=== PATIENT | female | born 1955 | race Caucasian/White ===

== ENCOUNTER 2017-09-08 18:40 | Inpatient (IN) | payer MEDICARE, OTHER ==
[~2017-09-08] VITALS: Ht 165.1 cm; Wt 105.3 kg
[~2017-09-08 18:40] MED LIST: ACTIGALL300 MG PO; ALBUTEROL0.63 MG/3; ALDACTONE25 MG PO; CALCIUM CARBON500 MG PO; DICYCLOMINE HCL20 MG PO; GABAPENTIN300 MG PO; GLIPIZIDE-METF1 EAC2 PO; LACTULOSE20 GM/30 M PO; LANTUS100 UNITS/ SC; LASIX20 MG PO; LASIX40 MG PO; LEVAQUIN500 MG PO; LYRICA75 MG PO; MELOXICAM7.5 MG PO; METHOCARBAMOL750 MG PO; NEXIUM40 MG PO; ONGLYZA5 MG PO; POTASSIUM CHLO10 ME1 PO; SUCRALFATE1 GM PO; ULTRAM 50MG50 MG PO; VITAMIN E400 UNIT PO; ZOFRAN ODT4 MG PO
--- OUTSIDE RECORDS SUMMARY | 2017-09-08 18:43 | XMS REPORT | Clinical Summary ---
Author Author YORDAN [facility] Address Unknown Phone Unavailable Care Team Providers Care Traffic Analyst Name Role Phone PCP Unavailable Allergies Active Allergy Reactions Severity Noted Date Comments Codeine 03/28/2013 Meperidine 03/28/2013 Naproxen 03/28/2013 Hydrocodone-Acetaminophen 03/28/2013 Morphine Nausea And Vomiting, Rash Low 08/16/2016 Current Medications Prescription Sig. Disp. Refills Start End Date Status Date spironolactone Take 100 mg by mouth Active (ALDACTONE) 100 MG tablet daily. potassium chloride Take 20 mEq by mouth 2 Active (KLOR-CON) 10 MEQ CR (two) times daily. tablet calcium carbonate (TUMS) Take 1 tablet by mouth Active 500 mg chewable tablet daily. dicyclomine (BENTYL) 20 Take 20 mg by mouth every Active mg tablet 6 (six) hours. furosemide (LASIX) 40 MG Take 20 mg by mouth 2 Active tablet (two) times daily. insulin glargine (LANTUS) Inject 8 Units Active 100 unit/mL injection subcutaneously 2 (two) times daily Use as directed. pregabalin (LYRICA) 75 MG Take 75 mg by mouth Active capsule daily. saxagliptin 5 mg Tab Take 5 mg by mouth daily. Active ursodiol (ACTIGALL) 300 Take 300 mg by mouth 3 Active mg capsule (three) times daily. esomeprazole (NEXIUM) 40 Take 40 mg by mouth Active MG capsule daily. sucralfate (CARAFATE) 1 g Take 1 g by mouth 4 Active tablet (four) times daily. traMADol (ULTRAM) 50 mg Take 50 mg by mouth every Active tablet 6 (six) hours as needed. vitamin E 400 UNIT Take 400 Units by mouth 2 Active capsule (two) times daily. lactulose (CHRONULAC) 10 Take 30 mLs (20 g total) 1892 mL 6 03/31/20 Active gram/15 mL (15 mL) by mouth 3 (three) times 13 solution daily. magnesium 30 mg tablet Take 30 mg by mouth 2 Active (two) times daily. Active Problems Problem Noted Date Screening for malignant neoplasm 07/07/2013 Pleural effusion 03/28/2013 Ascites 03/28/2013 Hernia, incisional 03/28/2013 Cirrhosis (HCC) 03/28/2013 Obesity 03/28/2013 Diabetes mellitus, type 2 (HCC) 03/28/2013 Overview: ICD9 DX Lining Marker COPD (chronic obstructive pulmonary disease) (HCC) 03/28/2013 Encephalopathy, portal systemic (HCC) 03/28/2013 Overview: ICD9 DX Lining Marker Steatosis of liver 03/28/2013 Nausea 03/28/2013 Headache 03/28/2013 SOB (shortness of breath) 03/28/2013 Myalgia 03/28/2013 Fatigue 03/28/2013 Anemia 03/28/2013 Bleeding disorder (HCC) 03/28/2013 Bleeding nose 03/28/2013 Encounters Date Type Specialty Care Team Description 01/10/2017 Orders Only Hepatology Roseline Lucero, SAV Other cirrhosis of liver (HCC) (Primary Dx);Screening for malignant neoplasm 09/18/2016 Telephone Hepatology Kelsey Nation RN EGD/ Colonoscopy results after 09/07/2016 Social History Tobacco Use Types Packs/Day Years Used Date Never Smoker Comments: smokes e cigarettes Alcohol Use Drinks/Week oz/Week Comments No Sex Assigned at Date Recorded Not on file Last Filed Vital Signs Not on file Plan of Treatment Health Maintenance Due Date Last Done Comments INFLUENZA VACCINE 02/04/2018 Results Not on fileafter 09/07/2016
--- OUTSIDE RECORDS SUMMARY | 2017-09-08 18:43 | XMS REPORT ---
Author Author [facility] Address Unknown Phone Unavailable Care Team Providers Care Fruit Or Nut Farmworker Name Role Phone KELSEY GUILLORY Unavailable Unavailable REINALDO, RISE Unavailable Unavailable Problems This patient has no known problems. Allergies, Adverse Reactions, Alerts This patient has no known allergies or adverse reactions. Medications This patient has no known medications. Results Test Description Test Time Test Comments Text Results Atomic Results Result Comments TISSUE EXAM 2016-08-23 10:03:00 Surgical Pathology Report Case: [id number] Authorizing Provider: Kelsey Guillory MD Ordering Provider: Kelsey Guillory MD MPH MPH Ordering Location: [facility] Endoscopy Collected: 08/21/2016 1421 Services Pathologist: Varinder Rodgers MD Received: 2016 0725 Specimen: Stomach, Antrum, bx STOMACH, ANTRUM, BIOPSY: - CHRONIC INACTIVE GASTRITIS - NEGATIVE FOR H. PYLORI BY WARTHIN- STARRY STAIN Signing Pathologist Direct Phone Line: [phone] of liver without ascitesStomach antrum biopsyReceived in formalin labeled "stomach, antrum" are two fragments measuring 0.3 and 0.5 cm in greatest dimension. Entirely submitted A1. DB/plPerformed.The following special studies were performed on this case and the interpretation is incorporated in the diagnostic report above:WARTHIN-STARRY PLATELET COUNT 2016-08-21 11:12:00 PLATELET COUNT (BEAKER) (test cwer=921) 38 K/CU MM 150-430 POTASSIUM-STAT [id number] 10:42:00* Test Item Value Reference Range Comments POTASSIUM (BEAKER) (test jtad=140) 3.3 meq/L 3.6-5.5 POCT-GLUCOSE [id number] 10:37:00* Test Item Value Reference Range Comments POC-GLUCOSE METER (BEAKER) (test ohfq=7322) 126 mg/dL 70-110 TESTED AT [facility] [address] [address] [id number] 17:06:00* Test Item Value Reference Range Comments THYROID STIMULATING HORMONE (BEAKER) (test tivr=703) 1.15 uIU/mL 0.35-4.94 HEMOGLOBIN [id number] 16:43:00* Test Item Value Reference Range Comments HEMOGLOBIN A1C (BEAKER) (test pqmu=807) 7.9 % 4.3-6.1 ALPHA FETOPROTEIN (AFP), TUMOR [id number] 15:18:00* Test Item Value Reference Range Comments ALPHA-FETOPROTEIN (BEAKER) (test nafy=8517) 3.6 ng/mL <10.0 Effective 03/24/2014: Reference Range ChangeNew: <10.0 Previous: 0.0-8.0BASIC METABOLIC [id number] 14:57:00* Test Item Value Reference Range Comments SODIUM (BEAKER) (test etko=875) 137 meq/L 136-145 POTASSIUM (BEAKER) (test xcrt=335) 3.4 meq/L 3.5-5.1 CHLORIDE (BEAKER) (test aitk=020) 103 meq/L 98-107 CO2 (BEAKER) (test gprs=911) 25 meq/L 22-29 BLOOD UREA NITROGEN (BEAKER) (test xuoj=143) 9 mg/dL 7-21 CREATININE (BEAKER) (test fdyy=235) 0.79 mg/dL 0.57-1.25 GLUCOSE RANDOM (BEAKER) (test omft=726) 216 mg/dL 70-105 CALCIUM (BEAKER) (test pwkf=189) 9.2 mg/dL 8.4-10.2 EGFR (BEAKER) (test uqhv=9074) 75 mL/min/1.73 sq m ESTIMATED GFR IS NOT ACCURATE CREATININE CLEARANCE IN PREDICTING GLOMERULAR FILTRATION RATE. ESTIMATED GFR IS NOT APPLICABLE FOR DIALYSIS PATIENTS. Specimen slightly ictericLIPID [id number] 14:57:00* Test Item Value Reference Range Comments TRIGLYCERIDES (BEAKER) (test nntb=553) 54 mg/dL CHOLESTEROL (BEAKER) (test rsse=446) 146 mg/dL HDL CHOLESTEROL (BEAKER) (test kwky=104) 62 mg/dL LDL CHOLESTEROL CALCULATED (BEAKER) (test ypcr=848) 73 mg/dL Triglyceride Reference Range: Low Risk <150 Borderline 150-199 High Risk 200-499 Very High Risk >=500Cholesterol Reference Range: Low Risk <200 Borderline 200-239 High Risk >240HDL Cholesterol Reference Range: Low Risk >=60 High Risk <40LDL Cholesterol Reference Range: Optimal <100 Near Optimal 100-129 Borderline 130-159 High 160-189 Very High >=190 Specimen slightly ictericHEPATIC FUNCTION [id number] 14:57:00* Test Item Value Reference Range Comments TOTAL PROTEIN (BEAKER) (test zmuy=925) 7.3 gm/dL 6.0-8.3 ALBUMIN (BEAKER) (test gbgj=8178) 3.6 g/dL 3.5-5.0 BILIRUBIN TOTAL (BEAKER) (test deeh=276) 3.4 mg/dL 0.2-1.2 BILIRUBIN DIRECT (BEAKER) (test zytp=963) 1.2 mg/dL 0.1-0.5 ALKALINE PHOSPHATASE (BEAKER) (test ukau=222) 137 U/L 40-150 AST (SGOT) (BEAKER) (test ibrv=701) 35 U/L 5-34 ALT (SGPT) (BEAKER) (test urdc=800) 28 U/L 6-55 Specimen slightly ictericGAMMA GLUTAMYL TRANSFERASE (GGT)2016-07-12 14:57:00* Test Item Value Reference Range Comments GAMMA GLUTAMYL TRANSFERASE (BEAKER) (test ggli=641) 99 U/L 9-64 Specimen slightly ictericCBC W/PLT COUNT & AUTO [id number] 14:54:00 * Test Item Value Reference Range Comments WHITE BLOOD CELL COUNT (BEAKER) (test ekjs=110) 4.0 K/ L 4.0-10.0 RED BLOOD CELL COUNT (BEAKER) (test lzeu=960) 4.57 M/ L 4.00-5.00 HEMOGLOBIN (BEAKER) (test njmr=531) 14.1 GM/DL 12.0-15.0 HEMATOCRIT (BEAKER) (test fqtd=584) 40.1 % 36.0-45.0 MEAN CORPUSCULAR VOLUME (BEAKER) (test knue=074) 87.8 fL 82.0-99.0 MEAN CORPUSCULAR HEMOGLOBIN (BEAKER) (test cddh=838) 30.9 pg 27.0-33.0 MEAN CORPUSCULAR HEMOGLOBIN CONC (BEAKER) (test eamh=599) 35.2 GM/DL 32.0- 36.0 RED CELL DISTRIBUTION WIDTH (BEAKER) (test sycx=184) 13.4 % 10.3-14.2 PLATELET COUNT (BEAKER) (test qbim=884) 47 K/CU MM 150-430 MEAN PLATELET VOLUME (BEAKER) (test rklg=921) 10.8 fL 6.5-10.5 NUCLEATED RED BLOOD CELLS (BEAKER) (test scmj=007) 0 /100 WBC 0-0 NEUTROPHILS RELATIVE PERCENT (BEAKER) (test beef=958) 59 % LYMPHOCYTES RELATIVE PERCENT (BEAKER) (test dvxc=320) 29 % MONOCYTES RELATIVE PERCENT (BEAKER) (test natc=404) 7 % EOSINOPHILS RELATIVE PERCENT (BEAKER) (test orsb=963) 3 % BASOPHILS RELATIVE PERCENT (BEAKER) (test btvt=669) 1 % NEUTROPHILS ABSOLUTE COUNT (BEAKER) (test taru=996) 2.36 K/ L 1.80-8.00 LYMPHOCYTES ABSOLUTE COUNT (BEAKER) (test cybt=285) 1.17 K/ L 1.48-4.50 MONOCYTES ABSOLUTE COUNT (BEAKER) (test ncux=067) 0.29 K/ L 0.00-1.30 EOSINOPHILS ABSOLUTE COUNT (BEAKER) (test yucb=557) 0.14 K/ L 0.00-0.50 BASOPHILS ABSOLUTE COUNT (BEAKER) (test gntn=460) 0.04 K/ L 0.00-0.20 0.00PROTHROMBIN TIME/[id number] 14:45:00* Test Item Value Reference Range Comments PROTIME (BEAKER) (test jeuk=723) 15.1 seconds 11.7-14.7 INR (BEAKER) (test zgko=462) 1.2 <=5.9 RECOMMENDED COUMADIN/WARFARIN INR THERAPY RANGESSTANDARD DOSE: 2.0 - 3.0 Includes: PROPHYLAXIS for venous thrombosis, systemic embolization; TREATMENT for venous thrombosis and/or pulmonary embolus.HIGH RISK: Target INR is 2.5-3.5 for patients with mechanical heart valves.
[2017-09-08 19:58] LABS: BASOPHILS % 0.5 % (0.0-1.0); EOSINOPHILS # (AUTO) 0.1 (0.0-0.4); EOSINOPHILS % 3.6 % (0.0-6.0); HEMATOCRIT 36.3 % (34.2-44.1); HEMOGLOBIN 12.9 g/dL (12.0-16.0); LYMPHOCYTES # (AUTO) 1.1 (1.0-3.2); LYMPHOCYTES % 27.3 % (18.0-39.1); MEAN CORPUSCULAR HEMOGLOBIN 28.5 pg (28-32); MEAN CORPUSCULAR HGB CONC 35.5 g/dL (31-35); MEAN CORPUSCULAR VOLUME 80.3 fL (81-99); MONOCYTES # (AUTO) 0.4 (0.2-0.8); MONOCYTES % 9.9 % (4.4-11.3); NEUTROPHILS # (AUTO) 2.2 (2.1-6.9); NEUTROPHILS % 58.4 % (38.7-80.0); RED BLOOD COUNT 4.52 x10e6/uL (3.6-5.1); RED CELL DISTRIBUTION WIDTH 14.5 % (11.7-14.4)
--- NOTE | 2017-09-08 20:09 | Diagnostic Imaging Report ---
EXAM: CHEST SINGLE (NOT PORTABLE), AP 1 view INDICATION: Severe abdominal pain COMPARISON: None FINDINGS: LINES/TUBES: None LUNGS: No consolidations or edema. PLEURA: No effusions or pneumothorax. HEART AND MEDIASTINUM: Normal size and contour. BONES AND SOFT TISSUES: No acute findings. IMPRESSION: No acute thoracic abnormality. Signed by: Dr. Monica Roman M.D. on 09/08/2017 8:06 PM
[2017-09-08 20:12] LABS: PLATELET COUNT 46 x10e3/uL (140-360)
[2017-09-08 20:25] LABS: ALANINE AMINOTRANSFERASE 34 IU/L (0-55); ALBUMIN/GLOBULIN RATIO 0.8 (0.8-2.0); ALKALINE PHOSPHATASE 123 IU/L (40-150); AMYLASE 42 U/L (25-125); ANION GAP 11.8 mmol/L (8-16); BLOOD UREA NITROGEN 9 mg/dL (7-26); BUN/CREATININE RATIO 11 (6-25); CALCIUM 10.5 mg/dL (8.4-10.2); CARBON DIOXIDE 25 mmol/L (22-29); CHLORIDE 103 mmol/L (98-107); CREATINE KINASE 386 IU/L (29-168); CREATININE, SERUM 0.85 mg/dL (0.57-1.11); EST GLOMERULAR FILTRATION RATE > 60 ML/MIN (60-); GLUCOSE 210 mg/dL (74-118); LIPASE 128 U/L (8-78); POTASSIUM 3.8 mmol/L (3.5-5.1); SODIUM 136 mmol/L (136-145)
[2017-09-08] MEDS ORDERED: ONDANSETRON HCL 4 MG ORAL DISINTEGRATING TAB PO ONE (20:30)
[2017-09-08] MEDS ORDERED: IOPAMIDOL 370 MG/ML 200 ML INFUS..BTL INJ ONE (20:49)
[2017-09-08] MEDS ORDERED: SODIUM CHLORIDE 0.9% 50ML 50 ML ONE (20:49)
[2017-09-08] MEDS ORDERED: HYDROMORPHONE 1MG/1ML INJ IV STA (21:44)
[2017-09-08 21:50] LABS: CLARITY,URINE CLOUDY (CLEAR); COLOR,URINE YELLOW (YELLOW)
[2017-09-08 21:51] LABS: LEUKOCYTE ESTERASE ,URINE NEGATIVE (NEGATIVE); NITRITE,URINE POSITIVE (NEGATIVE); PROTEIN,URINE DIPSTICK NEGATIVE (NEGATIVE)
[2017-09-08 21:52] LABS: BILIRUBIN,URINE NEGATIVE (NEGATIVE); KETONES,URINE NEGATIVE (NEGATIVE); URINE UROBILINOGEN 0.2 mg/dL (0.2 - 1)
--- NOTE | 2017-09-08 22:15 | Diagnostic Imaging Report ---
EXAM: CT ABDOMEN AND PELVIS with IV CONTRAST DATE: 09/08/2017 7:27 PM Time stamp on Exam: 2152 hours INDICATION: Diffuse abdominal pain COMPARISON: CT abdomen and pelvis November 19, 2016 TECHNIQUE: The abdomen and pelvis were scanned using a multidetector helical scanner. Coronal and sagittal reformations were obtained. Routine protocol performed. IV Contrast: 100 cc Isovue-370 Oral Contrast: Water CTDIvol has been reviewed. It is below the limits set by the Radiation Protocol Committee (RPC). FINDINGS: LOWER THORAX: Small right pleural effusion with adjacent atelectasis. LIVER: Cirrhotic liver morphology. BILIARY: Cholecystectomy without abnormal ductal dilation. SPLEEN: Splenomegaly PANCREAS: No masses ADRENALS: No nodules KIDNEYS: Symmetric perfusion. No enhancing masses. No hydronephrosis. GI TRACT: Dilated loops of small bowel up to 5 cm with evidence of bowel stagnation at the level of prior small bowel to small bowel anastomotic site. Normal appearance of the colon. VESSELS: Dilation of the portal system, which is patent. Multiple splenic, esophageal and gastric varices. PERITONEUM/RETROPERITONEUM: No free air or fluid LYMPH NODES: No lymphadenopathy REPRODUCTIVE ORGANS: Uterus and ovaries are not visualized. BLADDER: Unremarkable SOFT TISSUES: Surgical changes of ventral hernia repair. BONES: No suspicious bone lesions. IMPRESSION: Partial small bowel obstruction with transition at prior small bowel surgery site in the anterior mid abdomen. Cirrhosis with portal hypertension including splenomegaly and varices. Signed by: Dr. Monica Roman M.D. on 09/08/2017 10:11 PM
[2017-09-08 22:20] LABS: BACTERIA,URINE MANY /HPF; EPITHELIAL CELLS,URINE FEW /LPF; RBC,URINE 0-5 /HPF (0-5); WBC,URINE (MAN) 0-5 /HPF (0-5)
[2017-09-08] MEDS ORDERED: HYDROMORPHONE 1MG/1ML INJ IV PRN (22:45)
[2017-09-08] MEDS ORDERED: ONDANSETRON HCL 4 MG ORAL DISINTEGRATING TAB ONE (22:52)
[2017-09-08] MEDS: ONDANSETRON HCL 4 MG ORAL DISINTEGRATING TAB PO PRN (22:58)
[2017-09-08] MEDS: SODIUM CHLORIDE 0.9% 1000ML 1,000 ML IV SCH (22:58)
[2017-09-08] MEDS ORDERED: CEFOXITIN SOD 1 GM VIAL ONE (23:10)
[2017-09-08] MEDS ORDERED: CEFOXITIN 1GM/ DEXTROSE 50ML 50 ML IV ONE (23:15)
--- OUTSIDE RECORDS SUMMARY | 2017-09-08 23:41 | XMS REPORT | Clinical Summary ---
Author Author YORDAN [facility]St[facility] JeromeUrban TrafficMartin [facility] Address Unknown Phone Unavailable Care Team Providers Care Policy Intern Name Role Phone PCP Unavailable Allergies Active [...] type 2 (HCC) 03/28/2013 Overview: ICD9 DX Diver Tender COPD (chronic obstructive pulmonary disease) (HCC) 03/28/2013 Encephalopathy, portal systemic (HCC) 03/28/2013 Overview: ICD9 DX Diver Tender Steatosis of liver 03/28/2013 Nausea 03/28/2013 Headache [...]
[2017-09-09] VITALS (8 sets, daily range): BP systolic 120–139; BP diastolic 58–61
[2017-09-09] MEDS: METRONIDAZOLE 500MG/NS 100ML 100 ML IV SCH ×5 (00:10→23:16)
[2017-09-09] MEDS: ONDANSETRON HCL 4 MG ORAL DISINTEGRATING TAB PO PRN (03:16)
[2017-09-09] MEDS ORDERED: CEFOXITIN 1GM/ DEXTROSE 50ML ML IV SCH ×2 (06:00)
[2017-09-09] MEDS: CEFOXITIN SOD 1 GM VIAL IV SCH ×3 (06:13→21:42)
[2017-09-09] MEDS: SODIUM CHLORIDE 0.9% 1000ML 1,000 ML IV SCH ×2 (06:43→10:18)
[2017-09-09] MEDS ORDERED: MELOXICAM7.5 MG PO (06:49)
[2017-09-09] MEDS ORDERED: METHIMAZOLE10 MG PO (06:49)
[2017-09-09] MEDS ORDERED: SPIRONOLACTONE25 MG PO (06:49)
[2017-09-09] MEDS ORDERED: LACTULOSE20 GM/30 M PO (06:49)
[2017-09-09] MEDS ORDERED: LISINOPRIL10 MG PO (06:49)
[2017-09-09] MEDS ORDERED: ALBUTEROL0.63 MG/3 IH (06:49)
[2017-09-09] MEDS ORDERED: ROBAXIN-750750 MG PO (06:49)
[2017-09-09] MEDS ORDERED: HEMOCYTE PLUS1 EACH PO (06:49)
[2017-09-09] MEDS ORDERED: URSODIOL300 MG PO (07:07)
[2017-09-09] MEDS ORDERED: ULTRAM 50MG50 MG PO (07:07)
[2017-09-09] MEDS ORDERED: XIFAXAN550 MG PO (07:07)
[2017-09-09] MEDS ORDERED: VENTOLIN HFA18 GM INH (07:07)
[2017-09-09] MEDS ORDERED: LANTUS 3ML100 UNITS/ SC (07:10)
[2017-09-09] MEDS: HYDROMORPHONE 2MG/ML INJ IV PRN ×4 (08:58→23:16)
[2017-09-09 09:14] LABS: BASOPHILS % 0.8 % (0.0-1.0); EOSINOPHILS # (AUTO) 0.1 (0.0-0.4); EOSINOPHILS % 1.6 % (0.0-6.0); HEMATOCRIT 35.4 % (34.2-44.1); HEMOGLOBIN 12.3 g/dL (12.0-16.0); LYMPHOCYTES # (AUTO) 0.6 (1.0-3.2); LYMPHOCYTES % 16.9 % (18.0-39.1); MEAN CORPUSCULAR HEMOGLOBIN 28.1 pg (28-32); MEAN CORPUSCULAR HGB CONC 34.7 g/dL (31-35); MEAN CORPUSCULAR VOLUME 80.8 fL (81-99); MONOCYTES # (AUTO) 0.3 (0.2-0.8); MONOCYTES % 6.8 % (4.4-11.3); NEUTROPHILS # (AUTO) 2.7 (2.1-6.9); NEUTROPHILS % 73.6 % (38.7-80.0); RED BLOOD COUNT 4.38 x10e6/uL (3.6-5.1); RED CELL DISTRIBUTION WIDTH 14.6 % (11.7-14.4)
[2017-09-09] MEDS: ONDANSETRON HCL INJ 2 MG/ML VIAL IV PRN ×4 (09:16→23:16)
[2017-09-09 09:20] LABS: PLATELET COUNT 38 x10e3/uL (140-360)
[2017-09-09 09:29] LABS: ALANINE AMINOTRANSFERASE 40 IU/L (0-55); ALBUMIN 2.7 g/dL (3.5-5.0); ALBUMIN/GLOBULIN RATIO 0.8 (0.8-2.0); ALKALINE PHOSPHATASE 117 IU/L (40-150); AMYLASE 99 U/L (25-125); ANION GAP 11.1 mmol/L (8-16); BLOOD UREA NITROGEN 11 mg/dL (7-26); BUN/CREATININE RATIO 14 (6-25); CALCIUM 9.2 mg/dL (8.4-10.2); CARBON DIOXIDE 24 mmol/L (22-29); CHLORIDE 103 mmol/L (98-107); EST GLOMERULAR FILTRATION RATE > 60 ML/MIN (60-); LIPASE 568 U/L (8-78); POTASSIUM 4.1 mmol/L (3.5-5.1); SODIUM 134 mmol/L (136-145)
[2017-09-09 10:37] LABS: GLUCOSE 198 mg/dL (74-118)
[2017-09-09] MEDS ORDERED: ONDANSETRON HCL 4 MG ORAL DISINTEGRATING TAB PO PRN (11:45)
[2017-09-09] MEDS ORDERED: DEXTROSE 50% SYRINGE 50 ML IV PRN (12:00)
[2017-09-09] MEDS ORDERED: TRAMADOL HCL 50 MG TAB PO SCH (12:00)
[2017-09-09] MEDS: INSULIN LISPRO 100 UNIT/1 ML 3ML VIAL SQ SCH ×3 (12:14→21:41)
[2017-09-09] MEDS ORDERED: TRAMADOL HCL 50 MG TAB PO PRN ×2 (12:15)
--- NOTE | 2017-09-09 14:57 | History and Physical ---
PRIMARY CARE PHYSICIAN: Dr. Cj Samuels. CHIEF COMPLAINT: Abdominal pain, nausea, vomiting, and small bowel obstruction. HISTORY OF PRESENT ILLNESS: Patient is a 61-year-old female who lives at [facility]. The patient has history of cryptogenic liver cirrhosis, advanced stage, presented with abdominal pain, distention, and nausea and vomiting. She is stable now. This has been going on for the past week, much worsened. Her laboratory workup showed that her platelets are low, which is consistent with her liver cirrhosis. Her blood sugar is elevated. Patient's lipase was slightly elevated. She does have chronic pancreatitis. Blood sugar is in the 200s. Liver enzymes slightly elevated as well. Patient had workup done. The abdominal CT scan is showing that she has partial small bowel obstruction with , had prior small bowel surgery in the anterior mid abdomen. She does have cirrhosis, portal hypertension including splenomegaly, and . The patient is admitted for further evaluation and treatment. PAST MEDICAL HISTORY: Cryptogenic liver cirrhosis, morbid obesity, diabetes type 2, chronic pancreatitis, COPD, irritable bowel syndrome, obstructive sleep apnea, reflux history, and chronic esophagitis. PAST SURGICAL HISTORY: Appendectomy, cholecystectomy, and hysterectomy. SOCIAL HISTORY: Patient lives at [facility]. She does not smoke or use alcohol or recreational drugs. ALLERGIES: MEPERIDINE, METFORMIN, NAPROXEN, ACETAMINOPHEN, HYDROCODONE, CODEINE, MORPHINE, GLIPIZIDE, AND NSAID. HOME MEDICATIONS: Albuterol, iron, Lasix, Lantus, lactulose, lisinopril, meloxicam, methimazole, Robaxin, rifaximin, spironolactone, tramadol, ursodiol, and Zofran. PHYSICAL EXAMINATION VITAL SIGNS: Temperature is 99, blood pressure 160/70, pulse rate 84, and respirations 18. GENERAL: The patient is not in any acute distress. She is awake. HEENT: Normocephalic, atraumatic. Anicteric. NECK: Supple grossly. PULMONARY: Diminished breath sounds. CARDIOVASCULAR: S1 and S2. Regular rate and rhythm. ABDOMEN: Morbidly obese, slight distention and some tenderness. No rebound or guarding. EXTREMITIES: No cyanosis or edema. NEUROLOGIC: No gross focal deficits. LABORATORY: Sodium 136, potassium 3.8, chloride 103, bicarb 25, BUN 9, creatinine 0.8, and glucose 210. WBC 2.8, hemoglobin 13, hematocrit 36, and platelets 46. AST is 45, ALT 34, and alkaline phosphatase 123. IMPRESSION 1. Small bowel obstruction. 2. Abdominal pain and distention. 3. History of liver cirrhosis with history of baseline thrombocytopenia. 4. Possible urinary tract infection with urinalysis of positive nitrite and many bacteria. 5. Cloudy urine, 2+ leukos. PLAN 1. Antibiotics. 2. Home medications resumed. 3. Repeated lab work. 4. Slight rehydration. 1. NPO except for medication at this time. 2. We will monitor the patient closely. Job#: [id number] DOMINIQUE
[2017-09-09] MEDS: ALBUTEROL SULF 0.083% NEB SOLN 3 ML NEB NEB SCH ×3 (15:00→23:10)
[2017-09-09] MEDS: RIFAXIMIN 550 MG TABLET PO SCH (16:54)
[2017-09-09] MEDS: INSULIN DETEMIR 100 UNIT/ML PEN SQ SCH (16:54)
--- NOTE | 2017-09-09 17:18 | Consultation ---
DATE OF CONSULTATION: September 09, 2017 CHIEF COMPLAINT: Abdominal pain. HISTORY OF PRESENT ILLNESS: The patient is a 61-year-old female with a 1-day history of pain in periumbilical and epigastric regions, cramping in nature, with several bouts of vomiting today. No fever, chills or diarrhea. The patient has passed flatus. The patient states she had recurrent bowel obstruction requiring several days of hospitalization in the past. PAST MEDICAL HISTORY: Significant for liver cirrhosis, recurrent pancreatitis, recurrent bowel obstruction, hepatic encephalopathy. SURGICAL HISTORY: Positive for hiatal hernia repair, cholecystectomy, several abdominal operations for bowel obstruction as well as bowel perforation. ALLERGIES: PATIENT HAS ALLERGIC REACTION TO ALL NSAID MEDICATIONS, CODEINE, TYLENOL, GLIPIZIDE, METFORMIN, MORPHINE AND DEMEROL. SOCIAL HABITS: Denies alcohol abuse. REVIEW OF SYSTEMS: No chest pain. No shortness of breath. PHYSICAL EXAMINATION VITAL SIGNS: Stable. She is afebrile. GENERAL: She is awake, alert, in moderate discomfort. HEENT: Sclerae are anicteric. NECK: Supple. LUNGS: Clear. HEART: Regular rate and rhythm. ABDOMEN: Moderately distended but soft. There is tenderness to palpation in the epigastric and supraumbilical area with mild guarding but no rebound. EXTREMITIES: Without cyanosis or edema. LABS: White cell count is 3.6, hemoglobin 12. Creatinine of 0.8. Liver function tests within normal limits. Bilirubin of 4.7, alkaline phosphatase 117, lipase 568. CT of the abdomen showed partial intestinal obstruction in the mid abdomen. Portal hypertension secondary to cirrhotic liver. ASSESSMENT: Recurrent small-bowel obstruction. Currently no vomiting. PLAN: Continue serial abdominal exams and x-rays. Follow serum lipase. Thank you for this consultation. Job#: [id number]
[2017-09-09] MEDS ORDERED: METHOCARBAMOL 750 MG TAB PO SCH (21:00)
[2017-09-09] MEDS ORDERED: LISINOPRIL 10 MG TAB PO SCH (21:00)
[2017-09-09] MEDS: LISINOPRIL 20 MG TAB PO SCH (21:41)
[2017-09-09] MEDS: METHOCARBAMOL 500 MG TAB PO SCH (21:41)
[2017-09-09] MEDS ORDERED: CEFOXITIN SOD 1 GM VIAL IV SCH (23:00)
[2017-09-10] VITALS (8 sets, daily range): BP systolic 87–108; BP diastolic 47–66
[2017-09-10] MEDS: ALBUTEROL SULF 0.083% NEB SOLN 3 ML NEB NEB SCH ×5 (03:50→20:00)
[2017-09-10] MEDS: HYDROMORPHONE 2MG/ML INJ IV PRN ×4 (03:58→22:10)
[2017-09-10] MEDS: ONDANSETRON HCL INJ 2 MG/ML VIAL IV PRN ×4 (03:58→22:11)
[2017-09-10] MEDS: SODIUM CHLORIDE 0.9% 1000ML 1,000 ML IV SCH ×2 (03:58→17:32)
[2017-09-10] MEDS: CEFOXITIN SOD 1 GM VIAL IV SCH ×3 (05:29→22:00)
[2017-09-10] MEDS: METRONIDAZOLE 500MG/NS 100ML 100 ML IV SCH ×5 (05:29→23:35)
--- NOTE | 2017-09-10 06:11 | Diagnostic Imaging Report ---
EXAM: ABDOMEN-1VIEW (KUB), supine INDICATION: Small bowel obstruction COMPARISON: None FINDINGS: LINES/TUBES: None BOWEL PATTERN: No evidence for obstruction. SOFT TISSUES: Surgical clips right upper quadrant of the abdomen. BONES: No acute findings. IMPRESSION: Nonobstructive bowel gas pattern. Signed by: Dr. Monica Roman M.D. on 09/10/2017 6:07 AM
[2017-09-10 06:50] LABS: BASOPHILS % 0.7 % (0.0-1.0); EOSINOPHILS # (AUTO) 0.1 (0.0-0.4); HEMATOCRIT 36.4 % (34.2-44.1); HEMOGLOBIN 12.2 g/dL (12.0-16.0); LYMPHOCYTES # (AUTO) 0.5 (1.0-3.2); MEAN CORPUSCULAR HEMOGLOBIN 28.6 pg (28-32); MEAN CORPUSCULAR HGB CONC 33.5 g/dL (31-35); MEAN CORPUSCULAR VOLUME 85.2 fL (81-99); MONOCYTES # (AUTO) 0.5 (0.2-0.8); MONOCYTES % 11.9 % (4.4-11.3); NEUTROPHILS # (AUTO) 3.3 (2.1-6.9); RED BLOOD COUNT 4.27 x10e6/uL (3.6-5.1); RED CELL DISTRIBUTION WIDTH 14.9 % (11.7-14.4)
[2017-09-10 07:10] LABS: PLATELET COUNT 38 x10e3/uL (140-360)
[2017-09-10 07:18] LABS: ALBUMIN 2.5 g/dL (3.5-5.0); ALBUMIN/GLOBULIN RATIO 0.8 (0.8-2.0); ANION GAP 14.9 mmol/L (8-16); CALCIUM 8.5 mg/dL (8.4-10.2); CREATININE, SERUM 1.18 mg/dL (0.57-1.11); POTASSIUM 3.9 mmol/L (3.5-5.1)
[2017-09-10 07:41] LABS: THYROID STIMULATING HORMONE 0.778 uIU/mL (0.350-4.940)
[2017-09-10 07:45] LABS: MAGNESIUM 1.1 MG/DL (1.3-2.1)
[2017-09-10] MEDS: INSULIN LISPRO 100 UNIT/1 ML 3ML VIAL SQ SCH ×4 (08:30→21:26)
[2017-09-10] MEDS ORDERED: METHIMAZOLE PO SCH (09:00)
[2017-09-10] MEDS: METHIMAZOLE 5 MG TAB PO SCH (09:02)
[2017-09-10] MEDS: INSULIN DETEMIR 100 UNIT/ML PEN SQ SCH ×2 (09:02→17:32)
[2017-09-10] MEDS: LACTULOSE SYRUP 20 GM/30 ML UDC PO SCH (09:02)
[2017-09-10] MEDS: RIFAXIMIN 550 MG TABLET PO SCH ×2 (09:02→17:32)
[2017-09-10 09:33] LABS: ANISOCYTOSIS SLIGHT; BLAST CELLS % MANUAL 1; EOSINOPHILS % (MANUAL) 1 % (0-7); LYMPHOCYTES % (MANUAL) 15 % (19-48); MONOCYTES % (MANUAL) 4 % (3.4-9.0); NEUTROPHILS % (MANUAL) 79 % (40-74); PLATELET ESTIMATE MODERATELY DECREASED; RBC MORPHOLOGY COMMENT NORMAL; TEAR DROP CELLS FEW
[2017-09-10 09:34] LABS: PLATELET MORPHOLOGY COMMENT FEW GIANT
[2017-09-10] MEDS ORDERED: MAGNESIUM SULFATE 2GM/50ML 50 ML IV ONE ×3 (16:30→21:45)
[2017-09-10] MEDS: METHOCARBAMOL 500 MG TAB PO SCH (21:26)
[2017-09-10] MEDS: LISINOPRIL 20 MG TAB PO SCH (21:30)
[2017-09-11] MEDS: METRONIDAZOLE 500MG/NS 100ML 100 ML IV SCH ×3 (01:00→12:39)
[2017-09-11 01:11] VITALS: BP 102/51
[2017-09-11] MEDS: ALBUTEROL SULF 0.083% NEB SOLN 3 ML NEB NEB SCH ×8 (01:15→23:00)
[2017-09-11] MEDS: CEFOXITIN SOD 1 GM VIAL IV SCH ×3 (05:26→22:00)
--- NOTE | 2017-09-11 06:36 | Diagnostic Imaging Report ---
ABDOMEN-1VIEW (KUB) Clinical history: Small bowel obstruction Technique: AP view abdomen Comparison: 09/10/2017 Findings: No dilated loops of small or large bowel. Mild to moderate stool is seen in the colon. Right upper quadrant clips. Impression: Nonobstructive bowel gas pattern. Signed by: Dr Kathrin Gross MD on 09/11/2017 6:33 AM
[2017-09-11 08:00] VITALS: BP 98/52
[2017-09-11] MEDS: INSULIN LISPRO 100 UNIT/1 ML 3ML VIAL SQ SCH ×4 (08:00→21:00)
[2017-09-11] MEDS: HYDROMORPHONE 2MG/ML INJ IV PRN (08:30)
[2017-09-11] MEDS: INSULIN DETEMIR 100 UNIT/ML PEN SQ SCH ×2 (09:00→17:20)
[2017-09-11] MEDS: SODIUM CHLORIDE 0.9% 1000ML 1,000 ML IV SCH (09:36)
[2017-09-11] MEDS: METHIMAZOLE 5 MG TAB PO SCH (09:37)
[2017-09-11] MEDS: RIFAXIMIN 550 MG TABLET PO SCH ×2 (09:37→17:19)
[2017-09-11] MEDS: LACTULOSE SYRUP 20 GM/30 ML UDC PO SCH (09:37)
[2017-09-11 12:00] VITALS: BP 99/49
[2017-09-11 16:00] VITALS: BP 132/55
[2017-09-11] MEDS ORDERED: FUROSEMIDE 40 MG TAB PO SCH (17:00)
[2017-09-11 20:00] VITALS: BP 137/63
[2017-09-11] MEDS: LISINOPRIL 20 MG TAB PO SCH (22:27)
[2017-09-11] MEDS: ONDANSETRON HCL 4 MG ORAL DISINTEGRATING TAB SL PRN (22:27)
[2017-09-11] MEDS: METHOCARBAMOL 500 MG TAB PO SCH (22:27)
[2017-09-12] VITALS (7 sets, daily range): BP systolic 111–143; BP diastolic 51–63
[2017-09-12] MEDS: ALBUTEROL SULF 0.083% NEB SOLN 3 ML NEB NEB SCH ×5 (03:00→23:20)
[2017-09-12] MEDS: CEFOXITIN SOD 1 GM VIAL IV SCH (05:38)
[2017-09-12] MEDS: ONDANSETRON HCL 4 MG ORAL DISINTEGRATING TAB SL PRN (05:45)
[2017-09-12] MEDS ORDERED: AZTREONAM 1 GM/NS 50 ML 50 ML IV SCH (08:45)
[2017-09-12] MEDS ORDERED: PROMETHAZINE 12.5MG/ NACL 0.9% 12.5 MG/50 ML BAG IV PRN (08:45)
[2017-09-12] MEDS: LACTULOSE SYRUP 20 GM/30 ML UDC PO SCH (09:00)
[2017-09-12] MEDS ORDERED: SODIUM CHLORIDE 0.9% 250ML 250 ML ONE (09:02)
[2017-09-12] MEDS: INSULIN LISPRO 100 UNIT/1 ML 3ML VIAL SQ SCH ×4 (09:16→21:20)
[2017-09-12] MEDS: INSULIN DETEMIR 100 UNIT/ML PEN SQ SCH ×2 (09:16→17:10)
[2017-09-12] MEDS: FUROSEMIDE INJ 10 MG/ML 4 ML VIAL IV SCH (09:16)
[2017-09-12 09:35] LABS: ALANINE AMINOTRANSFERASE 37 IU/L (0-55); ALBUMIN 2.5 g/dL (3.5-5.0); ALBUMIN/GLOBULIN RATIO 0.8 (0.8-2.0); ALKALINE PHOSPHATASE 128 IU/L (40-150); ANION GAP 12.5 mmol/L (8-16); BLOOD UREA NITROGEN 15 mg/dL (7-26); BUN/CREATININE RATIO 19 (6-25); CALCIUM 8.4 mg/dL (8.4-10.2); CARBON DIOXIDE 23 mmol/L (22-29); CHLORIDE 107 mmol/L (98-107); CREATININE, SERUM 0.77 mg/dL (0.57-1.11); EST GLOMERULAR FILTRATION RATE > 60 ML/MIN (60-); GLUCOSE 128 mg/dL (74-118); LIPASE 72 U/L (8-78); PHOSPHORUS 2.3 MG/DL (2.3-4.7); POTASSIUM 4.5 mmol/L (3.5-5.1); SODIUM 138 mmol/L (136-145)
[2017-09-12 09:38] LABS: MAGNESIUM 1.1 MG/DL (1.3-2.1)
[2017-09-12] MEDS: METHIMAZOLE 5 MG TAB PO SCH (10:06)
[2017-09-12] MEDS: RIFAXIMIN 550 MG TABLET PO SCH ×2 (10:06→17:10)
[2017-09-12] MEDS: SPIRONOLACTONE 25 MG TAB PO SCH (10:06)
[2017-09-12] MEDS: AZTREONAM 1 GM VIAL IV SCH ×2 (10:07→22:00)
[2017-09-12] MEDS: METOCLOPRAMIDE HCL 10 MG/2ML VIAL IV SCH ×3 (12:37→22:00)
--- NOTE | 2017-09-12 16:29 | Consultation ---
DATE OF CONSULTATION: September 12, 2017 GASTROENTEROLOGY CONSULTATION REFERRING PHYSICIAN: Dr. Luis Key. REASON FOR CONSULT 1. BALDERAS liver cirrhosis with portal hypertension. 2. Partial small-bowel obstruction. 3. Upper abdominal pain x2 days. HISTORY OF PRESENTING ILLNESS: A 61-year-old very pleasant white female who is a patient of my associate, Dr. Gee. She was seen by him less than a year ago. She also has had upper endoscopy as well as colonoscopy sometime in the beginning of the last year. Patient also has a history of cholecystectomy. As per patient, during cholecystectomy there occurred some complication and the small bowel got nicked. Therefore, she also ended up getting some portion of small bowel resected followed by end-to-end anastomosis. She got admitted this time with abdominal pain, nausea, vomiting. A CT of the abdomen done in the emergency room showed a partial small-bowel obstruction. She was treated conservatively under supervision of surgeon Dr. Brooks. Small-bowel obstruction subsequently got resolved. She is eating as well as having a bowel movement. CT also showed cirrhotic liver, no ascites, esophageal as well as gastric varices with splenomegaly. Lab work revealed expected thrombocytopenia from underlying portal hypertension. She also had an abdominal x-ray done today that showed a nonobstructive bowel-gas pattern. Patient does not have any history of reflux. However, she does admit to have some burning sour taste in mouth as well as upper abdominal pain. REVIEW OF SYSTEMS: A 12-point systems reviewed. Symptomatology is limited as per HPI. PAST MEDICAL HISTORY: BALDERAS liver cirrhosis, obesity, type 2 diabetes, history of pancreatitis in the past, COPD, irritable bowel syndrome, obstructive sleep apnea, history of esophagitis in the past. PAST SURGICAL HISTORY: Cholecystectomy, hysterectomy, appendectomy, some small-bowel surgery with end-to-end anastomosis. FAMILY HISTORY: Negative for any GI or FLOODPLAIN MANAGER malignancy. SOCIAL HISTORY: Lives in [facility]. No smoke, alcohol or any illicit drug use. ALLERGIES: MEPERIDINE, METFORMIN, NAPROXEN, ACETAMINOPHEN, HYDROCODONE, CODEINE, MORPHINE, GLIPIZIDE AND NSAIDS. HOME MEDICATION: Albuterol, iron, Lasix, Lantus, lactulose, lisinopril, meloxicam, methimazole, Robaxin, rifaximin, spironolactone, tramadol, ursodiol, Zofran. PHYSICAL EXAMINATION VITAL SIGNS: Temperature 98.1, pulse 89, respiration 16, blood pressure 143/63, oxygen saturation 96% on room air. GENERAL: Not in any apparent distress. HEENT: Moist mucous membrane. Anicteric sclerae. CVS: S1/S2 regular. LUNGS: Bilaterally grossly clear with decreased breath sounds at both bases. ABDOMEN: Obese. Right upper quadrant and epigastric tenderness on deep palpation without rebound, rigidity or guarding. Bowel sounds present. EXTREMITIES: Warm. Trace bilateral leg edema. LAB: WBC 4.45, hemoglobin 12.2, hematocrit 36.4, MCV 85.2, platelet count 38. Sodium 138, potassium 4.5, chloride 107, bicarb 23, BUN 15, creatinine 0.77, glucose 128. Liver enzymes showed a total bilirubin 2.7, AST 65, ALT 37, alkaline phosphatase 128. Albumin 2.2. Amylase and lipase level normal today. Lipase level was elevated to 568, came down to 418 and 72 today. Abdominal x-ray done yesterday showed a nonobstructive bowel-gas pattern. IMPRESSION 1. Small-bowel obstruction, resolved. 2. Decompensated liver cirrhosis with underlying portal hypertension. No ascites. Therefore, abdominal pain cannot be due to any underlying spontaneous bacterial peritonitis. 3. Tenderness, abdominal pain is mainly in the upper quadrant. She also has a history of reflux as well as esophagitis in the past. She is not on any PPI. PLAN: From GI standpoint, give it a trial of PPI. Avoid NSAIDs. If patient's pain gets better, then she can be discharged home to follow with Dr. Gee within a week or two. She is getting intravenous aztreonam empirically for possible urinary tract infection. Her elevated lipase level is not due to any underlying pancreatitis. Pancreas is normal on CT. Elevated lipase level was secondary to a small-bowel obstruction which has resolved. I thank Dr. Key for allowing me to participate in the care of this patient. Job#: [id number] EV
[2017-09-12] MEDS ORDERED: MAGNESIUM SULFATE 2GM/50ML 50 ML IV ONE ×2 (16:45→20:00)
[2017-09-12] MEDS: PANTOPRAZOLE SOD 40 MG TABEC PO SCH (17:09)
[2017-09-12 18:22] LABS: BILIRUBIN,URINE NEGATIVE (NEGATIVE); CLARITY,URINE CLEAR (CLEAR); COLOR,URINE AMBER (YELLOW); KETONES,URINE NEGATIVE (NEGATIVE); LEUKOCYTE ESTERASE ,URINE NEGATIVE (NEGATIVE); NITRITE,URINE NEGATIVE (NEGATIVE); PROTEIN,URINE DIPSTICK NEGATIVE (NEGATIVE); URINE UROBILINOGEN 0.2 mg/dL (0.2 - 1)
[2017-09-12 18:39] LABS: EPITHELIAL CELLS,URINE MANY /LPF; RBC,URINE 0-5 /HPF (0-5); WBC,URINE (MAN) 0-5 /HPF (0-5)
[2017-09-12] MEDS: METHOCARBAMOL 500 MG TAB PO SCH (21:19)
[2017-09-12] MEDS: LISINOPRIL 20 MG TAB PO SCH (21:19)
[2017-09-13] VITALS: BP 102/50
[2017-09-13] MEDS: ALBUTEROL SULF 0.083% NEB SOLN 3 ML NEB NEB SCH ×2 (02:45→08:49)
[2017-09-13 04:00] VITALS: BP 104/50
[2017-09-13] MEDS: INSULIN LISPRO 100 UNIT/1 ML 3ML VIAL SQ SCH (07:30)
[2017-09-13 07:36] VITALS: BP 104/50
[2017-09-13 07:39] LABS: ALANINE AMINOTRANSFERASE 34 IU/L (0-55); ALBUMIN 2.4 g/dL (3.5-5.0); ALBUMIN/GLOBULIN RATIO 0.8 (0.8-2.0); ALKALINE PHOSPHATASE 119 IU/L (40-150); ANION GAP 11.6 mmol/L (8-16); BLOOD UREA NITROGEN 16 mg/dL (7-26); BUN/CREATININE RATIO 20 (6-25); CALCIUM 8.8 mg/dL (8.4-10.2); CARBON DIOXIDE 28 mmol/L (22-29); CHLORIDE 106 mmol/L (98-107); CREATININE, SERUM 0.82 mg/dL (0.57-1.11); EST GLOMERULAR FILTRATION RATE > 60 ML/MIN (60-); GLUCOSE 114 mg/dL (74-118); MAGNESIUM 1.7 MG/DL (1.3-2.1); PHOSPHORUS 3.6 MG/DL (2.3-4.7); POTASSIUM 4.6 mmol/L (3.5-5.1); SODIUM 141 mmol/L (136-145)
[2017-09-13 08:23] VITALS: BP_SYST 100; BP_SYST 138; BP_DIAS 50; BP_DIAS 63
[2017-09-13] MEDS: LACTULOSE SYRUP 20 GM/30 ML UDC PO SCH (08:24)
[2017-09-13] MEDS: INSULIN DETEMIR 100 UNIT/ML PEN SQ SCH (08:24)
[2017-09-13] MEDS: FUROSEMIDE INJ 10 MG/ML 4 ML VIAL IV SCH (08:24)
[2017-09-13] MEDS: METOCLOPRAMIDE HCL 10 MG/2ML VIAL IV SCH (08:24)
[2017-09-13] MEDS: RIFAXIMIN 550 MG TABLET PO SCH (08:24)
[2017-09-13] MEDS: SPIRONOLACTONE 25 MG TAB PO SCH (08:24)
[2017-09-13] MEDS: METHIMAZOLE 5 MG TAB PO SCH (08:24)
[2017-09-13] MEDS: AZTREONAM 1 GM VIAL IV SCH (08:24)
[2017-09-13] MEDS: PANTOPRAZOLE SOD 40 MG TABEC PO SCH (08:24)
--- NOTE | 2017-09-13 09:48 | Discharge Summary ---
PCP: Dr. Cj Waters MIDDLE SCHOOL TUTOR: Dr. Jason Brooks and Dr. Memo Gee. FINAL DIAGNOSES 1. Small-bowel obstruction. 2. Baseline history of liver cirrhosis associated with thrombocytopenia. 3. Chronic pancreatitis associated abdominal pain. 4. Possible early spontaneous bacterial peritonitis. SUMMARY: A 61-year-old obese female with multiple medical problems at baseline came in with abdominal distention and pain. Patient had multiple abdominal surgeries in the past. She has liver cirrhosis. The patient came in with small-bowel obstruction evidenced on CT and repeated KUB. Patient was treated conservatively. She was nauseated, but no vomiting. No NG tube was placed due to risk for bleed secondary to liver cirrhosis. Patient was placed on nothing by mouth, and subsequently advanced diet as she gets better with abdominal distention improved and small-bowel obstruction improved as well. Currently, the patient is stable. Her lipase was in the 500s. Lipase last was 72. Her magnesium was low and it has been replaced. The patient is stable. BUN and creatinine of 16 and 0.8. The patient's platelets are running from 38,000 to 46,000. That is her baseline. She does have leukopenia secondary to liver cirrhosis as well. Her hemoglobin and hematocrit is 12.2 and 36.4 respectively. Urine is stable. No sign of infection. The patient is stable. She will go home today. She will follow up as an outpatient with Dr. Cj Waters. Of note, her B12 level was 645. DISCHARGE MEDICATIONS 1. Magnesium oxide 400 mg twice a day. 2. Cipro 500 mg b.i.d. for 7 days. 3. Diflucan 100 mg daily for 7 days. Patient is stable and discharged home today. Job#: [id number] LA
== END 2017-09-13 11:15 | disposition home or self-care (01) | DRG 388 ==
LOC: ER 18:40 → ERHOLD 23:39 → MED/SURG2 09-09 03:13 → MED/SURG 09-11 20:18
PROVIDERS: ADMIT Internal Medicine; ATTEND Internal Medicine
DX: K56.51 Intestinal adhesions [bands], with partial obstruction (principal); K65.2 Spontaneous bacterial peritonitis; K86.1 Other chronic pancreatitis; K76.6 Portal hypertension; N39.0 Urinary tract infection, site not specified; D69.59 Other secondary thrombocytopenia; G89.29 Other chronic pain; K75.81 Nonalcoholic steatohepatitis (NASH); J44.9 Chronic obstructive pulmonary disease, unspecified; E66.01 Morbid (severe) obesity due to excess calories; Z68.38 Body mass index [BMI] 38.0-38.9, adult; G47.33 Obstructive sleep apnea (adult) (pediatric); E86.0 Dehydration; D72.818 Other decreased white blood cell count
CPT/HCPCS: 36415; 71045; 74018; 74177; 80053; 81001; 82140; 82150; 82550; 82553; 82607; 82948; 83036; 83690; 83735; 84100; 84443; 84484; 85025; 93005; 94640; 96374; 97139; 99284; J0694; J1940; J2405; J2550; J2765; J7030; J7050; Q9967

== ENCOUNTER 2018-07-22 15:27 | Emergency (ER) | payer OTHER ==
[~2018-07-22] VITALS: Ht 165.1 cm; Wt 81.2 kg
[~2018-07-22 15:27] MED LIST changes: +ALBUTEROL0.63 MG/3 IH; +HEMOCYTE PLUS1 EACH PO; +LANTUS 3ML100 UNITS/ SC; +LISINOPRIL10 MG PO; +METHIMAZOLE10 MG PO; +ROBAXIN-750750 MG PO; +SPIRONOLACTONE25 MG PO; +URSODIOL300 MG PO; +VENTOLIN HFA18 GM INH; +XIFAXAN550 MG PO
--- OUTSIDE RECORDS SUMMARY | 2018-07-22 15:30 | XMS REPORT | Clinical Summary ---
Author Author YORDAN [facility] Address Unknown Phone Unavailable Care Team Providers Care Laundry Clerk Name Role Phone Cj Waters PCP Allergies Comments Active Allergy Reactions Severity Noted Date Codeine 03/28/2013 Meperidine 03/28/2013 Morphine Nausea And Low 08/16/2016 Vomiting, Rash Naproxen 03/28/2013 Hydrocodone-Acetaminophen 03/28/2013 Medications End Date Status Medication Sig Dispensed Refills Start Date Active spironolactone Take 100 mg 0 (ALDACTONE) 100 MG tablet by mouth daily. Active potassium chloride Take 20 mEq 0 (KLOR-CON) 10 MEQ CR by mouth 2 tablet (two) times daily. Active calcium carbonate (TUMS) Take 1 tablet 0 500 mg chewable tablet by mouth daily. Active dicyclomine (BENTYL) 20 Take 20 mg by 0 mg tablet mouth every 6 (six) hours. Active furosemide (LASIX) 40 MG Take 20 mg by 0 tablet mouth 2 (two) times daily. Active insulin glargine (LANTUS) Inject 8 0 100 unit/mL injection Units subcutaneousl y 2 (two) times daily Use as directed. Active pregabalin (LYRICA) 75 MG Take 75 mg by 0 capsule mouth daily. Active saxagliptin 5 mg Tab Take 5 mg by 0 mouth daily. Active ursodiol (ACTIGALL) 300 Take 300 mg 0 mg capsule by mouth 3 (three) times daily. Active esomeprazole (NEXIUM) 40 Take 40 mg by 0 MG capsule mouth daily. Active sucralfate (CARAFATE) 1 g Take 1 g by 0 tablet mouth 4 (four) times daily. Active traMADol (ULTRAM) 50 mg Take 50 mg by 0 tablet mouth every 6 (six) hours as needed. Active vitamin E 400 UNIT Take 400 0 capsule Units by mouth 2 (two) times daily. Active lactulose (CHRONULAC) 10 Take 30 mLs 1892 mL 6 gram/15 mL (15 mL) (20 g total) 3 solution by mouth 3 (three) times daily. Active magnesium 30 mg tablet Take 30 mg by 0 mouth 2 (two) times daily. Active Problems Problem Noted Date Screening for malignant neoplasm 07/07/2013 Pleural effusion 03/28/2013 Ascites 03/28/2013 Hernia, incisional 03/28/2013 Cirrhosis 03/28/2013 Obesity 03/28/2013 Diabetes mellitus, type 2 03/28/2013 Overview: ICD9 DX Rail Manager COPD (chronic obstructive pulmonary disease) 03/28/2013 Encephalopathy, portal systemic 03/28/2013 Overview: ICD9 DX Rail Manager Steatosis of liver 03/28/2013 Nausea 03/28/2013 Headache 03/28/2013 SOB (shortness of breath) 03/28/2013 Myalgia 03/28/2013 Fatigue 03/28/2013 Anemia 03/28/2013 Bleeding disorder 03/28/2013 Bleeding nose 03/28/2013 Social History Date Tobacco Use Types Packs/Day Years Used Never Smoker Comments: smokes e cigarettes Alcohol Use Drinks/Week oz/Week Comments No Sex Assigned at Date Recorded Not on file Industry Job Start Date Occupation Not on file Not on file Not on file Travel End Travel History Travel Start No recent travel history available. Last Filed Vital Signs Not on file Plan of Treatment Health Maintenance Due Date Last Done Comments INFLUENZA VACCINE 02/04/2018 Results Not on fileafter 07/21/2017 Insurance Payer Benefit Subscriber ID Type Phone Address Plan / Group MEDICAID - MEDICAID [facility] xxxxxxxxx Medicaid CARE COMM STAR Contracted PLAN
--- NOTE | 2018-07-22 17:21 | Diagnostic Imaging Report ---
EXAMINATION: CHEST 2 VIEWS INDICATION 62-year-old female, rule out pneumonia COMPARISON: Chest radiograph dated 09/08/2017 FINDINGS: AP and lateral views of the chest TUBES and LINES: None. LUNGS/PLEURA: Mild opacity in the right lower lobe may represent developing airspace disease versus atelectasis due to pleural effusion. Small to moderate right and small left pleural effusions. HEART AND MEDIASTINUM: The cardiomediastinal silhouette is unremarkable. BONES AND SOFT TISSUES: No acute osseous lesion. Soft tissues are unremarkable. UPPER ABDOMEN: No free air under the diaphragm. IMPRESSION: Mild opacity in the medial right lower lobe may represent atelectasis versus developing consolidation, follow-up is recommended. Interval increase in size of small to moderate right and small left pleural effusions. Signed by: Wilfred Carolina MD on 07/22/2018 5:18 PM
[2018-07-22] MEDS ORDERED: CEFTRIAXONE SOD 1 GM VIAL IM ONE (17:45)
[2018-07-22 18:10] VITALS: BP 146/74
== END 2018-07-22 18:56 | disposition home or self-care (01) ==
LOC: ER 15:27
DX: R05 Cough (principal); J15.9 Unspecified bacterial pneumonia; J90 Pleural effusion, not elsewhere classified; E11.9 Type 2 diabetes mellitus without complications; K21.9 Gastro-esophageal reflux disease without esophagitis; J45.909 Unspecified asthma, uncomplicated
CPT/HCPCS: 71046; 99283; J0696

== ENCOUNTER 2018-12-03 13:35 | Emergency (ER) | payer OTHER ==
[~2018-12-03] VITALS: Ht 165.1 cm; Wt 81.2 kg
--- OUTSIDE RECORDS SUMMARY | 2018-12-03 13:37 | XMS REPORT | Clinical Summary ---
Author Author YORDAN [facility] Address Unknown Phone Unavailable Care Team Providers Care Airport Manager Name Role Phone Cj Waters PCP Allergies [...] mellitus, type 2 03/28/2013 Overview: ICD9 DX Recruiting Intern COPD (chronic obstructive pulmonary disease) 03/28/2013 Encephalopathy, portal systemic 03/28/2013 Overview: ICD9 DX Recruiting Intern Steatosis of liver 03/28/2013 Nausea 03/28/2013 Headache [...] Signs Not on file Plan of Treatment Not on file Results Not on fileafter 12/02/2017 Insurance Payer Benefit Subscriber ID Type Phone Address Plan / Group MEDICAID - MEDICAID [facility] xxxxxxxxx Medicaid CARE COMM STAR Contracted PLAN
[2018-12-03] MEDS: TRAMADOL HCL 50 MG TAB PO ONE (14:02)
[2018-12-03 14:53] VITALS: BP 113/55
--- NOTE | 2018-12-03 15:12 | Diagnostic Imaging Report ---
EXAMINATION: FOOT LEFT COMPLETE INDICATION: Foot pain COMPARISON: None FINDINGS: 3 views of the left foot demonstrate no acute fracture or dislocation. No substantial degenerative changes. No ankle joint effusion. IMPRESSION: No acute osseous injury. Signed by: Cindy Barron MD on 12/03/2018 3:09 PM
== END 2018-12-03 15:28 | disposition home or self-care (01) ==
LOC: ER 13:35
DX: S90.122A Contusion of left lesser toe(s) without damage to nail, initial encounter (principal); X58.XXXA Exposure to other specified factors, initial encounter; Y92.019 Unspecified place in single-family (private) house as the place of occurrence of the external cause
CPT/HCPCS: 99283

== ENCOUNTER 2019-01-18 18:46 | Emergency (ER) | payer OTHER ==
[~2019-01-18] VITALS: Ht 165.1 cm; Wt 81.2 kg
--- OUTSIDE RECORDS SUMMARY | 2019-01-18 18:50 | XMS REPORT | Clinical Summary ---
Author Author YORDAN [facility] Address Unknown Phone Unavailable Care Team Providers Care Creative Writing Teacher Name Role Phone Cj Waters PCP Allergies [...] mellitus, type 2 03/28/2013 Overview: ICD9 DX Evening Sitter COPD (chronic obstructive pulmonary disease) 03/28/2013 Encephalopathy, portal systemic 03/28/2013 Overview: ICD9 DX Evening Sitter Steatosis of liver 03/28/2013 Nausea 03/28/2013 Headache [...] Not on file Results Not on fileafter 01/17/2018 Insurance Payer Benefit Subscriber ID Type Phone Address Plan / Group MEDICAID - MEDICAID [facility]GD [facility] xxxxxxxxx Medicaid CARE COMM STAR Contracted PLAN
[2019-01-18 19:48] LABS: BILIRUBIN,URINE NEGATIVE (NEGATIVE); CLARITY,URINE CLEAR (CLEAR); COLOR,URINE YELLOW (YELLOW); KETONES,URINE NEGATIVE (NEGATIVE); LEUKOCYTE ESTERASE ,URINE NEGATIVE (NEGATIVE); NITRITE,URINE POSITIVE (NEGATIVE); PROTEIN,URINE DIPSTICK NEGATIVE (NEGATIVE); URINE UROBILINOGEN 4 mg/dL (0.2 - 1)
[2019-01-18 20:08] LABS: BACTERIA,URINE MANY /HPF; EPITHELIAL CELLS,URINE RARE /LPF; WBC,URINE (MAN) 0-5 /HPF (0-5)
== END 2019-01-18 21:22 | disposition left against medical advice (07) ==
LOC: ER 18:46
DX: Z53.21 Procedure and treatment not carried out due to patient leaving prior to being seen by health care provider (principal)
CPT/HCPCS: 81001

== ENCOUNTER 2019-07-11 11:48 | Emergency (ER) | payer OTHER ==
[~2019-07-11] VITALS: Ht 165.1 cm; Wt 81.2 kg
[2019-07-11] MEDS ORDERED: IPRATROPIUM BROMIDE 0.02% 2.5 ML NEB NEB STA (12:03)
[2019-07-11] MEDS ORDERED: METHYLPREDNISOLONE SOD SUCC 125 MG/2ML VIAL IV STA (12:03)
[2019-07-11] MEDS ORDERED: ALBUTEROL SULF 0.083% NEB SOLN 3 ML NEB NEB STA (12:03)
--- NOTE | 2019-07-11 13:13 | Diagnostic Imaging Report ---
Chest, 2 views, 07/11/2019. History: Shortness of breath, chest pain. Comparison: 07/22/2018. Findings: The cardiomediastinal silhouette and pulmonary vasculature are within normal limits. Bibasilar linear opacities are present with blunting of the costophrenic sulci, right greater than left. There are no acute osseous or soft tissue abnormalities. Impression: Bibasilar atelectasis with small bilateral pleural effusions, right more than left, but less compared to prior exam. Signed by: Sim Mcadams on 07/11/2019 1:10 PM
[2019-07-11 13:31] LABS: BASOPHILS % 0.8 % (0.0-1.0); EOSINOPHILS # (AUTO) 0.4 (0.0-0.4); HEMATOCRIT 41.8 % (34.2-44.1); HEMOGLOBIN 14.7 g/dL (12.0-16.0); LYMPHOCYTES # (AUTO) 0.8 (1.0-3.2); MEAN CORPUSCULAR HEMOGLOBIN 28.9 pg (28-32); MEAN CORPUSCULAR HGB CONC 35.2 g/dL (31-35); MEAN CORPUSCULAR VOLUME 82.3 fL (81-99); MONOCYTES # (AUTO) 0.3 (0.2-0.8); MONOCYTES % 8.2 % (4.4-11.3); NEUTROPHILS # (AUTO) 2.4 (2.1-6.9); NEUTROPHILS % 60.7 % (38.7-80.0); RED BLOOD COUNT 5.08 x10e6/uL (3.6-5.1); RED CELL DISTRIBUTION WIDTH 14.3 % (11.7-14.4)
[2019-07-11 13:43] LABS: INR 1.21; PLATELET COUNT 41 x10e3/uL (140-360); PROTHROMBIN TIME 16.1 seconds (11.9-14.5)
[2019-07-11 13:44] LABS: PARTIAL THROMBOPLASTIN TIME 30.4 seconds (23.8-35.5)
[2019-07-11 13:53] LABS: ALANINE AMINOTRANSFERASE 24 IU/L (0-55); ALBUMIN 2.9 g/dL (3.5-5.0); ALBUMIN/GLOBULIN RATIO 0.8 (0.8-2.0); ALKALINE PHOSPHATASE 166 IU/L (40-150); ANION GAP 9.6 mmol/L (8-16); BLOOD UREA NITROGEN 5 mg/dL (7-26); BUN/CREATININE RATIO 6 (6-25); CALCIUM 8.7 mg/dL (8.4-10.2); CARBON DIOXIDE 27 mmol/L (22-29); CHLORIDE 102 mmol/L (98-107); CREATINE KINASE 143 IU/L (29-168); CREATININE, SERUM 0.81 mg/dL (0.57-1.11); EST GLOMERULAR FILTRATION RATE > 60 ML/MIN (60-); GLUCOSE 338 mg/dL (74-118); POTASSIUM 3.6 mmol/L (3.5-5.1); SODIUM 135 mmol/L (136-145)
--- NOTE | 2019-07-11 14:00 | NUR ---
Patient requesting pain medication. MD aware.
[2019-07-11 15:01] VITALS: BP 137/84
== END 2019-07-11 15:07 | disposition home or self-care (01) ==
LOC: ER 11:48
DX: R06.02 Shortness of breath (principal); R05 Cough; J45.40 Moderate persistent asthma, uncomplicated; J06.9 Acute upper respiratory infection, unspecified; E11.9 Type 2 diabetes mellitus without complications; K76.9 Liver disease, unspecified
CPT/HCPCS: 36415; 71046; 80053; 82550; 82553; 83880; 84484; 85025; 85610; 85730; 87400; 93005; 94640; 99283; J2930

== ENCOUNTER 2020-01-30 07:45 | Inpatient (IN) | payer OTHER ==
[~2020-01-30] VITALS: Ht 165.1 cm; Wt 81.2 kg
[2020-01-30 08:43] LABS: BASOPHILS % 0.6 % (0.0-1.0); EOSINOPHILS # (AUTO) 0.1 (0.0-0.4); EOSINOPHILS % 3.2 % (0.0-6.0); HEMATOCRIT 39.3 % (34.2-44.1); HEMOGLOBIN 13.4 g/dL (12.0-16.0); LYMPHOCYTES # (AUTO) 0.7 (1.0-3.2); LYMPHOCYTES % 42.6 % (18.0-39.1); MEAN CORPUSCULAR HEMOGLOBIN 27.3 pg (28-32); MEAN CORPUSCULAR HGB CONC 34.1 g/dL (31-35); MONOCYTES # (AUTO) 0.3 (0.2-0.8); MONOCYTES % 16.1 % (4.4-11.3); NEUTROPHILS # (AUTO) 0.6 (2.1-6.9); NEUTROPHILS % 37.5 % (38.7-80.0); RED BLOOD COUNT 4.91 x10e6/uL (3.6-5.1); RED CELL DISTRIBUTION WIDTH 14.7 % (11.7-14.4)
[2020-01-30 08:52] LABS: PLATELET COUNT 29 x10e3/uL (140-360)
[2020-01-30 09:05] LABS: ALANINE AMINOTRANSFERASE 34 IU/L (0-55); ALBUMIN 2.8 g/dL (3.5-5.0); ALBUMIN/GLOBULIN RATIO 0.9 (0.8-2.0); ALKALINE PHOSPHATASE 143 IU/L (40-150); ANION GAP 11.7 mmol/L (8-16); BLOOD UREA NITROGEN 7 mg/dL (7-26); BUN/CREATININE RATIO 9 (6-25); CALCIUM 7.7 mg/dL (8.4-10.2); CARBON DIOXIDE 23 mmol/L (22-29); CHLORIDE 107 mmol/L (98-107); CREATININE, SERUM 0.76 mg/dL (0.57-1.11); EST GLOMERULAR FILTRATION RATE > 60 ML/MIN (60-); GLUCOSE 121 mg/dL (74-118); POTASSIUM 3.7 mmol/L (3.5-5.1); SODIUM 138 mmol/L (136-145)
[2020-01-30 09:12] LABS: INR 1.23; PROTHROMBIN TIME 16.1 seconds (11.9-14.5)
[2020-01-30 09:13] LABS: PARTIAL THROMBOPLASTIN TIME 32.6 seconds (23.8-35.5)
[2020-01-30] MEDS ORDERED: SODIUM CHLORIDE 0.9% 1000ML 1,000 ML IV STA (09:15)
[2020-01-30 09:16] LABS: BAND NEUTROPHILS % (MANUAL) 5 %; EOSINOPHILS % (MANUAL) 3 % (0-7); LYMPHOCYTES % (MANUAL) 37 % (19-48); MONOCYTES % (MANUAL) 12 % (3.4-9.0); NEUTROPHILS % (MANUAL) 43 % (40-74)
[2020-01-30 09:17] LABS: HYPOCHROMASIA SLIGHT; PLATELET ESTIMATE MARKEDLY DECREASED; PLATELET MORPHOLOGY COMMENT NORMAL; POLYCHROMASIA FEW; RBC MORPHOLOGY COMMENT ABNORMAL
[2020-01-30] MEDS ORDERED: SODIUM CHLORIDE 0.9% 50ML 50 ML ONE (09:25)
[2020-01-30] MEDS ORDERED: IOPAMIDOL 370 MG/ML 200 ML INFUS..BTL INJ ONE (09:25)
[2020-01-30 09:37] LABS: CREATINE KINASE MB 2.8 ng/mL (0-5.0)
[2020-01-30] MEDS ORDERED: ALBUTEROL/IPRATROPIUM 3 ML NEB NEB PRN (09:45)
[2020-01-30] MEDS: AZITHROMYCIN 500MG/NS 250 ML 250 ML IV SCH (09:55)
--- NOTE | 2020-01-30 10:24 | Emergency Department Note ---
History of Present Illnes History of Present Illness Chief Complaint: Respiratory History of Present Illness This is a 64 year old female PATIENT IN FROM HOME WITH COMPLAINTS OF COUGH, CONGESTION, AND SHORTNESS OF BREATH X 3 DAYS; STATES WAS SEEN AT URGENT CARE YESTERDAY AND TOLD SHE HAD PNEUMONIA. CXR REPORT SHOWS "LARGE RIGHT PLEURAL EFFUSION WITH COMPRESSIVE ATELECTASIS IN THE RIGHT LUNG BASE". PATIENT SENT FOR CT CHEST AND FURTHER MANAGEMENT. PATIENT ALERT AND ORIENTED, TACHYPNEIC, RATES PAIN 10/10 TO CHEST FROM COUGHING . Historian: Patient Arrival Mode: Car Tailings Dam Pumper Required: No Onset (how long ago): day(s) (3) Radiation: Reports non-radiation Severity: moderate Onset quality: gradual Timing of current episode: intermittent Progression: worsening Chronicity: new Context: Denies recent illness Relieving factors: none Exacerbating factors: none Associated symptoms: Reports denies other symptoms Past Medical/Family History Physician Review I have reviewed the patient's past medical and family history. Any updates have been documented here. Past Medical History Recent Fever: No Clinical Suspicion of Infectio: Yes New/Unexplained Change in Ment: No Past Medical History: Diabetes, Asthma, Liver Disease, Anemia, GERD Other Medical History: anemia sleep apnea LIVER CIRRHOSIS NEUROPATHY Past Surgical History: Cholecysctectomy, Hysterectomy, Hernia Repair Other Surgery: abdominal sx CYST REMOVED BILATERAL HAND Social History Smoking Cessation: Former smoker Counseling Performed: No Alcohol Use: Occasional Any Illegal Drug Use: No TB Exposure/Symptoms: No Physically hurt or threatened: No Family History Family history of heart diseas: No Other Last Tetanus: UNKNOWN Any Pre-Existing Lines (PICC,: No Review of Systems Review of Systems Constitutional: Reports no symptoms EENTM: Reports no symptoms Cardiovascular: Reports no symptoms Respiratory: Reports as per HPI, Reports cough, Reports pain with cough, Reports dyspnea Gastrointestinal: Reports no symptoms Genitourinary: Reports no symptoms Musculoskeletal: Reports no symptoms Integumentary: Reports no symptoms Neurological: Reports no symptoms Psychological: Reports no symptoms Endocrine: Reports no symptoms Hematological/Lymphatic: Reports no symptoms Physical Exam Related Data Allergies: Coded Allergies: acetaminophen (Verified Allergy, Mild, 01/30/20) codeine (Verified Allergy, Mild, 01/30/20) hydrocodone (Verified Allergy, Mild, 01/30/20) meperidine (Verified Allergy, Mild, 01/30/20) naproxen (Verified Allergy, Mild, 01/30/20) NSAIDS (Non-Steroidal Anti-Inflamma (Verified Allergy, Unknown, 01/30/20) glipizide (Verified Allergy, Unknown, 07/22/18) metformin (Verified Allergy, Unknown, 07/22/18) morphine (Verified Adverse Reaction, Mild, NAUSEA, 07/22/18) Triage Vital Signs Vital Signs Date Time Temp Pulse Resp B/P (MAP) Pulse Ox O2 Delivery O2 Flow Rate FiO2 01/30/20 08:11 98.8 93 30 142/68 95 Room Air 01/30/20 08:44 2.0 Vital signs reviewed: Yes Physical Exam CONSTITUTIONAL Constitutional: Present well-developed, Present well-nourished HENT HENT: Present normocephalic, Present atraumatic, Present oropharynx clear/moist, Present nose normal HENT L/R: Present left ext ear normal, Present right ext ear normal EYES Eyes: Reports PERRL, Reports conjunctivae normal NECK Neck: Present ROM normal PULMONARY Pulmonary: Present respiratory distress (TACHYPNIC), Present rhonchi (RIGHT BASE AND WITH DECR BS's) CARDIOVASCULAR Cardiovascular: Present regular rhythm, Present heart sounds normal, Present capillary refill normal, Present normal rate GASTROINTESTINAL Abdominal: Present soft, Present nontender, Present bowel sounds normal GENITOURINARY Genitourinary: Present exam deferred SKIN Skin: Present warm, Present dry MUSCULOSKELETAL Musculoskeletal: Present ROM normal NEUROLOGICAL Neurological: Present alert, Present oriented x 3, Present no gross motor or sensory deficits PSYCHOLOGICAL Psychological: Present mood/affect normal, Present judgement normal Results Laboratory Result Diagram: 01/30/2082901/30/20 0830 Laboratory Laboratory Tests Test 01/30/20 09:30 01/30/20 08:30 White Blood Count 1.55 x10e3/uL (4.8-10.8) Red Blood Count 4.91 x10e6/uL (3.6-5.1) Hemoglobin 13.4 g/dL (12.0-16.0) Hematocrit 39.3 % (34.2-44.1) Mean Corpuscular Volume 80.0 fL (81-99) Mean Corpuscular Hemoglobin 27.3 pg (28-32) Mean Corpuscular Hemoglobin Concent 34.1 g/dL (31-35) Red Cell Distribution Width 14.7 % (11.7-14.4) Platelet Count 29 x10e3/uL (140-360) Neutrophils (%) (Auto) 37.5 % (38.7-80.0) Lymphocytes (%) (Auto) 42.6 % (18.0-39.1) Monocytes (%) (Auto) 16.1 % (4.4-11.3) Eosinophils (%) (Auto) 3.2 % (0.0-6.0) Basophils (%) (Auto) 0.6 % (0.0-1.0) Neutrophils # (Auto) 0.6 (2.1-6.9) Lymphocytes # (Auto) 0.7 (1.0-3.2) Monocytes # (Auto) 0.3 (0.2-0.8) Eosinophils # (Auto) 0.1 (0.0-0.4) Basophils # (Auto) 0.0 (0.0-0.1) Absolute Immature Granulocyte (auto 0 x10e3/uL (0-0.1) Differential Total Cells Counted 100 Neutrophils % (Manual) 43 % (40-74) Band Neutrophils % 5 % Lymphocytes % (Manual) 37 % (19-48) Monocytes % (Manual) 12 % (3.4-9.0) Eosinophils % (Manual) 3 % (0-7) Platelet Estimate Markedly decreased Platelet Morphology Comment Normal Polychromasia Few Hypochromasia Slight Red Cell Morphology Comment Abnormal Prothrombin Time 16.1 seconds (11.9-14.5) Prothromb Time International Ratio 1.23 Activated Partial Thromboplast Time 32.6 seconds (23.8-35.5) Sodium Level 138 mmol/L (136-145) Potassium Level 3.7 mmol/L (3.5-5.1) Chloride Level 107 mmol/L (98-107) Carbon Dioxide Level 23 mmol/L (22-29) Anion Gap 11.7 mmol/L (8-16) Blood Urea Nitrogen 7 mg/dL (7-26) Creatinine 0.76 mg/dL (0.57-1.11) Estimat Glomerular Filtration Rate > 60 ML/MIN (60-) BUN/Creatinine Ratio 9 (6-25) Glucose Level 121 mg/dL (74-118) Calcium Level 7.7 mg/dL (8.4-10.2) Total Bilirubin 3.7 mg/dL (0.2-1.2) Aspartate Amino Transf (AST/SGOT) 74 IU/L (5-34) Alanine Aminotransferase (ALT/SGPT) 34 IU/L (0-55) Alkaline Phosphatase 143 IU/L (40-150) Creatine Kinase 373 IU/L (29-168) Creatine Kinase MB 2.80 ng/mL (0-5.0) Troponin I 0.095 ng/mL (0-0.300) B-Type Natriuretic Peptide 49.8 pg/mL (0-100) Total Protein 5.9 g/dL (6.5-8.1) Albumin 2.8 g/dL (3.5-5.0) Globulin 3.1 g/dL (2.3-3.5) Albumin/Globulin Ratio 0.9 (0.8-2.0) Lab results reviewed: Yes Imaging Imaging results reviewed: Yes Critical Care Time Total Critical Care Time (min): 30 Critcal care necessary due to: other (WBC 1.5, PLT 29) Critcal care time spent by me: discussion w primary provider, order/perform tx or interventions, order/review laboratory studies, order/review radiographic studies, pulse oximetry, re-evaluation of patient condition Assessment & Plan Medical Decision Making MDM PRESENTS WITH COUCH, SOB X 3 DAYS, XRAY OUTSIDE SHOWED PLEURAL EFFUSION ON RIGHT - CHECK CBC, CHEM, PANCX'S, CT CHEST WITH, ECG CARDIACS, LACTIC - R/O PNEUMONIA, LUNG MASS, EFFUSION, ASTHMA EXAC, SEPSIS, RENAL INSUFF, STEMI/NSTEMI Reassessment Reassessment ADMIT TO DR Filiberto DEAL - HE WILL F/U CT CHEST. I GAVE PELON Assessment & Plan Final Impression: (1) Pneumonia (2) COPD (chronic obstructive pulmonary disease) (3) Thrombocytopenia (4) Pleural effusion (5) Leukopenia (6) Cirrhosis Depart Disposition: ADMITTED Last Vital Signs Date Time Temp Pulse Resp B/P (MAP) Pulse Ox O2 Delivery O2 Flow Rate FiO2 01/30/20 08:44 90 18 143/79 100 Nasal Cannula 2.0 01/30/20 08:11 98.8 Home Meds Reported Medications Insulin Glargine (LANTUS 3ML PEN) 100 Units/1 Ml Inj, 8 SC BIDWM 09/09/17 Rifaximin (XIFAXAN) 550 Mg Tablet, 1 TAB PO BID 09/09/17 Albuterol Sulfate (VENTOLIN HFA) 18 Gm Hfa.aer.ad, 90 MCG INH PRN 09/09/17 Ursodiol (URSODIOL) 300 Mg Capsule, 1 CAP PO TID 09/09/17 Tramadol Hcl* (ULTRAM 50MG*) 50 Mg Tab, 1-2 TAB PO Q6H, TAB 09/09/17 Methocarbamol (ROBAXIN-750) 750 Mg Tablet, 500 MG PO HS 09/09/17 Methimazole (METHIMAZOLE) 10 Mg Tablet, 2 TAB PO DAILY 09/09/17 Lisinopril (LISINOPRIL) 10 Mg Tablet, 20 MG PO HS, #30 TAB 09/09/17 Lactulose (LACTULOSE) 20 Gm/30 Ml Solution, 15 ML PO DAILY, EACH 09/09/17 Fe Fumarate/Fa/Mv, Min Comb#15 (HEMOCYTE PLUS CAPSULE) 1 Each Capsule, 1 CAP PO DAILY 09/09/17 Albuterol Sulfate (ALBUTEROL SULFATE) 0.63 Mg/3 Ml Vial.neb, 1 DOSE IH Q4HR 09/09/17 Ondansetron (ZOFRAN ODT) 4 Mg Tab.rapdis, 4 MG PO BID PRN for NAUSEA AND VOMITING, TAB 11/18/16 Furosemide (LASIX) 40 Mg Tablet, 40 MG PO BID, #30 TAB 11/18/16 Spironolactone (ALDACTONE) 25 Mg Tablet, 50 MG PO DAILY 08/05/16 Medications in the ED Sodium Chloride 1,000 ml @ 0 mls/hr Q0M STAT IV ; Start 01/30/20 at 09:15; Sto p 01/30/20 at 09:22; Status DC Piperacillin Sod/ Tazobactam Sod 50 ml @ 50 mls/hr 0500,1100,1700,2300 IV ; Start 01/30/20 at 11:00; Stop 02/06/20 at 10:59 Azithromycin 250 ml @ 200 mls/hr Q24H IV ; Start 01/30/20 at 09:15; Stop 02/06/20 at 09:14 Sodium Chloride 50 ml @ ud STK-MED ONCE .ROUTE ; Start 01/30/20 at 09:25; Stop 01/30/20 at 09:19; Status DC Iopamidol 74,000 mg STK-MED ONCE INJ ; Start 01/30/20 at 09:25; Stop 01/30/20 at 09:19; Status DC Albuterol/ Ipratropium 3 ml RQ4H PRN NEB SHORTNESS OF BREATH; Start 01/30/20 at 09:45; Stop 02/29/20 at 09:44 CHUCK WELLS MD Jan 30, 2020 10:24
[2020-01-30] MEDS: PIPER-TAZ 3.375 GM 50 ML IV SCH ×3 (11:02→23:39)
--- NOTE | 2020-01-30 11:19 | Diagnostic Imaging Report ---
EXAM: CT Chest WITH intravenous contrast 01/30/2020 10:10 AM INDICATION: ^Y ^RIGHT PLEURAL EFFUSION ^[id number] ^1010 ^N. COMPARISON: Chest x-ray dated 07/11/2019 TECHNIQUE: Chest was scanned utilizing a multidetector helical scanner from the lung apex through the level of the adrenal glands following administration of IV contrast. Coronal and sagittal reformations were obtained. Routine protocol was performed. IV CONTRAST: 100mL Isovue 370 RADIATION DOSE: Total DLP: 453 mGy*cm. Dose modulation, iterative reconstruction, and/or weight based adjustment of the mA/kV was utilized to reduce the radiation dose to as low as reasonably achievable. COMPLICATIONS: None FINDINGS: LINES/ TUBES: None. LUNGS, PLEURA AND AIRWAYS: There is a large right effusion. There is trace left effusion. There is atelectasis of the right lower lobe and portions of the right middle lobe. There are a few pleural-based opacities within the medial anterior right upper lobe (axial lung window, image 32). There are a few perihilar similar hazy opacities within the left lung. Negative for focal lobar consolidation. Negative for pneumothorax. HEART AND MEDIASTINUM: The thyroid gland is normal. No mediastinal, hilar or axillary lymphadenopathy. Nonenlarged mediastinal lymph nodes are noted. The heart is normal in size. There is no pericardial effusion. Thoracic aorta is unremarkable. UPPER ABDOMEN: Trace perihepatic ascites is noted. Cirrhotic liver morphology is noted with nodular contours. Splenomegaly is noted. Esophageal varices are noted. BONES: Negative for acute osseous abnormality. Osseous structures are demineralized. Moderate multilevel degenerative changes of the midthoracic spine is noted. Lower thoracic vertebral hemangioma is noted. No suspicious lytic or blastic lesion. SOFT TISSUES: Unremarkable. IMPRESSION: 1. Large right and trace left pleural effusions with overlying atelectasis. A few areas of pleural-based nodular opacities within the anterior right upper lobe and left perihilar regions could relate to superimposed bronchitis versus early edema. No focal lobar consolidation is noted. 2. Cirrhotic liver morphology with sequela of portal hypertension including small volume ascites and splenomegaly. Signed by: Levon Carrasquillo MD on 01/30/2020 11:15 AM
[2020-01-30 14:55] LABS: BILIRUBIN,URINE SMALL (NEGATIVE); CLARITY,URINE SL CLOUDY (CLEAR); COLOR,URINE BROWN (YELLOW); KETONES,URINE NEGATIVE (NEGATIVE); LEUKOCYTE ESTERASE ,URINE NEGATIVE (NEGATIVE); NITRITE,URINE NEGATIVE (NEGATIVE); PROTEIN,URINE DIPSTICK NEGATIVE (NEGATIVE); URINE UROBILINOGEN 8 mg/dL (0.2 - 1)
--- NOTE | 2020-01-30 15:00 | NUR ---
received patient from ER via wheelchair. pt is alert, no s/s of distress, nasal cannula applied with 2L oxygen. pt c/o of intermittent pain in chest while coughing. initial assessment completed.
[2020-01-30 15:11] LABS: AMORPHOUS SEDIMENT,URINE MODERATE (FEW); BACTERIA,URINE MODERATE /HPF; EPITHELIAL CELLS,URINE FEW /LPF
[2020-01-30 15:43] VITALS: BP 137/68
[2020-01-30] MEDS ORDERED: ONDANSETRON HCL 4 MG ORAL DISINTEGRATING TAB PO PRN (16:15)
[2020-01-30] MEDS ORDERED: ALBUTEROL SULFATE HFA 8GM INHALATION AEROSOL INH PRN (16:15)
[2020-01-30] MEDS ORDERED: ALBUTEROL SULF 0.083% NEB SOLN 3 ML NEB NEB PRN (16:15)
[2020-01-30] MEDS ORDERED: FUROSEMIDE 40 MG TAB PO SCH (17:00)
[2020-01-30] MEDS ORDERED: SODIUM CHLORIDE 0.9% 250ML 250 ML ONE (17:12)
[2020-01-30 17:22] LABS: CREATINE KINASE MB 3.6 ng/mL (0-5.0)
--- NOTE | 2020-01-30 17:42 | NUR ---
patient c/o pain in chest secondary to coughing. Called Dr Key for new orders and left voicemail, waiting for call back
--- NOTE | 2020-01-30 19:15 | NUR ---
BEDSIDE SHIFT REPORT RECEIVED. PATIENT IS RESTING IN BED, AAOX3. RESP EVEN AND UNLABORED. TELE IN PLACE. EDUCATED PT ABOUT FALL PRECAUTIONS. PT VERBALIZED UNDERSTANDING. BED IS LOW AND LOCKED. SIDE RAILS X2. CALL LIGHT WITH IN EASY REACH. BED ALARM IS ON. ALL SAFETY MEASURES IN PLACE. PT DENIES NEEDS AT THIS TIME.
[2020-01-30] MEDS ORDERED: ACETAMINOPHEN 325 MG TAB PO PRN (20:00)
[2020-01-30] MEDS ORDERED: GUAIFENESIN/CODEINE 10 ML CUP PO PRN (20:00)
[2020-01-30] MEDS: URSODIOL 300 MG CAP PO SCH (20:20)
--- NOTE | 2020-01-30 20:30 | NUR ---
SPOKE TO DR. DEAL REGARDING PATIENT C/O COUGHING. NEW ORDER RECEIVED
[2020-01-30 20:38] VITALS: BP 141/73
[2020-01-30] MEDS: INSULIN GLARGINE 100 UNITS/ML VIAL SQ SCH (21:01)
[2020-01-30 22:52] VITALS: BP 141/73
[2020-01-31] VITALS (9 sets, daily range): BP systolic 102–165; BP diastolic 60–75
[2020-01-31 01:37] LABS: CREATINE KINASE MB 1.9 ng/mL (0-5.0)
[2020-01-31] MEDS: ALBUTEROL/IPRATROPIUM 3 ML NEB NEB SCH ×4 (02:19→19:00)
--- NOTE | 2020-01-31 02:30 | NUR ---
RECEIVED RESULT FROM LAB THAT PATIENT IS POSITIVE FOR COVID. NOTIFIED CHARGE NURSE AND SAMPLE PROCESSOR
[2020-01-31] MEDS: PIPER-TAZ 3.375 GM 50 ML IV SCH (06:02)
[2020-01-31] MEDS ORDERED: SPIRONOLACTONE 25 MG TAB PO SCH (09:00)
[2020-01-31] MEDS: FUROSEMIDE INJ 10 MG/ML 4 ML VIAL IV SCH ×2 (09:32→13:12)
[2020-01-31] MEDS: URSODIOL 300 MG CAP PO SCH ×3 (09:32→20:46)
[2020-01-31] MEDS: INSULIN GLARGINE 100 UNITS/ML VIAL SQ SCH ×2 (09:33→21:00)
[2020-01-31] MEDS: AZITHROMYCIN 500MG/NS 250 ML 250 ML IV SCH (09:33)
[2020-01-31] MEDS: CEFTRIAXONE SOD 1 GM/NS 50 ML 50 ML IV SCH (13:12)
--- NOTE | 2020-01-31 13:18 | History and Physical ---
The patient admitted through the emergency room. The patient was seen in the emergency room. CHIEF COMPLAINT: Increasing shortness of breath, coughing, leukopenia, and pleural effusion. HISTORY OF PRESENT ILLNESS: The patient is a 64-year-old female with baseline BALDERAS, associated with advanced liver cirrhosis with recurrent bilateral pleural effusion, more so on the right than left secondary to abdominal ascites. The patient on diuretic at home. For the past three days or so, the patient having increased shortness of breath, cough, and congestion. The patient went to an urgent care and was quoted to have pneumonia, was given antibiotics, but when she went home, she did not improve . Therefore, the patient came into the emergency room for evaluation. CT scan of the chest was obtained and the patient found to have more so in the bilateral upper lobe pneumonia with left perihilar region, areas of superimposed possible bronchitis versus edema. She does have liver cirrhosis, morphology noted with ascites and splenomegaly, but more importantly, the patient had large right and trace left pleural effusion with overlying . Because of her persistent symptoms, screen for COVID-19 and viral infection was obtained, the patient is admitted to the hospital for further evaluation and treatment. Her WBC was 1.5 and her platelet was 29. Hemoglobin and hematocrit stable at 13.4 and 39.3. The patient does have advanced liver cirrhosis. Renal function is stable. BUN and creatinine are 7 and 0.7. Blood sugar is 121. The patient is otherwise stable at this time. Urinalysis showed brown color with moderate bacteria. The patient admitted for treatment from the emergency room. PAST MEDICAL HISTORY: 1. BALDERAS with advanced liver cirrhosis, associated with leukopenia and thrombocytopenia. 2. Morbid obesity. 3. Type 2 diabetes on insulin therapy. 4. History of pancreatitis in the past. 5. COPD with chronic asthma. 6. Chronic obstructive sleep apnea. 7. History of GERD, . 8. Osteoarthritis. 9. Abdominal ascites. 10. Portal hypertension. PAST SURGICAL HISTORY: 1. The patient had cholecystectomy. 2. Abdominal hysterectomy. 3. Appendectomy. 4. Partial small bowel resection with end-to-end anastomosis. SOCIAL HISTORY: The patient does not smoke or use alcohol. No recreational drugs. ALLERGIES: 1. MEPERIDINE. 2. METFORMIN. 3. NAPROXEN. 4. ACETAMINOPHEN. 5. HYDROCODONE. 6. CODEINE. 7. MORPHINE. 8. GLIPIZIDE. 9. NSAID. PHYSICAL EXAMINATION: VITAL SIGNS: Temperature is 98.8, blood pressure 143/58, pulse rate 93, respirations 30. GENERAL: The patient is not in acute distress. She is awake. She is anxious. HEENT: Normocephalic and atraumatic, anicteric. NECK: Supple grossly. PULMONARY: Diminished breath sounds bilaterally with right compared to left, but . CARDIOVASCULAR: S1, S2. Regular rate and rhythm. ABDOMEN: Positive abdominal ascites, obese. EXTREMITIES: No gross cyanosis or edema. NEUROLOGIC: The patient . Moving all extremities. LABORATORY DATA: Chemistry: Sodium 138, potassium 3.7, chloride 107, bicarb 23, BUN 7, creatinine 0.7, glucose 121, total bilirubin is 3.7, AST 74, ALT 34. WBC is 1.5, hemoglobin 13.4, hematocrit 39 platelets 29,000. SEROLOGIES: COVID-19 PCR pending. ASSESSMENT AND PLAN: 1. COVID-19 person under investigation. 2. Bilateral lung pneumonia. 3. Left pleural effusion much greater. 4. Baseline mass with liver cirrhosis, abdominal ascites. 5. Urinary tract infection. 6. Acute hypoxia, could be secondary to viral infection versus bacterial infection. 7. Multiple chronic baseline problem, hypertension, diabetes with insulin required. PLAN: Treatment for COVID-19 assumption. Antibiotics. May need right pleural effusion. Home medication resumed. Insulin sliding scale coverage. Diet. Monitor WBC and platelets. Thoracentesis, the patient may need platelets prior to the procedures. In the meantime, continue with supportive measures. We will consult Pulmonary and Infectious Disease in this complex patient management. MD RACHEL Vieira/MODL /[id number]
[2020-01-31] MEDS ORDERED: REMDESIVIR 200MG/NS 100ML 200 MG in SODIUM CHLORIDE 0.9% 100 ML 100 ML IV ONE (14:00)
[2020-01-31 16:58] LABS: BASOPHILS % 0.8 % (0.0-1.0); EOSINOPHILS % 2.3 % (0.0-6.0); HEMATOCRIT 41.4 % (34.2-44.1); HEMOGLOBIN 12.8 g/dL (12.0-16.0); LYMPHOCYTES # (AUTO) 0.4 (1.0-3.2); LYMPHOCYTES % 33.6 % (18.0-39.1); MEAN CORPUSCULAR HEMOGLOBIN 27.6 pg (28-32); MEAN CORPUSCULAR HGB CONC 30.9 g/dL (31-35); MEAN CORPUSCULAR VOLUME 89.2 fL (81-99); MONOCYTES # (AUTO) 0.2 (0.2-0.8); MONOCYTES % 16.4 % (4.4-11.3); NEUTROPHILS # (AUTO) 0.6 (2.1-6.9); NEUTROPHILS % 46.9 % (38.7-80.0); RED BLOOD COUNT 4.64 x10e6/uL (3.6-5.1); RED CELL DISTRIBUTION WIDTH 15.1 % (11.7-14.4)
[2020-01-31 17:04] LABS: PLATELET COUNT 29 x10e3/uL (140-360)
[2020-01-31 17:12] LABS: ALANINE AMINOTRANSFERASE 31 IU/L (0-55); ALBUMIN 2.4 g/dL (3.5-5.0); ALBUMIN/GLOBULIN RATIO 0.8 (0.8-2.0); ALKALINE PHOSPHATASE 139 IU/L (40-150); ANION GAP 11.6 mmol/L (8-16); BLOOD UREA NITROGEN 8 mg/dL (7-26); BUN/CREATININE RATIO 11 (6-25); CALCIUM 7.4 mg/dL (8.4-10.2); CARBON DIOXIDE 19 mmol/L (22-29); CHLORIDE 107 mmol/L (98-107); CREATININE, SERUM 0.71 mg/dL (0.57-1.11); EST GLOMERULAR FILTRATION RATE > 60 ML/MIN (60-); GLUCOSE 179 mg/dL (74-118); POTASSIUM 3.6 mmol/L (3.5-5.1); SODIUM 134 mmol/L (136-145)
[2020-01-31] MEDS: SPIRONOLACTONE 25 MG TAB PO SCH (17:20)
[2020-01-31] MEDS: METHOCARBAMOL 500 MG TAB PO PRN (17:34)
[2020-01-31 17:45] LABS: LYMPHOCYTES % (MANUAL) 37 % (19-48); MONOCYTES % (MANUAL) 13 % (3.4-9.0); NEUTROPHILS % (MANUAL) 50 % (40-74); PLATELET ESTIMATE MARKEDLY DECREASED; PLATELET MORPHOLOGY COMMENT NORMAL; RBC MORPHOLOGY COMMENT NORMAL
--- NOTE | 2020-01-31 18:20 | Consultation ---
DATE OF CONSULTATION: Pulmonary Consultation. The patient of Dr. Key, Dr. Waters, and Dr. Gee. 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 She was found to be COVID positive by verbal report. She was also found to have a right pleural effusion on chest x-ray, which has been recurrent. PAST MEDICAL HISTORY: She has a history of sleep apnea. PAST SURGICAL HISTORY: She has had cholecystectomy and hysterectomy, hernia repair, small-bowel resection, hand surgery for cyst. SOCIAL HISTORY: She is a nonsmoker. No alcohol use. FAMILY HISTORY: Lives with her family in an apartment. ALLERGIES: MULTIPLE ALLERGIES REPORT INCLUDING TYLENOL, CODEINE, VICODIN, MEPERIDINE, NAPROSYN, GLIPIZIDE, METFORMIN, AND MORPHINE. MEDICATIONS: According to records her medications at home have included: 1. Albuterol. 2. Lasix. 3. Lantus insulin. 4. Meloxicam. 5. Methimazole. 6. Aldactone. 7. Tramadol. 8. Ursodiol. 9. Zofran. 10. Lisinopril. 11. Lactulose. It is uncertain whether she has a history of biliary cirrhosis. PHYSICAL EXAMINATION: GENERAL: She is a well-developed white female, in no acute distress, comfortable on room air. VITAL SIGNS: Temperature 98.9, pulse 80, respirations 16, blood pressure 149/60. HEAD: Normocephalic and atraumatic. NECK: Trachea midline. LUNGS: Diminished breath sounds right chest. HEART: Regular rhythm. ABDOMEN: Nontender. EXTREMITIES: Nonedematous. ASSESSMENT AND PLAN: Consider low-dose Decadron and assess need for supplemental oxygen. In view of her diabetes, we will begin low-dose Decadron and assess supplemental oxygen needs. Continue empiric antibiotics. We will discontinue Zosyn in view of low platelet count, change to Rocephin. Continue Actigall, increase Aldactone. Check thyroid function. Resume home BiPAP at home. Thank you for this kind referral. MD RAKAN López/MODL /[id number]
--- NOTE | 2020-01-31 18:39 | NUR ---
received report from JOSLYN Strauss. pt arrived to room 299. pt awake, alert, oriented, in stable condition.
--- NOTE | 2020-01-31 19:05 | Consultation ---
DATE OF CONSULTATION: HISTORY OF PRESENT ILLNESS: The patient is seen and evaluated. Available labs and notes reviewed. This is a pleasant 64-year-old female with complicated past medical history including nonalcoholic hepatic cirrhosis with history of asthma and asthma attacks. Started having some cough and shortness of breath, which she thought it was her asthma, being exacerbated. The patient reported to the hospital and now the patient tested positive for COVID-19 through the PCR. Infectious Disease consulted for positive COVID-19 test on PCR. PAST MEDICAL HISTORY: Includes: 1. Nonalcoholic hepatic cirrhosis. 2. Obesity. 3. Diabetes type 2. 4. History of pancreatitis in the past. 5. COPD. 6. Irritable bowel syndrome. 7. Obstructive sleep apnea. 8. Esophagitis in the past. PAST SURGICAL HISTORY: Cholecystectomy. Hysterectomy. Appendectomy. Small bowel surgery with end-to-end anastomosis. ALLERGIES: THE PATIENT HAS MULTIPLE ALLERGIES INCLUDING MEPERIDINE, METFORMIN, NAPROXEN, ACETAMINOPHEN, HYDROCODONE, CODEINE, MORPHINE, GLIPIZIDE, AND NSAIDS. PHYSICAL EXAMINATION: VITAL SIGNS: Temperature is 97.8, pulse 86, respirations 18, and blood pressure 138/63. Recheck vital signs includes temperature 98.9, pulse 98, respirations 16, blood pressure 132/64. GENERAL: Awake and alert, pleasant, no acute distress. CV: S1-S2. CHEST: Equal expansion, rales bilateral. ABDOMEN: Soft. Positive bowel sounds. HEENT: Moist. No pallor. No JVD. EXTREMITIES: 1+ edema. MEDICATIONS: Medication list reviewed. From Infectious Disease point of view, the patient is on Zithromax, Rocephin, and dexamethasone. LABORATORY STUDIES: White count a 1.55, platelets 29, hemoglobin 13.4. Sodium 138, potassium 3.7, creatinine level of 0.76, AST 74, and ALT 34. MICROBIOLOGY: Blood culture and urine culture 01/29, negative so far. IMAGING: CT of the chest showed large right and trace left pleural effusion with overlying atelectasis, a few areas of pleural-based nodular opacities within the anterior right upper lobe and left perihilar region, could relate to superimposed bronchitis versus early edema with no focal lobar consolidation that was noted. The patient also was found to have hepatic cirrhosis, nephrology with sequelae of portal hypertension including small volume ascites and splenomegaly. ASSESSMENT AND PLAN: COVID-19 infection, the patient is currently on Zithromax, Rocephin, and dexamethasone. Renal function as above, the patient has a known alcoholic associated hepatic cirrhosis, however, AST, ALT, reviewed and discussed with Dr. Salazar, who will start patient on remdesivir. I have discussed with the patient in regard to remdesivir and reviewed investigational antiviral medication for COVID-19 remdesivir with the patient. Remdesivir is an unauthorized drug that is authorized by FDA for emergency use, authorization EUA. Medication fact sheet was provided to the patient. Alternative therapies and questions were addressed. The patient understands that she may decide not receive this medication or stop therapy at any time today. The patient agreed to receive this therapy, if it is available. Other medical conditions including diabetes, obesity, debility, sleep apnea, asthma per others. This case was discussed with Dr. Salazar, Pulmonary. Thank you for this consult. Dictated by Anirudh Baig PA-C (Al) Noni Salazar MD /MODL /[id number]
--- NOTE | 2020-01-31 19:31 | NUR ---
Called Dr. Key at patient's request. Patient requested prn dilaudid for pain, Dr. Key was informed. No new orders at this time.
[2020-01-31] MEDS: BENZONATATE 100 MG CAP PO PRN (20:46)
[2020-02-01] MEDS: ALBUTEROL/IPRATROPIUM 3 ML NEB NEB SCH ×4 (01:00→19:00)
--- NOTE | 2020-02-01 01:45 | NUR ---
PT RESTING COMFORTABLY IN BED NO SIGNS OF DISTRESS NO COMPLAINTS AT THIS TIME
--- NOTE | 2020-02-01 06:59 | NUR ---
BEDSIDE SHIFT REPORT RECEIVED FROM PM NURSE. PT AWAKE, ALERT, ORIENTED X3, NO S/S DISTRESS. NO COMPLAINTS AT THIS TIME. ALL SAFETY MEASURES IN PLACE. IN STABLE CONDITION.
[2020-02-01 07:15] LABS: BASOPHILS % 0.7 % (0.0-1.0); EOSINOPHILS % 1.4 % (0.0-6.0); HEMOGLOBIN 10.6 g/dL (12.0-16.0); LYMPHOCYTES # (AUTO) 0.6 (1.0-3.2); LYMPHOCYTES % 40.1 % (18.0-39.1); MEAN CORPUSCULAR HEMOGLOBIN 27.2 pg (28-32); MEAN CORPUSCULAR HGB CONC 34.2 g/dL (31-35); MEAN CORPUSCULAR VOLUME 79.7 fL (81-99); MONOCYTES # (AUTO) 0.3 (0.2-0.8); MONOCYTES % 17.6 % (4.4-11.3); NEUTROPHILS # (AUTO) 0.6 (2.1-6.9); NEUTROPHILS % 39.5 % (38.7-80.0); RED BLOOD COUNT 3.89 x10e6/uL (3.6-5.1); RED CELL DISTRIBUTION WIDTH 14.9 % (11.7-14.4)
[2020-02-01 07:21] LABS: INR 1.39; PROTHROMBIN TIME 17.8 seconds (11.9-14.5)
[2020-02-01 07:24] LABS: PLATELET COUNT 26 x10e3/uL (140-360)
[2020-02-01 07:27] LABS: ANION GAP 10.1 mmol/L (8-16); BLOOD UREA NITROGEN 8 mg/dL (7-26); BUN/CREATININE RATIO 12 (6-25); CALCIUM 7.5 mg/dL (8.4-10.2); CARBON DIOXIDE 23 mmol/L (22-29); CHLORIDE 104 mmol/L (98-107); CREATININE, SERUM 0.67 mg/dL (0.57-1.11); EST GLOMERULAR FILTRATION RATE > 60 ML/MIN (60-); GLUCOSE 121 mg/dL (74-118); POTASSIUM 3.1 mmol/L (3.5-5.1); SODIUM 134 mmol/L (136-145)
[2020-02-01 08:06] VITALS: BP 121/60
[2020-02-01 08:12] VITALS: BP 126/56
[2020-02-01 08:46] LABS: BAND NEUTROPHILS % (MANUAL) 3 %; LYMPHOCYTES % (MANUAL) 28 % (19-48); MONOCYTES % (MANUAL) 20 % (3.4-9.0); NEUTROPHILS % (MANUAL) 47 % (40-74)
[2020-02-01 08:47] LABS: POLYCHROMASIA FEW; RBC MORPHOLOGY COMMENT ABNORMAL
[2020-02-01 08:48] LABS: PLATELET ESTIMATE MARKEDLY DECREASED; PLATELET MORPHOLOGY COMMENT NORMAL
[2020-02-01] MEDS ORDERED: DEXAMETHASONE 4 MG TAB PO SCH (09:00)
[2020-02-01] MEDS: FUROSEMIDE INJ 10 MG/ML 4 ML VIAL IV SCH ×2 (09:02→12:31)
[2020-02-01] MEDS: SPIRONOLACTONE 25 MG TAB PO SCH ×2 (09:03→16:09)
[2020-02-01] MEDS: URSODIOL 300 MG CAP PO SCH ×3 (09:03→21:00)
[2020-02-01] MEDS: AZITHROMYCIN 500MG/NS 250 ML 250 ML IV SCH (09:05)
[2020-02-01] MEDS: INSULIN GLARGINE 100 UNITS/ML VIAL SQ SCH ×2 (09:14→21:00)
[2020-02-01] MEDS: POTASSIUM CHLORIDE 10MEQ EA PO SCH ×2 (09:56→16:09)
--- NOTE | 2020-02-01 11:15 | NUR ---
spoke with Dr. Key concerning white blood cell count. Dr. Key states WBC is d/t cirrhosis. no new orders.
[2020-02-01 12:28] LABS: ALBUMIN 2.3 g/dL (3.5-5.0); BILIRUBIN,DIRECT 1.5 mg/dL (0.0-0.5)
[2020-02-01] MEDS: CEFTRIAXONE SOD 1 GM/NS 50 ML 50 ML IV SCH (12:31)
[2020-02-01 12:36] VITALS: BP 132/55
--- NOTE | 2020-02-01 13:23 | Progress Note ---
DATE: SUBJECTIVE: The patient was currently alert and oriented. She has no complaints. This patient, who has history of hepatic cirrhosis, diabetes mellitus, COPD, comes in with shortness of breath and coughing. Her COVID-19 was positive. She is currently doing better. Her white count is 1.42, hemoglobin of 10, and platelets 26. REVIEW OF SYSTEMS: At the present time, her review of systems otherwise all negative. PHYSICAL EXAMINATION: GENERAL: She is currently alert and oriented. VITAL SIGNS: Stable, currently afebrile. HEENT: She is not icteric. NECK: Supple. CHEST: Clear. HEART: S1 and S2. ABDOMEN: Soft. Bowel sounds present. EXTREMITIES: No edema. SKIN: No rash. IMPRESSION: Respiratory failure, better, COVID-19, to finish 10 days of dexamethasone, 5 days of remdesivir, 5 days of Rocephin, 3 days of azithromycin. Liver cirrhosis, pancytopenia, thigh-high elastic stocking for deep venous thrombosis prophylaxis. We will follow. MD CHERRIE Ramirez/MODJelly /[id number]
[2020-02-01] MEDS: REMDESIVIR 100MG/NS 100ML 100 MG in SODIUM CHLORIDE 0.9% 100 ML 100 ML IV SCH (13:29)
[2020-02-01 16:00] VITALS: BP 127/60
--- OUTSIDE RECORDS SUMMARY | 2020-02-01 16:10 | XMS REPORT | Clinical Summary ---
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 Active magnesium 30 mg tablet Take 30 mg by 0 mouth 2 (two) times daily. Active Problems Problem Noted Date Screening for malignant neoplasm 07/07/2013 Pleural effusion 03/28/2013 Ascites 03/28/2013 Hernia, incisional 03/28/2013 Cirrhosis 03/28/2013 Obesity 03/28/2013 Diabetes mellitus, type 2 03/28/2013 Overview: ICD9 DX Director Of Infection Prevention COPD (chronic obstructive pulmonary disease) 013 Encephalopathy, portal systemic 03/28/2013 Overview: ICD9 DX Director Of Infection Prevention Steatosis of liver 03/28/2013 Nausea 03/28/2013 Headache [...] Not on file Results Not on fileafter 01/29/2019 Insurance Payer Benefit Subscriber ID Type Phone Address Plan / Group MEDICAID - MEDICAID [facility] xxxxxxxxx Medica id [employer] Contracted PLAN [id number]
--- OUTSIDE RECORDS SUMMARY | 2020-02-01 16:11 | XMS REPORT | Continuity of Care Document ---
Author Author [facility] t Organization [facility] Address 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 Problems Condition Name Condition Details Condition Category Status Onset Date Resolution Date Last Treatment Date Treating Clinician Comments Source Screening for malignant neoplasm Screening for malignant neoplas m Disease Active 2013-07-07 00:00:00 [facility] Pleural effusion Pleural effusion Disease Active 2013-03-28 00:00:00 [facility] Ascites Ascites Disease Active 2013-03-28 00:00:00 [facility] Hernia, incisional Hernia, incisional Disease Active 2013-03-28 00:00:0 0 [facility] Cirrhosis Cirrhosis Disease Active 2013-03-28 00:00:00 [facility] Obesity Obesity Disease Active 2013-03-28 00:00:00 [facility] Diabetes mellitus, type 2 Diabetes mellitus, type 2 Disease Ac tive 2013-03-28 00:00:00 Overview: 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 [facility] COPD (chronic obstructive pulmonary disease) COPD (chr onic obstructive pulmonary disease) Disease Active 2013-03-28 00:00:00 [facility] Encephalopathy, portal systemic Encephalopathy, portal systemic Dis ease Active 2013-03-28 00:00:00 Overview: ICD9 DX Rep lacer [facility] Steatosis of liver Steatosis of liver Disease Active 2013-03-28 00:00:0 0 [facility] Nausea Nausea Disease Active 2013-03-28 00:00:00 [facility] Headache Headache Disease Active 2013-03-28 00:00:00 [facility] SOB (shortness of breath) SOB (shortness of breath) Disease Ac tive 2013-03-28 00:00:00 [facility] Myalgia Myalgia Disease Active 2013-03-28 00:00:00 [facility] Fatigue Fatigue Disease Active 2013-03-28 00:00:00 [facility] Anemia Anemia Disease Active 2013-03-28 00:00:00 [facility] Bleeding disorder Bleeding disorder Disease Active 2013-03-28 00:00:00 [facility] Bleeding nose Bleeding nose Disease Active 2013-03-28 00:00:00 [facility] Confusion Confusion Problem Active [facility] Pancreatitis Pancreatitis Problem Active [facility] Partial small bowel obstruction Partial small bowel obstruction Pro blem Active [facility] Urinary tract infection UTI (urinary tract infection) Problem Active [facility] Allergies, Adverse Reactions, Alerts Allergy Name Allergy Type Status Severity Reaction(s) Onset Date Inacti ve Date Treating Clinician Comments Source NSAIDS (Non-Steroidal Anti-Inflamma Allergy to Substance Active 2018-07-22 00:00:00 [facility] Glipizide Allergy to Substance Active 2018-07-22 00:00:00 [facility] Morphine Propensity to adverse reactions Active Mild NAUSEA 2018-07-22 00:00:00 [facility] Codeine Allergy to Substance Active Mild 2018-07-22 00:00:00 [facility] Hydrocodone Allergy to Substance Active Mild 2018-07-22 00:00:00 [facility] Acetaminophen Allergy to Substance Active Mild 2018-07-22 00:00: 00 [facility] Naproxen Allergy to Substance Active Mild 2018-07-22 00:00:00 [facility] Metformin Allergy to Substance Active 2018-07-22 00:00:00 [facility] Meperidine Allergy to Substance Active Mild 2018-07-22 00:00:00 [facility] Morphine Drug Allergy [facility] Propensity to adverse reactions Active 2013-03-28 0 0:00:00 [facility] Meperidine Propensity to adverse reactions Active 2013-03-08 2 00:00:00 [facility] Naproxen Propensity to adverse reactions Active 2013-03-28 00:00:00 [facility] Hydrocodone-Acetaminophen Propensity to adverse reactions Active 2013-03-28 00:00:00 [facility] Social History Social Habit Start Date Stop Date Quantity Comments Source Sex Assigned At [facility] Tobacco Comment 2016-08-16 00:00:00 2016-08-16 00:00:00 smokes e ciga rettes [facility] Smoking Status Start Date Stop Date Source Never smoker [facility] Medications Ordered Medication Name Filled Medication Name Start Date Stop Da te Current Medication? Ordering Clinician Indication Dosage Frequency Signature (SIG) Comments Components Source magnesium 30 mg tablet 2016-08-16 17:07:39 Yes 30mg Q.5D Take 30 mg by mouth 2 (two) times daily. [facility] insulin glargine (LANTUS) 100 unit/mL injection 2016-02-01 13:00 :13 Yes 8U Q.5D Inject 8 Units subcutaneously 2 (two) times daily Use as directed. [facility] furosemide (LASIX) 40 MG tablet 2013-09-22 08:44:46 Yes 20mg Q.5D Take 20 mg by mouth 2 (two) times daily. [facility] lactulose (CHRONULAC) 10 gram/15 mL (15 mL) solution 2 00:00:00 Yes 20g Q.[id number] Take 30 mLs (20 g total) by mouth 3 (three) times daily. [facility] pregabalin (LYRICA) 75 MG capsule 2013-03-28 11:57:49 Yes 75mg QD Take 75 mg by mouth daily. [facility] saxagliptin 5 mg Tab 2013-03-28 11:57:49 Yes 5mg QD Take 5 mg by mouth daily. [facility] ursodiol (ACTIGALL) 300 mg capsule 2013-03-28 11:57:49 Y es 300mg Q.[id number] Take 300 mg by mouth 3 (three) times daily. [facility] esomeprazole (NEXIUM) 40 MG capsule 2013-03-28 11:57:49 Yes 40mg QD Take 40 mg by mouth daily. [facility] sucralfate (CARAFATE) 1 g tablet 2013-03-28 11:57:49 Yes 1g Q.25D Take 1 g by mouth 4 (four) times daily. [facility] traMADol (ULTRAM) 50 mg tablet 2013-03-28 11:57:49 Yes 50mg Take 50 mg by mouth every 6 (six) hours as needed. [facility] vitamin E 400 UNIT capsule 2013-03-28 11:57:49 Yes 400U Q.5D Take 400 Units by mouth 2 (two) times daily. [facility] spironolactone (ALDACTONE) 100 MG tablet 2013-03-28 11:57:48 Yes 100mg QD Take 100 mg by mouth daily. [facility] potassium chloride (KLOR-CON) 10 MEQ CR tablet 2013-03-28 11:57: 48 Yes 20meq Q.5D Take 20 mEq by mouth 2 (two) times daily. [facility] calcium carbonate (TUMS) 500 mg chewable tablet 2013-03-28 11:57 :48 Yes 1{tbl} QD Take 1 tablet by mouth daily. [facility] dicyclomine (BENTYL) 20 mg tablet 2013-03-28 11:57:48 Yes 20mg Take 20 mg by mouth every 6 (six) hours. [facility] Albuterol Sulfate 0.63 Mg/3 Ml Vial.neb Albuterol Sulfate 0. 63 Mg/3 Ml Vial.neb Yes [address] [facility] Albuterol Sulfate (Ventolin Hfa) 18 Gm Hfa.aer.ad Albu terol Sulfate (Ventolin Hfa) 18 Gm Hfa.aer.ad Yes [address] [facility] Fe Fumarate/Fa/Mv, Min Comb#15 (Hemocyte Plus Capsule) 1 Each Capsule Fe Fumarate/Fa/Mv, Min Comb#15 (Hemocyte Plus Capsule) 1 Each Capsule Yes [address] [facility] Furosemide (Lasix) 40 Mg Tablet Furosemide (Lasix) 40 Mg Tablet Yes [address] [facility] Insulin Glargine (Lantus 3ML Pen) 100 Units/1 Ml Inj I nsulin Glargine (Lantus 3ML Pen) 100 Units/1 Ml Inj Yes 8 Twice Pop y With Meals [facility] Lactulose 20 Gm/30 Ml Solution Lactulose 20 Gm/30 Ml Solution Yes 15 Daily [facility] Lisinopril 10 Mg Tablet Lisinopril 10 Mg Tablet Yes [address] [facility] Methimazole 10 Mg Tablet Methimazole 10 Mg Tablet Yes [address] [facility] Methocarbamol (Robaxin-750) 750 Mg Tablet Methocarbamo l (Robaxin-750) 750 Mg Tablet Yes [address] [facility] Ondansetron (Zofran Odt) 4 Mg Tab.rapdis Ondansetron ( Zofran Odt) 4 Mg Tab.rapdis Yes 4 Twice A Day as needed for N ausea And Vomiting [facility] Rifaximin (Xifaxan) 550 Mg Tablet Rifaximin (Xifaxan) 550 Mg Tablet Yes [address] [facility] Spironolactone (Aldactone) 25 Mg Tablet Spironolactone (Kristine ctone) 25 Mg Tablet Yes 50 Daily [facility] Tramadol Hcl (Ultram 50MG*) 50 Mg Tab Tramadol Hcl (Ultram 50MG*) 5 0 Mg Tab Yes Every 6 Hours [facility] Ursodiol 300 Mg Capsule Ursodiol 300 Mg Capsule Yes 1 Three Times A Day [facility] Meloxicam 7.5 Mg Tablet, 15 Mg Oral Meloxicam 7.5 Mg Tablet, 15 Mg Oral 2017-09-13 00:00:[address] [facility] Spironolactone 25 Mg Tablet, 50 Mg Oral Spironolactone 25 Mg Tablet, 50 Mg Oral 2017-09-13 00:00:[address] [facility] Gabapentin 300 Mg Capsule, 300 Mg Oral Gabapentin 300 Mg Capsule , 300 Mg Oral 2016-11-21 00:00:00 No [address] [facility] Meloxicam 7.5 Mg Tablet, 15 Mg Oral Meloxicam 7.5 Mg Tablet, 15 Mg Oral 2016-11-21 00:00:[address] [facility] Methocarbamol 750 Mg Tablet, 500 Mg Oral Methocarbamol 750 Mg Tablet, 500 Mg Oral 2016-11-21 00:00:[address] [facility] Tramadol Hcl (Ultram 50MG*) 50 Mg Tab, 50 Mg Oral Tram adol Hcl (Ultram 50MG*) 50 Mg Tab, 50 Mg Oral 2016-11-21 00:00:00 No 50 Every 6 Hours as needed for Pain [facility] Furosemide (Lasix) 40 Mg Tablet, 40 Mg Oral Furosemide (Lasix) 40 Mg Tablet, 40 Mg Oral 2016-08-05 00:00:00 No [address] [facility] Levofloxacin (Levaquin) 500 Mg Tablet, 500 Mg Oral Lev ofloxacin (Levaquin) 500 Mg Tablet, 500 Mg Oral 2016-08-05 00:00:[address] [facility] Procedures Procedure Date / Time Performed Performing Clinician [facility] e X-ray of chest, two views 2019-07-11 00:00:00 SHORT, SIM D C [facility] Encounters Start Date/Time End Date/Time Encounter Type Admission Type Attendi [email or web address] Care Department Encounter ID Source 2019-07-11 11:48:00 2019-07-11 15:07:00 Departed Emergency Room 1 CHUCK WELLS [facility] [id number] [facility] 2019-01-18 18:46:00 2019-01-18 21:22:00 Departed Emergency Room [facility] [id number] [facility] 2018-12-03 13:35:00 2018-12-03 15:28:00 Departed Emergency Room 1 EBONY TSAI [facility] [id number] [facility] 2018-07-22 15:27:00 2018-07-22 18:56:00 Departed Emergency Room 1 COY ENNIS [facility] [id number] [facility] 2017-09-08 23:39:00 2017-09-13 11:15:00 Discharged Inpatient ER JUNI DEAL [facility] [id number] [facility] 2016-11-18 23:55:00 2016-11-21 19:03:00 Discharged Inpatient [facility] [id number] [facility] Results Test Description Test Time Test Comments Results Result Comments Source CT CHEST W 2020-01-30 11:11:00 [place] [address] Patient Name: DELORES KATE MR #: [id number] : 1955 Age/Sex: 64/F Req #: [id number] Adm Physician: JUNI DEAL MD Ordered by: CHUCK WELLS MD Report #: [id number] Location: [facility] Room/Bed: [place] [address] Procedure: [id number] CT/CT CHEST W Exam Date: 01/30/20 Exam Time: 1010 REPORT STATUS: Signed EXAM: CT Chest WITH intravenous contrast 01/30/2020 10:10 AM INDICATION: Y RIGHT PLEURAL EFFUSION [id number] 1010 N. COMPARISON: Chest x-ray dated 07/11/2019 TECHNIQUE: Chest was scanned utilizing a multidetector helical scanner from the lung apex through the level of the adrenal glands following administration of IV contrast. Coronal and sagittal reformations were obtained. Routine protocol was performed. IV CONTRAST: 100mL Isovue 370 RADIATION DOSE: Total DLP: 453 mGy*cm. Dose modulation, iterative reconstruction, and/or weight based adjustment of the mA/kV was utilized to reduce the radiation dose to as low as reasonably achievable. COMPLICATIONS: None FINDINGS: LINES/ TUBES: None. LUNGS, PLEURA AND AIRWAYS: There is a large right effusion. There is trace left effusion. There is atelectasis of the right lower lobe and portions of the right middle lobe. There are a few pleural-based opacities within the medial anterior right upper lobe (axial lung window, image 32). There are a few perihilar similar hazy opacities within the left lung. Negative for focal lobar consolidation. Negative for pneumothorax. HEART AND MEDIASTINUM: The thyroid gland is normal. No mediastinal, hilar or axillary lymphadenopathy. Nonenlarged mediastinal lymph nodes are noted. The heart is normal in size. There is no pericardial effusion. Thoracic aorta is unremarkable. UPPER ABDOMEN: Trace perihepatic ascites is noted. Cirrhotic liver morphology is noted with nodular contours. Splenomegaly is noted. Esophageal varices are noted. BONES: Negative for acute osseous abnormality. Osseous structures are demineralized. Moderate multilevel degenerative changes of the midthoracic spine is noted. Lower thoracic vertebral hemangioma is noted. No suspicious lytic or blastic lesion. SOFT TISSUES: Unremarkable. IMPRESSION: 1. Large right and trace left pleural effusions with overlying atelectasis. A few areas of pleural-based nodular opacities within the anterior right upper l obe and left perihilar regions could relate to superimposed bronchitis versus early edema. No focal lobar consolidation is noted. 2. Cirrhotic liver morphology with sequela of portal hypertension including small volume ascites and splenomegaly. Signed by: Ainsley Carrasquillo MD on 01/30/2020 11:15 AM Dictated By: IANSLEY CARRASQUILLO MD 14 Transcribed By: SALVADOR on 01/30/20 111 COPY TO: CHUCK WELLS MD Sodium Level 2019-07-11 14:14:00 Test Item Sodium Level (test code = 2951-2) 135 136-[address] [facility] [id number] 14:14:00* Test Item Value Reference Range Interpretation Comments Potassium Level (test code = 2823-3) 3.6 3.5-5.1 [facility]Chloride [id number] 14:14:00* Test Item Value Reference Range Interpretation Comments Chloride Level (test code = 2075-0) 102 98-107 [facility] HospitalCarbon Dioxide Ndoaw3471-01-09 14:14:00* Test Item Value Reference Range Interpretation Comments Carbon Dioxide Level (test code = 2028-9) 27 22-29 [facility] HospitalAnion [id number] 14:14:00* Test Item Value Reference Range Interpretation Comments Anion Gap (test code = 48190-7) 9.6 8-16 [facility]Blood Urea [id number] 14:14:00* Test Item Value Reference Range Interpretation Comments Blood Urea Nitrogen (test code = 3094-0) 5 7-[address] [facility] HospitalCreatinine2020-03-06 14:14:00* Test Item Value Reference Range Interpretation Comments Creatinine (test code = 2160-0) 0.81 0.57-1.11 [facility]BUN/Creatinine [id number] 14:14:00* Test Item Value Reference Range Interpretation Comments BUN/Creatinine Ratio (test code = 3097-3) 6 6-25 [facility] HospitalEstimat Glomerular Filtration Rate 2019-07-11 14:14:00* Test Item Value Reference Range Interpretation Comments Estimat Glomerular Filtration Rate (test code = 874742270) > 60 >60 Ranges were taken from the National Kidney Disease Education Program and the [facility] [employer] literature.Reference ranges:60 or greater: Vjguof25-61 ( for 3 consecutive months): Chronic kidney disease 15 or less: Kidney failureSt. Joseph Health College [facility] HospitalGlucose Rvczp4266-78-83 14:14:00* Test Item Value Reference Range Interpretation Comments Glucose Level (test code = EMF5628) 338 74-[address] [facility] HospitalCalcium [id number] 14:14:00* Test Item Value Reference Range Interpretation Comments Calcium Level (test code = 01597-9) 8.7 8.4-10.2 [facility] HospitalTotal Nqzzuitgy6415-86-17 14:14:00* Test Item Value Reference Range Interpretation Comments Total Bilirubin (test code = 1975-2) 3.7 0.2-1.[address] [facility] HospitalAspartate Amino Transf (AST/SGOT) 2019-07-11 14:14:00* Test Item Value Reference Range Interpretation Comments Aspartate Amino Transf (AST/SGOT) (test code = Aspartate Amino Transf (AST/SGOT)) 35 5-[address] [facility] HospitalAlanine Aminotransferase (ALT/SGPT) 2019-07-11 14:14:00* Test Item Value Reference Range Interpretation Comments Alanine Aminotransferase (ALT/SGPT) (test code = 1742-6) 24 0-55 [facility] HospitalTotal Qwbmsex3533-15-19 14:14:00* Test Item Value Reference Range Interpretation Comments Total Protein (test code = 2885-2) 6.4 6.5-8.[address] [facility] HospitalAlbumin2020-03-06 14:14:00* Test Item Value Reference Range Interpretation Comments Albumin (test code = 1751-7) 2.9 3.5-5.[address] [facility] HospitalGlobulin2020-03-06 14:14:00* Test Item Value Reference Range Interpretation Comments Globulin (test code = 41351-1) 3.5 2.3-3.5 [facility] HospitalAlbumin/Globulin [id number] 14:14:00 * Test Item Value Reference Range Interpretation Comments Albumin/Globulin Ratio (test code = 1759-0) 0.8 0.8-2.0 [facility] HospitalAlkaline Kzyiukoybkm0683-96-03 14:14:00* Test Item Value Reference Range Interpretation Comments Alkaline Phosphatase (test code = 6768-6) 166 40-[address] [facility] HospitalB-Type Natriuretic Bzwhzab5085-35-02 14:14:00* Test Item Value Reference Range Interpretation Comments B-Type Natriuretic Peptide (test code = 02631-0) 99.7 0-100 [facility] HospitalCreatine [id number] 14:14:00* Test Item Value Reference Range Interpretation Comments Creatine Kinase (test code = 2157-6) 143 29-168 [facility] HospitalCreatine Kinase [id number] 14:14:00* Test Item Value Reference Range Interpretation Comments Creatine Kinase MB (test code = 21188-1) 4.20 0-5.0 [facility] HospitalTroponin [id number] 14:14:00* Test Item Value Reference Range Interpretation Comments Troponin I (test code = YPL3857) 0.010 0-0.300 [facility] HospitalInfluenza Virus Types A,B Antigen 2019-07-11 13:56:00* Test Item Value Reference Range Interpretation Comments Influenza Virus Types A,B Antigen (test code = 13672-7) NEGATIVE NEGATIVE [facility] HospitalProthrombin Viov0079-21-03 13:45:00* Test Item Value Reference Range Interpretation Comments Prothrombin Time (test code = 5902-2) 16.1 11.9-14.[address] [facility] HospitalProthromb Time International Ratio 2019-07-11 13:45:00* Test Item Value Reference Range Interpretation Comments Prothromb Time International Ratio (test code = 6301-6) 1.21 Oral Anticoagulant Therapy INR Values:1. Low Intensity Therapy 1.5 - 2.02 . Moderate Intensity Therapy 2.0 - 3.03. High Intensity Therapy(1) 2.5 - 3. 54. High Intensity Therapy(2) 3.0 - 4.05. Panic Value INR > 5.0 [facility] HospitalActivated Partial Thromboplast Time 2019-07-11 13:45:00* Test Item Value Reference Range Interpretation Comments Activated Partial Thromboplast Time (test code = 17575-5) 30.4 23.8-35.5 [facility] HospitalWhite Blood [id number] 13:43:00* Test Item Value Reference Range Interpretation Comments White Blood Count (test code = 6690-2) 3.90 4.8-10.[address] [facility] HospitalRed Blood Hqmlh6876-98-75 13:43:00* Test Item Value Reference Range Interpretation Comments Red Blood Count (test code = 789-8) 5.08 3.6-5.1 [facility] HospitalHemoglobin2020-03-06 13:43:00* Test Item Value Reference Range Interpretation Comments Hemoglobin (test code = 50753-0) 14.7 12.0-16.0 [facility] HospitalHematocrit2020-03-06 13:43:00* Test Item Value Reference Range Interpretation Comments Hematocrit (test code = 4544-3) 41.8 34.2-44.1 [facility] HospitalMean Corpuscular Lfqxij9409-70-90 13:43:00* Test Item Value Reference Range Interpretation Comments Mean Corpuscular Volume (test code = 787-2) 82.3 81-99 [facility] HospitalMean Corpuscular Zvwbphqclw8445-17-15 13:43:00* Test Item Value Reference Range Interpretation Comments Mean Corpuscular Hemoglobin (test code = 785-6) 28.9 28-32 [facility] HospitalMean Corpuscular Hemoglobin Concent 2019-07-11 13:43:00* Test Item Value Reference Range Interpretation Comments Mean Corpuscular Hemoglobin Concent (test code = 786-4) 35.2 31-[address] [facility] HospitalRed Cell Distribution [id number] 13:43:00* Test Item Value Reference Range Interpretation Comments Red Cell Distribution Width (test code = 14990-0) 14.3 11.7 -14.4 [facility] HospitalPlatelet Pnstg6790-13-00 13:43:00* Test Item Value Reference Range Interpretation Comments Platelet Count (test code = 777-3) 41 140-360 LL Results repeated and called to [JULIANNA TIDWELL RN] at 1341 on 07/11/19 by Kaylene Li. Read back and verified.[facility] Neutrophils (%) (Auto)2019-07-11 13:43:00* Test Item Value Reference Range Interpretation Comments Neutrophils (%) (Auto) (test code = 76092-3) 60.7 38.7-80.0 [facility] HospitalLymphocytes (%) (Auto)2019-07-11 13:43:00 * Test Item Value Reference Range Interpretation Comments Lymphocytes (%) (Auto) (test code = 736-9) 21.0 18.0-39.1 [facility] HospitalMonocytes (%) (Auto)2019-07-11 13:43:00* Test Item Value Reference Range Interpretation Comments Monocytes (%) (Auto) (test code = 5905-5) 8.2 4.4-11.3 [facility] HospitalEosinophils (%) (Auto)2019-07-11 13:43:00 * Test Item Value Reference Range Interpretation Comments Eosinophils (%) (Auto) (test code = 713-8) 9.0 0.0-6.[address] [facility] HospitalBasophils (%) (Auto)2019-07-11 13:43:00* Test Item Value Reference Range Interpretation Comments Basophils (%) (Auto) (test code = 706-2) 0.8 0.0-1.0 [facility] HospitalIM GRANULOCYTES %2019-07-11 13:43:00* Test Item Value Reference Range Interpretation Comments IM GRANULOCYTES % (test code = IM GRANULOCYTES %) 0.3 0.0- 1.0 [facility] HospitalNeutrophils # (Auto)2019-07-11 13:43:00* Test Item Value Reference Range Interpretation Comments Neutrophils # (Auto) (test code = 751-8) 2.4 2.1-6.9 [facility] HospitalLymphocytes # (Auto)2019-07-11 13:43:00* Test Item Value Reference Range Interpretation Comments Lymphocytes # (Auto) (test code = 55133-6) 0.8 1.0-3.[address] [facility] HospitalMonocytes # (Auto)2019-07-11 13:43:00* Test Item Value Reference Range Interpretation Comments Monocytes # (Auto) (test code = 742-7) 0.3 0.2-0.8 [facility] HospitalEosinophils # (Auto)2019-07-11 13:43:00* Test Item Value Reference Range Interpretation Comments Eosinophils # (Auto) (test code = 711-2) 0.4 0.0-0.4 [facility] HospitalBasophils # (Auto)2019-07-11 13:43:00* Test Item Value Reference Range Interpretation Comments Basophils # (Auto) (test code = 704-7) 0.0 0.0-0.1 [facility] HospitalAbsolute Immature Granulocyte (auto 2019-07-11 13:43:00* Test Item Value Reference Range Interpretation Comments Absolute Immature Granulocyte (auto (ga t code = Absolute Immature Granulocyte (auto) 0.01 0-0.1 [facility] HospitalCHEST 2 [id number] 13:09:00 [place] [address] Patient Name: DELORES KATE MR #: [id number] : 1955 Age/Sex: 63/F Req #: [id number] Adm Physician: Ordered by: SIM MCGILL PATROL CAPTAIN Report #: [id number] Location: ER Room/Bed: Procedure: [id number] DX/CHEST 2 VIEWS Exam Date: 07/11/19 Exam Time: 1218 REPORT STATUS: Signed Chest, 2 views, 07/11/2019. History: Shortness of breath, chest pain. Com parison: 07/22/2018. Findings: The cardiomediastinal silhouette and pulmonar y vasculature are within normal limits. Bibasilar linear opacities are present with blunting of the costophrenic sulci, right greater than left. There are no acute osseous or soft tissue abnormalities. Impression: Bibasilar a telectasis with small bilateral pleural effusions, right more than left, but l ess compared to prior exam. Signed by: Sim Mcadams on 07/11/2019 1:10 PM Dictated By: SIM MCADAMS MD 1310 Transcribed By: SALVADOR on 07/11/19 1310 COPY TO: SIM MCGILL PATROL CAPTAIN Urine [id number] 20:08:00* Test Item Value Reference Range Interpretation Comments Urine WBC (test code = 5821-4) 0-5 0-5 [facility] HospitalUrine [id number] 20:08:00* Test Item Value Reference Range Interpretation Comments Urine RBC (test code = 20811-7) 6-10 0-[address] [facility] HospitalUrine Vghnnfnu1001-13-04 20:08:00* Test Item Value Reference Range Interpretation Comments Urine Bacteria (test code = 31017-7) MANY NONE [facility] HospitalUrine Epithelial Yfuwx4129-73-20 20:08:00 * Test Item Value Reference Range Interpretation Comments Urine Epithelial Cells (test code = 41135-9) RARE NONE [facility] HospitalUrine [id number] 20:08:00* Test Item Value Reference Range Interpretation Comments Urine WBC (test code = 5821-4) 0-5 0-5 [facility] HospitalU[facility] [id number] 20:08:00* Test Item Value Reference Range Interpretation Comments Urine RBC (test code = 02316-6) 6-10 0-[address] [facility] HospitalUrine Oabsquva3893-39-40 20:08:00* Test Item Value Reference Range Interpretation Comments Urine Bacteria (test code = 72993-4) MANY NONE [facility] HospitalUrine Epithelial Tuuxp4444-36-60 20:08:00 * Test Item Value Reference Range Interpretation Comments Urine Epithelial Cells (test code = 77618-7) RARE NONE [facility] HospitalUrine Ihdws1170-35-53 19:53:00* Test Item Value Reference Range Interpretation Comments Urine Color (test code = 5778-6) YELLOW YELLOW [facility] HospitalUrine Efhpklm0462-75-71 19:53:00* Test Item Value Reference Range Interpretation Comments Urine Clarity (test code = 68784-7) CLEAR CLEAR [facility] HospitalUrine Specific Yuxoudd2239-67-48 19:53:00 * Test Item Value Reference Range Interpretation Comments Urine Specific [place] (test code = 5811-5) <=1.005 1.010-1.[address] [facility] HospitalUrine [id number] 19:53:00* Test Item Value Reference Range Interpretation Comments Urine pH (test code = 16708-2) 5.5 5-7 [facility] HospitalU[facility] Leukocyte Qfqlkhxm8888-80-74 19:53:00* Test Item Value Reference Range Interpretation Comments Urine Leukocyte Esterase (test code = 66733-1) NEGATIVE NEGATIV E [facility] HospitalUrine Rknfdrn6625-02-33 19:53:00* Test Item Value Reference Range Interpretation Comments Urine Nitrite (test code = 00018-1) POSITIVE NEGATIVE H [facility] HospitalUrine Tnbilyy7657-36-73 19:53:00* Test Item Value Reference Range Interpretation Comments Urine Protein (test code = 70379-2) NEGATIVE NEGATIVE [facility] HospitalUrine Glucose (UA)2019-01-18 19:53:00* Test Item Value Reference Range Interpretation Comments Urine Glucose (UA) (test code = 37425-1) 3+ NEGATIVE [facility] HospitalUrine Gojgcin9075-00-74 19:53:00* Test Item Value Reference Range Interpretation Comments Urine Ketones (test code = 29090-3) NEGATIVE NEGATIVE [facility] HospitalUrine Mfrqkvarqczr1315-52-58 19:53:00* Test Item Value Reference Range Interpretation Comments Urine Urobilinogen (test code = 70893-3) 4 0.2-1 [facility] HospitalU[facility] Gzkkozihh4020-13-75 19:53:00* Test Item Value Reference Range Interpretation Comments Urine Bilirubin (test code = 1977-8) NEGATIVE NEGATIVE [facility] Aazgv2377-03-65 19:53:00* Test Item Value Reference Range Interpretation Comments Urine Blood (test code = 79296-8) 1+ NEGATIVE [facility] HospitalU[facility] Zqdkx9261-86-34 19:53:00* Test Item Value Reference Range Interpretation Comments Urine Color (test code = 5778-6) YELLOW YELLOW [facility] HospitalUrine Eggeaqp7790-18-18 19:53:00* Test Item Value Reference Range Interpretation Comments Urine Clarity (test code = 62228-9) CLEAR CLEAR [facility] HospitalUrine Specific Falrnvn5368-06-54 19:53:00 * Test Item Value Reference Range Interpretation Comments Urine Specific [place] (test code = 5811-5) <=1.005 1.010-1.[address] [facility] HospitalU[facility] sI5457-78-71 19:53:00* Test Item Value Reference Range Interpretation Comments Urine pH (test code = 28964-5) 5.5 5-7 [facility] HospitalU[facility] Leukocyte Rvobcrlr4600-05-54 19:53:00* Test Item Value Reference Range Interpretation Comments Urine Leukocyte Esterase (test code = 85049-3) NEGATIVE NEGATIV E [facility] HospitalUrine Vkjlszh9840-26-84 19:53:00* Test Item Value Reference Range Interpretation Comments Urine Nitrite (test code = 47160-9) POSITIVE NEGATIVE [facility] HospitalUrine Bbzpfel9822-81-55 19:53:00* Test Item Value Reference Range Interpretation Comments Urine Protein (test code = 39634-0) NEGATIVE NEGATIVE [facility] HospitalUrine Glucose (UA)2019-01-18 19:53:00* Test Item Value Reference Range Interpretation Comments Urine Glucose (UA) (test code = 04434-4) 3+ NEGATIVE [facility] HospitalU[facility] Rcjvogv1668-29-07 19:53:00* Test Item Value Reference Range Interpretation Comments Urine Ketones (test code = 87557-9) NEGATIVE NEGATIVE [facility] HospitalU[facility] Kzrremwbqbxn1975-76-33 19:53:00* Test Item Value Reference Range Interpretation Comments Urine Urobilinogen (test code = 75841-2) 4 0.2-1 [facility] HospitalU[facility] Owhcknusf9498-81-25 19:53:00* Test Item Value Reference Range Interpretation Comments Urine Bilirubin (test code = 1977-8) NEGATIVE NEGATIVE [facility] HospitalU[facility] Fnrfy9817-27-58 19:53:00* Test Item Value Reference Range Interpretation Comments Urine Blood (test code = 89321-9) 1+ NEGATIVE [facility] HospitalFOOT LEFT YXIRJHBL8291-67-58 15:07:00 [facility] [address] [place] [address] Patient Name: DELORES KATE MR #: [id number] : 1955 Age/Sex: 63/F Req #: [id number] Adm Physician: Ordered by: SIM MCGILL PATROL CAPTAIN Report #: [id number] Location: ER Room/Bed: Procedure: [id number] DX/FOOT LEFT COMPLETE Exam Date: 12/03/18 Exam Time: 1402 REPORT STATUS: Signed EXAM INATION: FOOT LEFT COMPLETE INDICATION: Foot pain COMPARISON: Non e FINDINGS: 3 views of the left foot demonstrate no acute fractur e or dislocation. No substantial degenerative changes. No ankle joint effusion . IMPRESSION: No acute osseous injury. Signed by: Porsche Abbasi MD on 12/03/2018 3:09 PM Dictated By: PORSCHE ABBASI MD 1509 Transcribed By: SALVADOR on 12/03/18 1509 C OPY TO: SIM MCGILL NP CHEST 2 SVJZL8086-05-93 17:13:00 [place] [address] Patient Name: DELORES KATE MR #: [id number] : 1955 Age/Sex: 62/F Req #: [id number] Adm Physician: Ordered by: COY ENNIS MD Report #: [id number] Location: ER Room/Bed: Procedure: [id number] DX/CHEST 2 VIEWS Exam Date: 07/22/18 Exam Time: 17 00 REPORT STATUS: Signed EXAMINA TION: CHEST 2 VIEWS INDICATION 62-year-old female, rule out pneumonia COMPARISON: Chest radiograph dated 09/08/2017 FINDINGS: AP and lat eral views of the chest TUBES and LINES: None. LUNGS/PLEURA: Mild op acity in the right lower lobe may represent developing airspace disease versus atelectasis due to pleural effusion. Small to moderate right and small left p leural effusions. HEART AND MEDIASTINUM: The cardiomediastinal silhouette is unremarkable. BONES AND SOFT TISSUES: No acute osseous lesion. Sof t tissues are unremarkable. UPPER ABDOMEN: No free air under the diaphrag m. IMPRESSION: Mild opacity in the medial right lower lobe may repre sent atelectasis versus developing consolidation, follow-up is recommended. In terval increase in size of small to moderate right and small left pleural effu sions. Signed by: Wilfred Hanna MD on 07/22/2018 5:18 PM Dictated By: RUFINO HANNA MD 17 COPY TO: COY BECKMAN MD SCR MAMM BILATERAL MARTELL CAD [id number] 11:28:40 - SCR MAMM BILATERAL MARTELL CAD DIGITALBILATERAL DIGITAL SCREENING MAMMOGRAM 3D/2D WITH CAD: 07/09/2018CLINICAL: Asymptomatic. Digital breast tomosynthesis was pe rformed in addition to routine CC and MLO views. Current mammographic images we re evaluated by either a [employer] M-Vu or a [employer] Image[employer] CAD (computer aid ed detection system). Comparison is made to exams dated 11/26/2012 mammogram, mammogram, and 06/29/2010 mammogram - [facility]. There are scattered fibroglandular tissues in both breasts. No suspicious mass, archi tectural distortion, malignant type calcification, or lymph node abnormality det ected. Breast architecture is stable compared to prior exams.IMPRESSION: NEGATI VEThere is no mammographic evidence of malignancy. Resume annual screening mammo graphy in one year. Ganga Benavides M.D. ss/penrad:07/09/2018 11:28:4 0 Cartridge Assembler: Jennifer Beard , [facility] sent: BIRADS 1-2 Normal Mammogram BI-RADS: 1 NegativeBedside Qmbbrjd8473-92-08 08:17:00* Test Item Value Reference Range Interpretation Comments Bedside Glucose (test code = 18979-2) 113 70-120 Meter ID: [id number] [facility] Centerodium Level 2017-09-13 07:40:00* Test Item Value Reference Range Interpretation Comments Sodium Level (test code = 2951-2) 141 136-145 [facility] HospitalPotassium Fxhtb4838-57-29 07:40:00* Test Item Value Reference Range Interpretation Comments Potassium Level (test code = 2823-3) 4.6 3.5-5.1 [facility] HospitalChloride Dnizu1022-86-60 07:40:00* Test Item Value Reference Range Interpretation Comments Chloride Level (test code = 2075-0) 106 98-107 [facility] HospitalCarbon Dioxide Qjipm9693-45-27 07:40:00* Test Item Value Reference Range Interpretation Comments Carbon Dioxide Level (test code = 2028-9) 28 22-29 [facility] HospitalAnion Lai7146-85-07 07:40:00* Test Item Value Reference Range Interpretation Comments Anion Gap (test code = 92822-5) 11.6 8-16 [facility] HospitalBlood Urea Gedoyhvv6884-19-16 07:40:00* Test Item Value Reference Range Interpretation Comments Blood Urea Nitrogen (test code = 3094-0) 16 7-26 [facility] HospitalCreatinine2018-05-10 07:40:00* Test Item Value Reference Range Interpretation Comments Creatinine (test code = 2160-0) 0.82 0.57-1.11 [facility] HospitalBUN/Creatinine Mvqwr9004-74-24 07:40:00* Test Item Value Reference Range Interpretation Comments BUN/Creatinine Ratio (test code = 3097-3) 20 6-25 [facility] HospitalEstimat Glomerular Filtration Rate 2017-09-13 07:40:00* Test Item Value Reference Range Interpretation Comments Estimat Glomerular Filtration Rate (test code = 43883-1) 60- >60 Ranges were taken from the National Kidney Disease Education Program and the [facility] literature.Reference ranges:60 or greater: Rcpott39-02 ( for 3 consecutive months): Chronic kidney disease 15 or less: Kidney failureSt. Joseph Health [facility] HospitalGlucose Dzcjc6825-53-24 07:40:00* Test Item Value Reference Range Interpretation Comments Glucose Level (test code = SVN9636) 114 74-118 [facility] HospitalCalcium Tuqdn5636-98-52 07:40:00* Test Item Value Reference Range Interpretation Comments Calcium Level (test code = 94333-6) 8.8 8.4-10.2 [facility] HospitalPhosphorus Hfdkn9525-23-55 07:40:00* Test Item Value Reference Range Interpretation Comments Phosphorus Level (test code = ZMF2801) 3.6 2.3-4.7 [facility] HospitalMagnesium Hvzdt5560-49-05 07:40:00* Test Item Value Reference Range Interpretation Comments Magnesium Level (test code = 65383-4) 1.7 1.3-2.1 [facility] HospitalTotal Xmmlxozwd0751-68-27 07:40:00* Test Item Value Reference Range Interpretation Comments Total Bilirubin (test code = 1975-2) 2.4 0.2-1.[address] [facility] HospitalAspartate Amino Transf (AST/SGOT) 2017-09-13 07:40:00* Test Item Value Reference Range Interpretation Comments Aspartate Amino Transf (AST/SGOT) (test code = Aspartate Amino Transf (AST/SGOT)) 60 5-[address] [facility] HospitalAlanine Aminotransferase (ALT/SGPT) 2017-09-13 07:40:00* Test Item Value Reference Range Interpretation Comments Alanine Aminotransferase (ALT/SGPT) (test code = 1742-6) 34 0-55 [facility] Akiwaxm0663-07-90 07:40:00* Test Item Value Reference Range Interpretation Comments Total Protein (test code = 2885-2) 5.6 6.5-8.[address] [facility] HospitalAlbumin2018-05-10 07:40:00* Test Item Value Reference Range Interpretation Comments Albumin (test code = 1751-7) 2.4 3.5-5.[address] [facility] HospitalGlobulin2018-05-10 07:40:00* Test Item Value Reference Range Interpretation Comments Globulin (test code = 67317-6) 3.2 2.3-3.5 [facility] HospitalAlbumin/Globulin Ywwpg1902-69-40 07:40:00 * Test Item Value Reference Range Interpretation Comments Albumin/Globulin Ratio (test code = 1759-0) 0.8 0.8-2.0 [facility] HospitalAlkaline Ptvujorovzr1730-15-01 07:40:00* Test Item Value Reference Range Interpretation Comments Alkaline Phosphatase (test code = 6768-6) 119 40-150 [facility] HospitalHemoglobin A1c Rkwqsfi0227-66-61 07:24:00 * Test Item Value Reference Range Interpretation Comments Hemoglobin A1c Percent (test code = Hemoglobin A1c Percent) 7.2 4.0-7.[address] [facility] HospitalUrine SCY9438-16-28 18:40:00* Test Item Value Reference Range Interpretation Comments Urine WBC (test code = 5821-4) 0-5 0-5 [facility] HospitalUrine BDP6814-13-27 18:40:00* Test Item Value Reference Range Interpretation Comments Urine RBC (test code = 69497-5) 0-5 0-5 [facility] HospitalUrine Tktikztt3689-84-01 18:40:00* Test Item Value Reference Range Interpretation Comments Urine Bacteria (test code = 91604-7) NONE NONE [facility] HospitalUrine Epithelial Djhvm1769-83-89 18:40:00 * Test Item Value Reference Range Interpretation Comments Urine Epithelial Cells (test code = 19810-5) MANY NONE [facility] HospitalUrine Hyaline Vagdm1054-41-24 18:40:00* Test Item Value Reference Range Interpretation Comments Urine Hyaline Casts (test code = 58721-7) 2-5 0-[address] [facility] HospitalUrine Pfgyb4487-72-63 18:23:00* Test Item Value Reference Range Interpretation Comments Urine Color (test code = 5778-6) ALEC YELLOW H [facility] HospitalUrine Yofkbnc1819-83-17 18:23:00* Test Item Value Reference Range Interpretation Comments Urine Clarity (test code = 47792-0) CLEAR CLEAR [facility] HospitalUrine Specific Mjtqqzm1538-20-01 18:23:00 * Test Item Value Reference Range Interpretation Comments Urine Specific [place] (test code = 5811-5) 1.020 1.010-1.[address] [facility] HospitalUrine vS2391-85-20 18:23:00* Test Item Value Reference Range Interpretation Comments Urine pH (test code = 03704-8) 6 5-7 [facility] HospitalUrine Leukocyte Xzccpuws5521-78-59 18:23:00* Test Item Value Reference Range Interpretation Comments Urine Leukocyte Esterase (test code = 5799-2) NEGATIVE NEGATIVE [facility] HospitalUrine Onqsvwx8101-34-29 18:23:00* Test Item Value Reference Range Interpretation Comments Urine Nitrite (test code = 43129-4) NEGATIVE NEGATIVE [facility] HospitalUrine Ydehywm5822-64-52 18:23:00* Test Item Value Reference Range Interpretation Comments Urine Protein (test code = 5804-0) NEGATIVE NEGATIVE [facility] HospitalUrine Glucose (UA)2017-09-12 18:23:00* Test Item Value Reference Range Interpretation Comments Urine Glucose (UA) (test code = 2349-9) NEGATIVE NEGATIVE [facility] HospitalUrine Chvnnbr2801-90-73 18:23:00* Test Item Value Reference Range Interpretation Comments Urine Ketones (test code = 10734-1) NEGATIVE NEGATIVE [facility] HospitalUrine Ofgexotpvmat6085-89-93 18:23:00* Test Item Value Reference Range Interpretation Comments Urine Urobilinogen (test code = 15144-5) 0.2 0.2-1 [facility] HospitalUrine Lmuwilopd8558-06-58 18:23:00* Test Item Value Reference Range Interpretation Comments Urine Bilirubin (test code = 1978-6) NEGATIVE NEGATIVE [facility] HospitalUrine Eklrw2378-89-91 18:23:00* Test Item Value Reference Range Interpretation Comments Urine Blood (test code = 57074-9) NEGATIVE NEGATIVE [facility] HospitalLipase2018-05-09 09:38:00* Test Item Value Reference Range Interpretation Comments Lipase (test code = 3040-3) 72 8-78 [facility] HospitalAmmonia2018-05-09 09:13:00* Test Item Value Reference Range Interpretation Comments Ammonia (test code = 89407-4) 86 31-123 [facility] HospitalDifferential Total Cells Counted 2017-09-10 09:34:00* Test Item Value Reference Range Interpretation Comments Differential Total Cells Counted (test code = Differen tial Total Cells Counted) 100 [facility] HospitalNeutrophils % (Manual)2017-09-10 09:34:00 * Test Item Value Reference Range Interpretation Comments Neutrophils % (Manual) (test code = 86389-5) 79 40-[address] [facility] HospitalLymphocytes % (Manual)2017-09-10 09:34:00 * Test Item Value Reference Range Interpretation Comments Lymphocytes % (Manual) (test code = 737-7) 15 19-[address] [facility] HospitalMonocytes % (Manual)2017-09-10 09:34:00* Test Item Value Reference Range Interpretation Comments Monocytes % (Manual) (test code = 744-3) 4 3.4-9.0 [facility] HospitalEosinophils % (Manual)2017-09-10 09:34:00 * Test Item Value Reference Range Interpretation Comments Eosinophils % (Manual) (test code = 714-6) 1 0-7 [facility] HospitalBlast Cells %2017-09-10 09:34:00* Test Item Value Reference Range Interpretation Comments Blast Cells % (test code = 56185-3) 1 [facility] HospitalPlatelet Schduuwj2143-29-53 09:34:00* Test Item Value Reference Range Interpretation Comments Platelet Estimate (test code = 56331-2) MODERATELY DECREASED [facility] HospitalPlatelet Morphology Uvirlna1593-61-87 09:34:00* Test Item Value Reference Range Interpretation Comments Platelet Morphology Comment (test code = 16250-0) FEW GIANT [facility] HospitalAnisocytosis2018-05-07 09:34:00* Test Item Value Reference Range Interpretation Comments Anisocytosis (test code = 702-1) SLIGHT [facility] HospitalTear Drop Otkba5273-82-53 09:34:00* Test Item Value Reference Range Interpretation Comments Tear Drop Cells (test code = 7791-7) FEW [facility] HospitalRed Cell Morphology Npvkopk7358-92-32 09:34:00* Test Item Value Reference Range Interpretation Comments Red Cell Morphology Comment (test code = 6742-1) NORMAL [facility] HospitalVitamin B12 Nkatf4591-76-23 08:09:00* Test Item Value Reference Range Interpretation Comments Vitamin B12 Level (test code = 66361-8) 649 740-908 [facility] HospitalThyroid Stimulating Hormone (TSH) 2017-09-10 07:47:00* Test Item Value Reference Range Interpretation Comments Thyroid Stimulating Hormone (TSH) (test code = 39638-8) 0.778 0.350-4.940 [facility] HospitalWhite Blood Yqoxs5255-50-78 07:10:00* Test Item Value Reference Range Interpretation Comments White Blood Count (test code = 6690-2) 4.45 4.8-10.[address] [facility] HospitalRed Blood Pmjre4786-12-68 07:10:00* Test Item Value Reference Range Interpretation Comments Red Blood Count (test code = 789-8) 4.27 3.6-5.1 [facility] HospitalHemoglobin2018-05-07 07:10:00* Test Item Value Reference Range Interpretation Comments Hemoglobin (test code = 64992-4) 12.2 12.0-16.0 [facility] HospitalHematocrit2018-05-07 07:10:00* Test Item Value Reference Range Interpretation Comments Hematocrit (test code = 4544-3) 36.4 34.2-44.1 [facility] HospitalMean Corpuscular Cejbbf6666-16-41 07:10:00* Test Item Value Reference Range Interpretation Comments Mean Corpuscular Volume (test code = 787-2) 85.2 81-99 [facility] HospitalMean Corpuscular Vfevqumajn9019-22-43 07:10:00* Test Item Value Reference Range Interpretation Comments Mean Corpuscular Hemoglobin (test code = 785-6) 28.6 28-32 [facility] Hem[facility] Concent 2017-09-10 07:10:00* Test Item Value Reference Range Interpretation Comments Mean Corpuscular Hemoglobin Concent (test code = 786-4) 33.5 31-35 [facility] HospitalRed Cell Distribution Mqjsf0335-94-48 07:10:00* Test Item Value Reference Range Interpretation Comments Red Cell Distribution Width (test code = 50503-7) 14.9 11.7 -14.[address] [facility] HospitalPlatelet Csfkk1069-75-40 07:10:00* Test Item Value Reference Range Interpretation Comments Platelet Count (test code = 777-3) 38 140-360 LL Results called to ALEXIS ACEVEDO RN at 0709 on 09/10/17 by Mario Ling. RB OK. [facility] HospitalNeutrophils (%) (Auto)2017-09-10 07:10:00 * Test Item Value Reference Range Interpretation Comments Neutrophils (%) (Auto) (test code = 18978-1) 74.0 38.7-80.0 [facility] HospitalLymphocytes (%) (Auto)2017-09-10 07:10:00 * Test Item Value Reference Range Interpretation Comments Lymphocytes (%) (Auto) (test code = 736-9) 11.0 18.0-39.[address] [facility] HospitalMonocytes (%) (Auto)2017-09-10 07:10:00* Test Item Value Reference Range Interpretation Comments Monocytes (%) (Auto) (test code = 5905-5) 11.9 4.4-11.[address] [facility] HospitalEosinophils (%) (Auto)2017-09-10 07:10:00 * Test Item Value Reference Range Interpretation Comments Eosinophils (%) (Auto) (test code = 713-8) 2.0 0.0-6.0 [facility] HospitalBasophils (%) (Auto)2017-09-10 07:10:00* Test Item Value Reference Range Interpretation Comments Basophils (%) (Auto) (test code = 706-2) 0.7 0.0-1.0 [facility] HospitalIM [facility]ANULOCYTES %2017-09-10 07:10:00* Test Item Value Reference Range Interpretation Comments IM GRANULOCYTES % (test code = IM GRANULOCYTES %) 0.4 0.0- 1.0 [facility] HospitalNeutrophils # (Auto)2017-09-10 07:10:00* Test Item Value Reference Range Interpretation Comments Neutrophils # (Auto) (test code = 751-8) 3.3 2.1-6.9 [facility] HospitalLymphocytes # (Auto)2017-09-10 07:10:00* Test Item Value Reference Range Interpretation Comments Lymphocytes # (Auto) (test code = 23617-8) 0.5 1.0-3.[address] [facility] HospitalMonocytes # (Auto)2017-09-10 07:10:00* Test Item Value Reference Range Interpretation Comments Monocytes # (Auto) (test code = 742-7) 0.5 0.2-0.8 [facility] HospitalEosinophils # (Auto)2017-09-10 07:10:00* Test Item Value Reference Range Interpretation Comments Eosinophils # (Auto) (test code = 711-2) 0.1 0.0-0.4 [facility] HospitalBasophils # (Auto)2017-09-10 07:10:00* Test Item Value Reference Range Interpretation Comments Basophils # (Auto) (test code = 704-7) 0.0 0.0-0.1 [facility] HospitalAbsolute Immature Granulocyte (auto 2017-09-10 07:10:00* Test Item Value Reference Range Interpretation Comments Absolute Immature Granulocyte (auto (ga t code = Absolute Immature Granulocyte (auto) 0.02 0-0.1 [facility] HospitalAmylase [id number] 09:44:00* Test Item Value Reference Range Interpretation Comments Amylase Level (test code = 1798-8) 99 25-125 [facility] HospitalCreatine Rgkioz2038-12-97 20:46:00* Test Item Value Reference Range Interpretation Comments Creatine Kinase (test code = 2157-6) 386 29-[address] [facility] HospitalCreatine Kinase [id number] 20:46:00* Test Item Value Reference Range Interpretation Comments Creatine Kinase MB (test code = 93588-6) 20.40 0-5.[address] [facility] HospitalTroponin [id number] 20:46:00* Test Item Value Reference Range Interpretation Comments Troponin I (test code = CCL0662) 0.001 0-0.300 [facility] HospitalBlood [id number] 22:13:00* Test Item Value Reference Range Interpretation Comments Blood Culture (test code = 45061535) NO GROWTH AFTER 5 DAYS, FINAL REPORT [facility] HospitalUrine [id number] 08:42:00* Test Item Value Reference Range Interpretation Comments Urine Culture (test code = 630-4) Organism: ESCHERICHIA COLI-ESBL [facility] HospitalBand Neutrophils %2016-11-21 07:39:00* Test Item Value Reference Range Interpretation Comments Band Neutrophils % (test code = 764-1) 1 [facility] HospitalBasophils % (Manual)2016-11-21 07:39:00* Test Item Value Reference Range Interpretation Comments Basophils % (Manual) (test code = 93436-8) 1 0-1.5 [facility] HospitalHypochromasia2017-07-18 07:39:00* Test Item Value Reference Range Interpretation Comments Hypochromasia (test code = 728-6) SLIGHT [facility] HospitalElliptocytes2017-07-18 07:39:00* Test Item Value Reference Range Interpretation Comments Elliptocytes (test code = 20871-3) SLIGHT [facility] HospitalBacterial urine xceouqn8725-92-94 07:38:00* Test Item Value Reference Range Interpretation Comments Urine Culture (test code = 630-4) Organism: STREPTOCOCCUS VIRIDANS [facility] HospitalEthyl Alcohol Rgpqc5320-81-78 22:47:00* Test Item Value Reference Range Interpretation Comments Ethyl Alcohol Level (test code = 5643-2) -10.0 0.0-10.0 --- 11/18/162246 ---ETHANOL previously reported as: < 10.0 mg/dL [facility] Iihnz4832-09-28 22:47:00* Test Item Value Reference Range Interpretation Comments Salicylates Level (test code = 4024-6) -5.0 0-30 [facility] HospitalAcetaminophen Owaba0766-36-47 22:46:00* Test Item Value Reference Range Interpretation Comments Acetaminophen Level (test code = 72595-3) -3 10-[address] [facility] HospitalUrine Opiates Ozfjkf7079-47-40 22:36:00* Test Item Value Reference Range Interpretation Comments Urine Opiates Screen (test code = 03457-6) NEGATIVE NEGATIVE ALL TESTS PERFORMED MANUALLY ON SIGNIFY ER TESTSt. [facility] HospitalUrine Barbiturates Qnirej7205-13-20 22:36:00* Test Item Value Reference Range Interpretation Comments Urine Barbiturates Screen (test code = 454641806) NEGATIVE NEGA TIVE [facility] HospitalUrine Phencyclidine Rsndjk9317-09-19 22:36:00* Test Item Value Reference Range Interpretation Comments Urine Phencyclidine Screen (test code = 99319-7) NEGATIVE NEGAT JANIS [facility] HospitalUrine Amphetamines Rwoleb3903-48-58 22:36:00* Test Item Value Reference Range Interpretation Comments Urine Amphetamines Screen (test code = 36467-8) NEGATIVE NEGATI VE [facility] HospitalUrine Benzodiazepines [id number] 22:36:00* Test Item Value Reference Range Interpretation Comments Urine Benzodiazepines Screen (test code = 02362-8) NEGATIVE NEG ATIVE [facility] HospitalUrine Cocaine Izijsw8775-72-69 22:36:00* Test Item Value Reference Range Interpretation Comments Urine Cocaine Screen (test code = Urine Cocaine Screen) NEGATIVE NEGATIVE [facility] HospitalUrine Cannabinoids Ekezvd4120-13-77 22:36:00* Test Item Value Reference Range Interpretation Comments Urine Cannabinoids Screen (test code = 71391-8) NEGATIVE NEGATI VE THESE RESULTS ARE FOR MEDICAL TREATMENT ONLYTHIS REPORT CONTAINS UNCONFIR MED SCREENING RESULTS*POSITIVE RESULTS WILL BE CONFIRMED BY REFERENCE LAB UPON R EQUEST CUT-OFFDRUG CLASS CONCENTRATION ng/mLAmphetamines 1000Methamphetamines 1000Cocaine 300Opiate 300Phencyc lidine 25Cannabinoid 50Barbiturates 300Benzodiazepine 300Methadone 300[facility] HospitalLactic Acid Orudp2896-80-62 22:31:00* Test Item Value Reference Range Interpretation Comments Lactic Acid Level (test code = Lactic Acid Level) 14.0 4.5- 19.8 [facility] HospitalActivated Partial Thromboplast Time 2016-11-18 22:23:00* Test Item Value Reference Range Interpretation Comments Activated Partial Thromboplast Time (test code = 12728-7) 29.1 23.8-35.5 [facility] HospitalProthrombin Diwx6350-11-72 22:22:00* Test Item Value Reference Range Interpretation Comments Prothrombin Time (test code = 5902-2) 14.7 11.9-14.[address] [facility] HospitalProthromb Time International Ratio 2016-11-18 22:22:00* Test Item Value Reference Range Interpretation Comments Prothromb Time International Ratio (test code = 6301-6) 1.09 Oral Anticoagulant Therapy INR Values:1. Low Intensity Therapy 1.5 - 2.02 . Moderate Intensity Therapy 2.0 - 3.03. High Intensity Therapy(1) 2.5 - 3. 54. High Intensity Therapy(2) 3.0 - 4.05. Panic Value INR > 5.0 [facility] HospitalTISSUE [id number] 10:03:00Surgical Pathology Report Case: [id number] Authorizing Provider: Neena Fuentes MD Ordering Provider: Neena Fuentes MD MPH MPH Ordering Location: [facility] Endoscopy Collected: 08/21/2016 1421 Services Pathologist: Varinder Rodgers MD Re ceived: 08/22/2016 0725 Specimen: Sto mach, Antrum, bx STOMACH, ANTRUM, BIOPSY: - CHRONIC INACTIVE GASTRITIS - NEGATIVE FOR H. PYLO RI BY WARTHIN-STARRY STAIN Signing Pathologist Direct Phone Line: [phone], [phone] of liver without ascitesStomach antrum biopsyReceived in for yoanna labeled "stomach, antrum" are two fragments measuring 0.3 and 0.5 cm in gr eatest dimension. Entirely submitted A1. DB/plPerformed.The following special st udies were performed on this case and the interpretation is incorporated in the diagnostic report above:TERESATHIN-PELONPLATELET [id number] 11:12:00* Test Item Value Reference Range Interpretation Comments PLATELET COUNT (BEAKER) (test code = 756) 38 K/CU MM 150-430 L POTASSIUM-STAT [id number] 10:42:00* Test Item Value Reference Range Interpretation Comments POTASSIUM (BEAKER) (test code = 379) 3.3 meq/L 3.6-5.5 L POCT-GLUCOSE [id number] 10:37:00* Test Item Value Reference Range Interpretation Comments POC-GLUCOSE METER (BEAKER) (test code = 1538) 126 mg/dL 70-[address] [facility] [address] [facility] [address] [id number] 17:06:00* Test Item Value Reference Range Interpretation Comments THYROID STIMULATING HORMONE (BEAKER) (test code = 772) 1.15 uIU/mL 0.35-4.94 HEMOGLOBIN [id number] 16:43:00* Test Item Value Reference Range Interpretation Comments HEMOGLOBIN A1C (BEAKER) (test code = 368) 7.9 % 4.3-6.1 H ALPHA FETOPROTEIN (AFP), TUMOR [id number] 15:18:00* Test Item Value Reference Range Interpretation Comments ALPHA-FETOPROTEIN (BEAKER) (test code = 1094) 3.6 ng/mL <10.0 Effective 03/24/2014: Reference Range ChangeNew: <10.0 Previous: 0.0-8.0BASIC METABOLIC [id number] 14:57:00* Test Item Value Reference Range Interpretation Comments SODIUM (BEAKER) (test code = 381) 137 meq/L 136-145 POTASSIUM (BEAKER) (test code = 379) 3.4 meq/L 3.5-5.1 L CHLORIDE (BEAKER) (test code = 382) 103 meq/L 98-107 CO2 (BEAKER) (test code = 355) 25 meq/L 22-29 BLOOD UREA NITROGEN (BEAKER) (test code = 354) 9 mg/dL 7-21 CREATININE (BEAKER) (test code = 358) 0.79 mg/dL 0.57-1.25 GLUCOSE RANDOM (BEAKER) (test code = 652) 216 mg/dL 70-105 H CALCIUM (BEAKER) (test code = 697) 9.2 mg/dL 8.4-10.2 EGFR (BEAKER) (test code = 1092) 75 mL/min/1.73 sq m ESTIMATED GFR IS NOT ACCURATE CREATININE CLEARANCE IN PREDICTING GLOMERULAR FILTRATION RATE. ESTIMATED GFR IS NOT APPLICABLE FOR DIALYSIS PATIENTS. Specimen slightly ictericLIPID [id number] 14:57:00* Test Item Value Reference Range Interpretation Comments TRIGLYCERIDES (BEAKER) (test code = 540) 54 mg/dL CHOLESTEROL (BEAKER) (test code = 631) 146 mg/dL HDL CHOLESTEROL (BEAKER) (test code = 976) 62 mg/dL LDL CHOLESTEROL CALCULATED (BEAKER) (test code = 633) 73 mg/dL Triglyceride Reference Range: Low Risk <150 Borderline 150-199 High Risk 200-499 Very High Risk >=500Cholesterol Reference Range: Low Risk <200 Borderline 200-239 High Risk >240HDL Cholesterol Reference Range: Low Risk >=60 High Risk <40LDL Cholesterol Reference Range: Optimal <100 Near Optimal 100-129 Borderline 130-159 High 160-189 Very High >=190 Specimen slightly ictericHEPATIC FUNCTION [id number] 14:57:00* Test Item Value Reference Range Interpretation Comments TOTAL PROTEIN (BEAKER) (test code = 770) 7.3 gm/dL 6.0-8.3 ALBUMIN (BEAKER) (test code = 1145) 3.6 g/dL 3.5-5.0 BILIRUBIN TOTAL (BEAKER) (test code = 377) 3.4 mg/dL 0.2-1.2 H BILIRUBIN DIRECT (BEAKER) (test code = 706) 1.2 mg/dL 0.1-0.5 H ALKALINE PHOSPHATASE (BEAKER) (test code = 346) 137 U/L 40-150 AST (SGOT) (BEAKER) (test code = 353) 35 U/L 5-34 H ALT (SGPT) (BEAKER) (test code = 347) 28 U/L 6-55 Specimen slightly ictericGAMMA GLUTAMYL TRANSFERASE (GGT)2016-07-12 14:57:00* Test Item Value Reference Range Interpretation Comments GAMMA GLUTAMYL TRANSFERASE (BEAKER) (test code = 364) 99 U/L 9-64 H Specimen slightly ictericCBC W/PLT COUNT & AUTO [id number] 14:54:00 * Test Item Value Reference Range Interpretation Comments WHITE BLOOD CELL COUNT (BEAKER) (test code = 775) 4.0 K/ L 4.0- 10.0 RED BLOOD CELL COUNT (BEAKER) (test code = 761) 4.57 M/ L 4.00-5 .00 HEMOGLOBIN (BEAKER) (test code = 410) 14.1 GM/DL 12.0-15.0 HEMATOCRIT (BEAKER) (test code = 411) 40.1 % 36.0-45.0 MEAN CORPUSCULAR VOLUME (BEAKER) (test code = 753) 87.8 fL 82. 0-99.0 MEAN CORPUSCULAR HEMOGLOBIN (BEAKER) (test code = 751) 30.9 pg 27.0-33.0 MEAN CORPUSCULAR HEMOGLOBIN CONC (BEAKER) (test code = 752) 35.2 GM/DL 32.0-36.0 RED CELL DISTRIBUTION WIDTH (BEAKER) (test code = 412) 13.4 % 10.3-14.2 PLATELET COUNT (BEAKER) (test code = 756) 47 K/CU MM 150-430 L MEAN PLATELET VOLUME (BEAKER) (test code = 754) 10.8 fL 6.5-10 .5 H NUCLEATED RED BLOOD CELLS (BEAKER) (test code = 413) 0 /100 WBC 0 -0 NEUTROPHILS RELATIVE PERCENT (BEAKER) (test code = 429) 59 % LYMPHOCYTES RELATIVE PERCENT (BEAKER) (test code = 430) 29 % MONOCYTES RELATIVE PERCENT (BEAKER) (test code = 431) 7 % EOSINOPHILS RELATIVE PERCENT (BEAKER) (test code = 432) 3 % BASOPHILS RELATIVE PERCENT (BEAKER) (test code = 437) 1 % NEUTROPHILS ABSOLUTE COUNT (BEAKER) (test code = 670) 2.36 K/ L 1.80-8.00 LYMPHOCYTES ABSOLUTE COUNT (BEAKER) (test code = 414) 1.17 K/ L 1.48-4.50 L MONOCYTES ABSOLUTE COUNT (BEAKER) (test code = 415) 0.29 K/ L 0. 00-1.30 EOSINOPHILS ABSOLUTE COUNT (BEAKER) (test code = 416) 0.14 K/ L 0.00-0.50 BASOPHILS ABSOLUTE COUNT (BEAKER) (test code = 417) 0.04 K/ L 0. 00-0.20 0.00PROTHROMBIN TIME/[id number] 14:45:00* Test Item Value Reference Range Interpretation Comments PROTIME (BEAKER) (test code = 759) 15.1 seconds 11.7-14.7 H INR (BEAKER) (test code = 370) 1.2 <=5.9 RECOMMENDED COUMADIN/WARFARIN INR THERAPY RANGESSTANDARD DOSE: 2.0 - 3.0 Inclu jamshid: PROPHYLAXIS for venous thrombosis, systemic embolization; TREATMENT for devyn ous thrombosis and/or pulmonary embolus.HIGH RISK: Target INR is 2.5-3.5 for pat ients with mechanical heart valves.ABDOMEN-1VIEW (TYRELL) [place] [address] Patient Name: DELORES KATE MR #: [id number] : 1955 Age/Sex: 61/F Req #: [id number] Adm Physician: JUNI DEAL MD Ordered by: RAUL SIMON MD Report #: [id number] Location: MED/SURG2 Room/Bed: [facility] Procedure: [id number] DX/ABD OMEN-1VIEW (KUB) Exam Date: 09/11/17 Exam Time: 0530 REPORT STATUS: Signed ABDOMEN-1VIEW (KUB) Clinical history: Small bowel obstruction Technique: AP view abdomen Comparison: 09/10/2017 Find ings: No dilated loops of small or large bowel. Mild to moderate stool is seen in the colon. Right upper quadrant clips. Impression: Nonobstructive b owel gas pattern. Signed by: Dr Deborah Amaya MD on 09/11/2017 6:33 AM Dictated By: DEBORAH AMAYA MD 2 Transcribed By: SALVADOR on 09/11/17632 COPY TO: RAUL SIMON MD ABDOMEN-1VIEW (KU) [place] [address] Patient Name: DELORES KATE MR #: [id number] : 1955 Age/Sex: 61/F Req #: [id number] Adm Physician: JUNI DEAL MD Ordered by: RAUL SIMON MD Report #: [id number] Location: MED/SURG2 Room/Bed: [facility] Procedure: [id number] DX/ABD OMEN-1VIEW (KUB) Exam Date: Exam Time: T STATUS: Signed EXAM: ABDOMEN-1VIEW (KUB), supine INDICATION: Small bowel obstruction COMPARISON: None FINDINGS: LINES/TUBES: None BOWEL PA TTERN: No evidence for obstruction. SOFT TISSUES: Surgical clips right uppe r quadrant of the abdomen. BONES: No acute findings. IMPRESSION: Non obstructive bowel gas pattern. Signed by: Dr. Fernando Roman M.D. on 09/10/2017 6:07 AM Dictated By: FERNANDO ROMAN MD Transcribed By: SALVADOR on 606 COPY TO: RAUL SIMON MD CHEST SINGLE (NOT PORTABLE) [place] [address] Patient Name: DELORES KATE MR #: [id number] : 1955 Age/Sex: 61/F Req #: [id number] Adm Physician: Ordered by: LM PINTO MD Report #: [id number] Location: ER Room/Bed: Procedure: [id number] DX/CHEST SINGLE (NOT P ORTABLE) Exam Date: Exam Time: REPORT STATUS : Signed EXAM: CHEST SINGLE (NOT PORTABLE), AP 1 view INDICATION: Severe ab dominal pain COMPARISON: None FINDINGS: LINES/TUBES: None LUNGS: N o consolidations or edema. PLEURA: No effusions or pneumothorax. HEAR T AND MEDIASTINUM: Normal size and contour. BONES AND SOFT TISSUES: No acut e findings. IMPRESSION: No acute thoracic abnormality. Signed by: Dr. Fernando Roman M.D. on 09/08/2017 8:06 PM Dictated By: FERNANDO TALAMANTES MD 05 Transcri bed By: SALVADOR on 09/08/172005 COPY TO: LM PINTO MD CT ABDOMEN/PELVIS W [place] [address] Patient Name: DELORES KATE MR #: [id number] : 1955 Age/Sex: 61/F Req #: [id number] Adm Physician: Ordered by: LM PINTO MD Report #: [id number] Location: Room/Bed: Procedure: [id number] CT/CT ABDOMEN/PELVIS W Exam Date: Exam Time: REPORT STATUS: Signed EXAM: CT ABDOMEN AND PELVIS with IV CONTRAST DATE: 09/08/2017 7:27 PM Time stamp on Exam: 2152 hours INDICATION: Diffuse abdominal pain COMPARISON: C T abdomen and pelvis November 19, 2016 TECHNIQUE: The abdomen and pelvis were scan hector using a multidetector helical scanner. Coronal and sagittal reformations w ere obtained. Routine protocol performed. IV Contrast: 100 cc Isovue-370 O ral Contrast: Water CTDIvol has been reviewed. It is below the limits set by [facility] Radiation Protocol Committee (RPC). FINDINGS: LOWER THORAX: Small ri ght pleural effusion with adjacent atelectasis. LIVER: Cirrhotic liver morp hology. BILIARY: Cholecystectomy without abnormal ductal dilation. SPLEE N: Splenomegaly PANCREAS: No masses ADRENALS: No nodules KIDNEYS: Symme tric perfusion. No enhancing masses. No hydronephrosis. GI TRACT: Dilated l oops of small bowel up to 5 cm with evidence of bowel stagnation at the level of prior small bowel to small bowel anastomotic site. Normal appearance of the colon. VESSELS: Dilation of the portal system, which is patent. Multiple s plenic, esophageal and gastric varices. PERITONEUM/RETROPERITONEUM: No free air or fluid LYMPH NODES: No lymphadenopathy REPRODUCTIVE ORGANS: Uterus and ovaries are not visualized. BLADDER: Unremarkable SOFT TISSUES: Surgi suzanne changes of ventral hernia repair. BONES: No suspicious bone lesions. IMPRESSION: Partial small bowel obstruction with transition at prior small bow el surgery site in the anterior mid abdomen. 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 Signed by: Dr. Fernando Roman M.D. on 09/08/2017 10:11 PM Dictated By: FERNANDO ROMAN MD 10 Transcribed By: SALVADOR on 2210 COPY TO: LM PINTO MD
--- OUTSIDE RECORDS SUMMARY | 2020-02-01 16:11 | XMS REPORT | Continuity of Care Document ---
Author Author [facility] t Organization [facility] Address [address] [place] [address] Phone Unavailable Care Team Providers Care Building Pressure Washer Name Role Phone ERIN DUENAS MD PCP JUNI DEAL Attphys Unavailable SWEET, A LAIRD Attphys Unavailable QUIN, EBONY Attphys Unavailable MANEEVESE, V COY Attphys Unavailable MINDIKOGLU, BATSHEVA NEENA Attphys Unavailable REINALDO, J RISE Attphys Unavailable SAY, JUNI Admphys Unavailable MINDIKOGLU, BATSHEVA NEENA Admphys Unavailable Payers Payer Name Policy Type Policy Number Effective Date Expiration Date S [employer] [facility] [employer] [facility] [id number] 2011 00:00 :00 [facility] Problems Condition Name Condition Details Condition Category Status Onset Date Resolution Date Last Treatment Date Treating Clinician Comments Source Screening for malignant neoplasm Screening for malignant neoplas m Disease Active 2013-07-07 00:00:00 [facility] Pleural effusion Pleural effusion Disease Active 2013-03-28 00:00:00 [facility] Ascites Ascites Disease Active 2013-03-28 00:00:00 [facility] Hernia, incisional Hernia, incisional Disease Active 2013-03-28 00:00:0 0 [facility] Cirrhosis Cirrhosis Disease Active 2013-03-28 00:00:00 [facility] Obesity Obesity Disease Active 2013-03-28 00:00:00 [facility] Diabetes mellitus, type 2 Diabetes mellitus, type 2 Disease Ac tive 2013-03-28 00:00:00 Overview: ICD9 DX 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 [facility] COPD (chronic obstructive pulmonary disease) COPD (chr onic obstructive pulmonary disease) Disease Active 2013-03-28 00:00:00 [facility] Encephalopathy, portal systemic Encephalopathy, portal systemic Dis ease Active 2013-03-28 00:00:00 Overview: ICD9 DX Rep lacer [facility] Steatosis of liver Steatosis of liver Disease Active 2013-03-28 00:00:0 0 [facility] Nausea Nausea Disease Active 2013-03-28 00:00:00 [facility] Headache Headache Disease Active 2013-03-28 00:00:00 [facility] SOB (shortness of breath) SOB (shortness of breath) Disease Ac tive 2013-03-28 00:00:00 [facility] Myalgia Myalgia Disease Active 2013-03-28 00:00:00 [facility] Fatigue Fatigue Disease Active 2013-03-28 00:00:00 [facility] Anemia Anemia Disease Active 2013-03-28 00:00:00 [facility] Bleeding disorder Bleeding disorder Disease Active 2013-03-28 00:00:00 [facility] Bleeding nose Bleeding nose Disease Active 2013-03-28 00:00:00 [facility] Confusion Confusion Problem Active [facility] Pancreatitis Pancreatitis Problem Active [facility] Partial small bowel obstruction Partial small bowel obstruction Pro blem Active [facility] Urinary tract infection UTI (urinary tract infection) Problem Active [facility] Allergies, Adverse Reactions, Alerts Allergy Name Allergy Type Status Severity Reaction(s) Onset Date Inacti ve Date Treating Clinician Comments Source NSAIDS (Non-Steroidal Anti-Inflamma Allergy to Substance Active 2018-07-22 00:00:00 [facility] Glipizide Allergy to Substance Active 2018-07-22 00:00:00 [facility] Morphine Propensity to adverse reactions Active Mild NAUSEA 2018-07-22 00:00:00 [facility] Codeine Allergy to Substance Active Mild 2018-07-22 00:00:00 [facility] Hydrocodone Allergy to Substance Active Mild 2018-07-22 00:00:00 [facility] Acetaminophen Allergy to Substance Active Mild 2018-07-22 00:00: 00 [facility] Naproxen Allergy to Substance Active Mild 2018-07-22 00:00:00 [facility] Metformin Allergy to Substance Active 2018-07-22 00:00:00 [facility] Meperidine Allergy to Substance Active Mild 2018-07-22 00:00:00 [facility] Morphine Drug Allergy Active Nausea And Vomiting, Rash 00:00:00 [facility] [place] Codeine Propensity to adverse reactions Active 2013-03-28 0 0:00:00 [facility] Meperidine Propensity to adverse reactions Active 2013-03-08 2 00:00:00 [facility] Naproxen Propensity to adverse reactions Active 2013-03-28 00:00:00 [facility] Hydrocodone-Acetaminophen Propensity to adverse reactions Active 2013-03-28 00:00:00 [facility] Social History Social Habit Start Date Stop Date Quantity Comments Source Sex Assigned At [facility] Tobacco Comment 2016-08-16 00:00:00 2016-08-16 00:00:00 smokes e ciga rettes [facility] Smoking Status Start Date Stop Date Source Never smoker [facility] Medications Ordered Medication Name Filled Medication Name Start Date Stop Da te Current Medication? Ordering Clinician Indication Dosage Frequency Signature (SIG) Comments Components Source magnesium 30 mg tablet 2016-08-16 17:07:39 Yes 30mg Q.5D Take 30 mg by mouth 2 (two) times daily. [facility] insulin glargine (LANTUS) 100 unit/mL injection 2016-02-01 13:00 :13 Yes 8U Q.5D Inject 8 Units subcutaneously 2 (two) times daily Use as directed. [facility] furosemide (LASIX) 40 MG tablet 2013-09-22 08:44:46 Yes 20mg Q.5D Take 20 mg by mouth 2 (two) times daily. [facility] lactulose (CHRONULAC) 10 gram/15 mL (15 mL) solution 2 00:00:00 Yes 20g Q.[id number] Take 30 mLs (20 g total) by mouth 3 (three) times daily. [facility] pregabalin (LYRICA) 75 MG capsule 2013-03-28 11:57:49 Yes 75mg QD Take 75 mg by mouth daily. [facility] saxagliptin 5 mg Tab 2013-03-28 11:57:49 Yes 5mg QD Take 5 mg by mouth daily. [facility] ursodiol (ACTIGALL) 300 mg capsule 2013-03-28 11:57:49 Y es 300mg Q.[id number] Take 300 mg by mouth 3 (three) times daily. [facility] esomeprazole (NEXIUM) 40 MG capsule 2013-03-28 11:57:49 Yes 40mg QD Take 40 mg by mouth daily. [facility] sucralfate (CARAFATE) 1 g tablet 2013-03-28 11:57:49 Yes 1g Q.25D Take 1 g by mouth 4 (four) times daily. [facility] traMADol (ULTRAM) 50 mg tablet 2013-03-28 11:57:49 Yes 50mg Take 50 mg by mouth every 6 (six) hours as needed. [facility] vitamin E 400 UNIT capsule 2013-03-28 11:57:49 Yes 400U Q.5D Take 400 Units by mouth 2 (two) times daily. [facility] spironolactone (ALDACTONE) 100 MG tablet 2013-03-28 11:57:48 Yes 100mg QD Take 100 mg by mouth daily. [facility] potassium chloride (KLOR-CON) 10 MEQ CR tablet 2013-03-28 11:57: 48 Yes 20meq Q.5D Take 20 mEq by mouth 2 (two) times daily. [facility] calcium carbonate (TUMS) 500 mg chewable tablet 2013-03-28 11:57 :48 Yes 1{tbl} QD Take 1 tablet by mouth daily. [facility] dicyclomine (BENTYL) 20 mg tablet 2013-03-28 11:57:48 Yes 20mg Take 20 mg by mouth every 6 (six) hours. [facility] Albuterol Sulfate 0.63 Mg/3 Ml Vial.neb Albuterol Sulfate 0. 63 Mg/3 Ml Vial.neb Yes 1 Every 4 Hours [facility] Albuterol Sulfate (Ventolin Hfa) 18 Gm Hfa.aer.ad Albu terol Sulfate (Ventolin Hfa) 18 Gm Hfa.aer.ad Yes 90 As Needed [facility] Fe Fumarate/Fa/Mv, Min Comb#15 (Hemocyte Plus Capsule) 1 Each Capsule Fe Fumarate/Fa/Mv, Min Comb#15 (Hemocyte Plus Capsule) 1 Each Capsule Yes 1 Daily [facility] Furosemide (Lasix) 40 Mg Tablet Furosemide (Lasix) 40 Mg Tablet Yes 40 Twice A Day [facility] Insulin Glargine (Lantus 3ML Pen) 100 Units/1 Ml Inj I nsulin Glargine (Lantus 3ML Pen) 100 Units/1 Ml Inj Yes 8 Twice Pop y With Meals [facility] Lactulose 20 Gm/30 Ml Solution Lactulose 20 Gm/30 Ml Solution Yes 15 Daily [facility] Lisinopril 10 Mg Tablet Lisinopril 10 Mg Tablet Yes 20 Bedtime [facility] Methimazole 10 Mg Tablet Methimazole 10 Mg Tablet Yes 2 Daily [facility] Methocarbamol (Robaxin-750) 750 Mg Tablet Methocarbamo l (Robaxin-750) 750 Mg Tablet Yes 500 Bedtime [facility] Ondansetron (Zofran Odt) 4 Mg Tab.rapdis Ondansetron ( Zofran Odt) 4 Mg Tab.rapdis Yes 4 Twice A Day as needed for N ausea And Vomiting [facility] Rifaximin (Xifaxan) 550 Mg Tablet Rifaximin (Xifaxan) 550 Mg Tablet Yes 1 Twice A Day [facility] Spironolactone (Aldactone) 25 Mg Tablet Spironolactone (Kristine ctone) 25 Mg Tablet Yes 50 Daily [facility] Tramadol Hcl (Ultram 50MG*) 50 Mg Tab Tramadol Hcl (Ultram 50MG*) 5 0 Mg Tab Yes Every 6 Hours [facility] Ursodiol 300 Mg Capsule Ursodiol 300 Mg Capsule Yes 1 Three Times A Day [facility] Meloxicam 7.5 Mg Tablet, 15 Mg Oral Meloxicam 7.5 Mg Tablet, 15 Mg Oral 2017-09-13 00:00:00 No 15 Daily [facility] Spironolactone 25 Mg Tablet, 50 Mg Oral Spironolactone 25 Mg Tablet, 50 Mg Oral 2017-09-13 00:00:00 No 50 Daily [facility] Gabapentin 300 Mg Capsule, 300 Mg Oral Gabapentin 300 Mg Capsule , 300 Mg Oral 2016-11-21 00:00:00 No 300 Twice A Day [facility] Meloxicam 7.5 Mg Tablet, 15 Mg Oral Meloxicam 7.5 Mg Tablet, 15 Mg Oral 2016-11-21 00:00:00 No 15 Daily [facility] Methocarbamol 750 Mg Tablet, 500 Mg Oral Methocarbamol 750 Mg Tablet, 500 Mg Oral 2016-11-21 00:00:00 No 500 Bedtime [facility] Tramadol Hcl (Ultram 50MG*) 50 Mg Tab, 50 Mg Oral Tram adol Hcl (Ultram 50MG*) 50 Mg Tab, 50 Mg Oral 2016-11-21 00:00:00 No 50 Every 6 Hours as needed for Pain [facility] Furosemide (Lasix) 40 Mg Tablet, 40 Mg Oral Furosemide (Lasix) 40 Mg Tablet, 40 Mg Oral 2016-08-05 00:00:00 No 40 Twice A Day [facility] Levofloxacin (Levaquin) 500 Mg Tablet, 500 Mg Oral Lev ofloxacin (Levaquin) 500 Mg Tablet, 500 Mg Oral 2016-08-05 00:00:00 No 500 D aily [facility] Procedures Procedure Date / Time Performed Performing Clinician [facility] e X-ray of chest, two views 2019-07-11 00:00:00 SHORT, SIM D C [facility] Encounters Start Date/Time End Date/Time Encounter Type Admission Type [facility] Care Department Encounter ID Source 2019-07-11 11:48:00 2019-07-11 15:07:00 Departed Emergency Room 1 CHUCK WELLS [facility] [id number] [facility] 2019-01-18 18:46:00 2019-01-18 21:22:00 Departed Emergency Room [facility] [id number] [facility] 2018-12-03 13:35:00 2018-12-03 15:28:00 Departed Emergency Room 1 EBONY TSAI [facility] [id number] [facility] 2018-07-22 15:27:00 2018-07-22 18:56:00 Departed Emergency Room 1 COY ENNIS [facility] [id number] [facility] 2017-09-08 23:39:00 2017-09-13 11:15:00 Discharged Inpatient ER JUNI DEAL [facility] [id number] [facility] 2016-11-18 23:55:00 2016-11-21 19:03:00 Discharged Inpatient [facility] [id number] [facility] Results Test Description Test Time Test Comments Results Result Comments Source CT CHEST W 2020-01-30 11:11:00 [place] [address] Patient Name: DELORES KATE MR #: [id number] : 1955 Age/Sex: 64/F Req #: [id number] Adm Physician: JUNI DEAL MD Ordered by: CHUCK WELLS MD Report #: [id number] Location: [facility] Room/Bed: [place] [address] Procedure: [id number] CT/CT CHEST W Exam Date: 01/30/20 Exam [...] MD on 01/30/2020 11:15 AM Dictated By: AINSLEY CARRASQUILLO MD 14 Transcribed By: SALVADOR on 01/30/20 111 COPY TO: CHUCK WELLS MD Sodium Level 2019-07-11 14:14:00 Test Item Sodium Level (test code = 2951-2) 135 136-145 L [facility]assium [id number] 14:14:00* Test Item Value Reference Range Interpretation Comments Potassium Level (test code = 2823-3) 3.6 3.5-5.1 [facility] TexasChloride [id number] 14:14:00* Test Item Value Reference Range Interpretation Comments Chloride Level (test code = 2075-0) 102 98-107 [facility] TexasCarbon Dioxide [id number] 14:14:00* Test Item Value Reference Range Interpretation Comments Carbon Dioxide Level (test code = 2028-9) 27 22-29 [facility] TexasAnion [id number] 14:14:00* Test Item Value Reference Range Interpretation Comments Anion Gap (test code = 52495-1) 9.6 8-16 [facility] TexasBlood Urea [id number] 14:14:00* Test Item Value Reference Range Interpretation Comments Blood Urea Nitrogen (test code = 3094-0) 5 7-26 L [facility] TexasCreatinine2020-03-06 14:14:00* Test Item Value Reference Range Interpretation Comments Creatinine (test code = 2160-0) 0.81 0.57-1.11 [facility] TexasBUN/Creatinine [id number] 14:14:00* Test Item Value Reference Range Interpretation Comments BUN/Creatinine Ratio (test code = 3097-3) 6 6-25 [facility] TexasEstimat Glomerular Filtration Rate 2019-07-11 14:14:00* Test Item Value Reference Range Interpretation Comments Estimat Glomerular Filtration Rate (test code = 218396530) > 60 >60 Ranges were taken from the National Kidney Disease Education Program and the [facility] literature.Reference ranges:60 or greater: Kitazf13-58 ( for 3 consecutive months): Chronic kidney disease 15 or less: Kidney failureDell [facility] of TexasGlucose Hmatd9457-90-25 14:14:00* Test Item Value Reference Range Interpretation Comments Glucose Level (test code = UDO8706) 338 74-118 H [facility] TexasCalcium [id number] 14:14:00* Test Item Value Reference Range Interpretation Comments Calcium Level (test code = 97510-5) 8.7 8.4-10.2 [facility] TexasTotal Umnfemquq3963-60-16 14:14:00* Test Item Value Reference Range Interpretation Comments Total Bilirubin (test code = 1975-2) 3.7 0.2-1.2 H [facility] TexasAspartate Amino Transf (AST/SGOT) 2019-07-11 14:14:00* Test Item Value Reference Range Interpretation Comments Aspartate Amino Transf (AST/SGOT) (test code = Aspartate Amino Transf (AST/SGOT)) 35 5-34 H [facility] TexasAlanine Aminotransferase (ALT/SGPT) 2019-07-11 14:14:00* Test Item Value Reference Range Interpretation Comments Alanine Aminotransferase (ALT/SGPT) (test code = 1742-6) 24 0-55 [facility] TexasTotal Znhjfyo7657-17-45 14:14:00* Test Item Value Reference Range Interpretation Comments Total Protein (test code = 2885-2) 6.4 6.5-8.1 L [facility] TexasAlbumin2020-03-06 14:14:00* Test Item Value Reference Range Interpretation Comments Albumin (test code = 1751-7) 2.9 3.5-5.0 L [facility] TexasGlobulin2020-03-06 14:14:00* Test Item Value Reference Range Interpretation Comments Globulin (test code = 69169-0) 3.5 2.3-3.5 [facility] TexasAlbumin/Globulin [id number] 14:14:00 * Test Item Value Reference Range Interpretation Comments Albumin/Globulin Ratio (test code = 1759-0) 0.8 0.8-2.0 [facility] TexasAlkaline Wwrtejqkbph4914-85-51 14:14:00* Test Item Value Reference Range Interpretation Comments Alkaline Phosphatase (test code = 6768-6) 166 40-150 H [facility] TexasB-Type Natriuretic Ykyuhtx5430-68-17 14:14:00* Test Item Value Reference Range Interpretation Comments B-Type Natriuretic Peptide (test code = 93608-3) 99.7 0-100 [facility] TexasCreatine Txnqmb1707-07-31 14:14:00* Test Item Value Reference Range Interpretation Comments Creatine Kinase (test code = 2157-6) 143 29-168 [facility] TexasCreatine Kinase [id number] 14:14:00* Test Item Value Reference Range Interpretation Comments Creatine Kinase MB (test code = 34613-7) 4.20 0-5.0 [facility] TexasTroponin [id number] 14:14:00* Test Item Value Reference Range Interpretation Comments Troponin I (test code = CAI9779) 0.010 0-0.300 [facility] TexasInfluenza Virus Types A,B Antigen 2019-07-11 13:56:00* Test Item Value Reference Range Interpretation Comments Influenza Virus Types A,B Antigen (test code = 04564-0) NEGATIVE NEGATIVE [facility] TexasProthrombin [id number] 13:45:00* Test Item Value Reference Range Interpretation Comments Prothrombin Time (test code = 5902-2) 16.1 11.9-14.5 H [facility] TexasProthromb Time International Ratio 2019-07-11 13:45:00* Test Item Value Reference Range Interpretation Comments Prothromb Time International Ratio (test code = 6301-6) 1.21 Oral Anticoagulant Therapy INR Values:1. Low Intensity Therapy 1.5 - 2.02 . Moderate Intensity Therapy 2.0 - 3.03. High Intensity Therapy(1) 2.5 - 3. 54. High Intensity Therapy(2) 3.0 - 4.05. Panic Value INR > 5.0 [facility] TexasActivated Partial Thromboplast Time 2019-07-11 13:45:00* Test Item Value Reference Range Interpretation Comments Activated Partial Thromboplast Time (test code = 45089-2) 30.4 23.8-35.5 [facility] TexasWhite Blood Gzman9219-10-17 13:43:00* Test Item Value Reference Range Interpretation Comments White Blood Count (test code = 6690-2) 3.90 4.8-10.8 L [facility] TexasRed Blood Ybwhh5629-28-25 13:43:00* Test Item Value Reference Range Interpretation Comments Red Blood Count (test code = 789-8) 5.08 3.6-5.1 [facility] TexasHemoglobin2020-03-06 13:43:00* Test Item Value Reference Range Interpretation Comments Hemoglobin (test code = 19117-9) 14.7 12.0-16.0 [facility] TexasHematocrit2020-03-06 13:43:00* Test Item Value Reference Range Interpretation Comments Hematocrit (test code = 4544-3) 41.8 34.2-44.1 [facility] TexasMean Corpuscular Zoaobm4581-33-70 13:43:00* Test Item Value Reference Range Interpretation Comments Mean Corpuscular Volume (test code = 787-2) 82.3 81-99 [facility] TexasMean Corpuscular Fcxzbllvnh3038-32-21 13:43:00* Test Item Value Reference Range Interpretation Comments Mean Corpuscular Hemoglobin (test code = 785-6) 28.9 28-32 [facility] TexasMean Corpuscular Hemoglobin Concent 2019-07-11 13:43:00* Test Item Value Reference Range Interpretation Comments Mean Corpuscular Hemoglobin Concent (test code = 786-4) 35.2 31-35 H [facility] TexasRed Cell Distribution Remsi2935-82-63 13:43:00* Test Item Value Reference Range Interpretation Comments Red Cell Distribution Width (test code = 75370-8) 14.3 11.7 -14.4 [facility] TexasPlatelet Qzwot0795-11-58 13:43:00* Test Item Value Reference Range Interpretation Comments Platelet Count (test code = 777-3) 41 140-360 LL Results repeated and called to [JULIANNA TIDWELL RN] at 1341 on 07/11/19 by Kaylene Li. Read back and verified.[facility] Neutrophils (%) (Auto)2019-07-11 13:43:00* Test Item Value Reference Range Interpretation Comments Neutrophils (%) (Auto) (test code = 56430-0) 60.7 38.7-80.0 [facility] TexasLymphocytes (%) (Auto)2019-07-11 13:43:00 * Test Item Value Reference Range Interpretation Comments Lymphocytes (%) (Auto) (test code = 736-9) 21.0 18.0-39.1 [facility] TexasMonocytes (%) (Auto)2019-07-11 13:43:00* Test Item Value Reference Range Interpretation Comments Monocytes (%) (Auto) (test code = 5905-5) 8.2 4.4-11.3 [facility] TexasEosinophils (%) (Auto)2019-07-11 13:43:00 * Test Item Value Reference Range Interpretation Comments Eosinophils (%) (Auto) (test code = 713-8) 9.0 0.0-6.0 H [facility] TexasBasophils (%) (Auto)2019-07-11 13:43:00* Test Item Value Reference Range Interpretation Comments Basophils (%) (Auto) (test code = 706-2) 0.8 0.0-1.0 [facility] TexasIM GRANULOCYTES %2019-07-11 13:43:00* Test Item Value Reference Range Interpretation Comments IM GRANULOCYTES % (test code = IM GRANULOCYTES %) 0.3 0.0- 1.0 [facility] TexasNeutrophils # (Auto)2019-07-11 13:43:00* Test Item Value Reference Range Interpretation Comments Neutrophils # (Auto) (test code = 751-8) 2.4 2.1-6.9 [facility] TexasLymphocytes # (Auto)2019-07-11 13:43:00* Test Item Value Reference Range Interpretation Comments Lymphocytes # (Auto) (test code = 00465-5) 0.8 1.0-3.2 L [facility] TexasMonocytes # (Auto)2019-07-11 13:43:00* Test Item Value Reference Range Interpretation Comments Monocytes # (Auto) (test code = 742-7) 0.3 0.2-0.8 [facility] TexasEosinophils # (Auto)2019-07-11 13:43:00* Test Item Value Reference Range Interpretation Comments Eosinophils # (Auto) (test code = 711-2) 0.4 0.0-0.4 [facility] TexasBasophils # (Auto)2019-07-11 13:43:00* Test Item Value Reference Range Interpretation Comments Basophils # (Auto) (test code = 704-7) 0.0 0.0-0.1 [facility] TexasAbsolute Immature Granulocyte (auto 2019-07-11 13:43:00* Test Item Value Reference Range Interpretation Comments Absolute Immature Granulocyte (auto (ga t code = Absolute Immature Granulocyte (auto) 0.01 0-0.1 [facility] TexasCHEST 2 [id number] 13:09:00 [place] [address] Patient Name: DELORES KATE MR #: [id number] : 1955 Age/Sex: 63/F Req #: [id number] Adm Physician: Ordered by: [employer] REPRESENTATIVE Report #: [id number] Location: ER Room/Bed: Procedure: [id number] DX/CHEST 2 VIEWS Exam Date: 07/11/19 Exam [...] on 07/11/19 1310 COPY TO: [employer] REPRESENTATIVE Urine [id number] 20:08:00* Test Item Value Reference Range Interpretation Comments Urine WBC (test code = 5821-4) 0-5 0-5 [facility] TexasU[facility] EUB5535-54-34 20:08:00* Test Item Value Reference Range Interpretation Comments Urine RBC (test code = 04322-0) 6-10 0-5 H [facility] TexasU[facility] Gnrvrure6559-88-46 20:08:00* Test Item Value Reference Range Interpretation Comments Urine Bacteria (test code = 16759-0) MANY NONE H [facility] TexasUrine Epithelial Amfez2093-84-75 20:08:00 * Test Item Value Reference Range Interpretation Comments Urine Epithelial Cells (test code = 74079-1) RARE NONE [facility] TexasUrine OYO6222-25-36 20:08:00* Test Item Value Reference Range Interpretation Comments Urine WBC (test code = 5821-4) 0-5 0-5 [facility] TexasU[facility] LLF8402-61-46 20:08:00* Test Item Value Reference Range Interpretation Comments Urine RBC (test code = 48288-5) 6-10 0-5 H [facility] TexasU[facility] Iiszrbip2939-22-19 20:08:00* Test Item Value Reference Range Interpretation Comments Urine Bacteria (test code = 39476-6) MANY NONE H [facility] TexasU[facility] Epithelial Ybbpq0089-42-17 20:08:00 * Test Item Value Reference Range Interpretation Comments Urine Epithelial Cells (test code = 90150-7) RARE NONE [facility] TexasU[facility] Ttsve9872-85-03 19:53:00* Test Item Value Reference Range Interpretation Comments Urine Color (test code = 5778-6) YELLOW YELLOW [facility] TexasU[facility] Ceiiogg3757-71-52 19:53:00* Test Item Value Reference Range Interpretation Comments Urine Clarity (test code = 03033-7) CLEAR CLEAR [facility] TexasU[facility] Specific Dyxlmtq2289-57-74 19:53:00 * Test Item Value Reference Range Interpretation Comments Urine Specific [place] (test code = 5811-5) <=1.005 1.010-1.02 5 [facility] TexasU[facility] jW5457-04-75 19:53:00* Test Item Value Reference Range Interpretation Comments Urine pH (test code = 29187-3) 5.5 5-7 [facility] Texas[facility] Leukocyte Ahouwmmo2950-48-40 19:53:00* Test Item Value Reference Range Interpretation Comments Urine Leukocyte Esterase (test code = 88786-8) NEGATIVE NEGATIV E [facility] TexasU[facility] Sxjlomn5763-01-23 19:53:00* Test Item Value Reference Range Interpretation Comments Urine Nitrite (test code = 34576-7) POSITIVE NEGATIVE H [facility] TexasU[facility] Ljwydzh4554-05-07 19:53:00* Test Item Value Reference Range Interpretation Comments Urine Protein (test code = 17956-9) NEGATIVE NEGATIVE [facility] TexasUrine Glucose (UA)2019-01-18 19:53:00* Test Item Value Reference Range Interpretation Comments Urine Glucose (UA) (test code = 98412-7) 3+ NEGATIVE [facility] Texas[facility] Pwdosgd6375-48-34 19:53:00* Test Item Value Reference Range Interpretation Comments Urine Ketones (test code = 61674-6) NEGATIVE NEGATIVE [facility] TexasU[facility] Hzlooxhjdkew2284-29-43 19:53:00* Test Item Value Reference Range Interpretation Comments Urine Urobilinogen (test code = 96100-2) 4 0.2-1 [facility] TexasU[facility] Stpmavtng5693-09-56 19:53:00* Test Item Value Reference Range Interpretation Comments Urine Bilirubin (test code = 1977-8) NEGATIVE NEGATIVE [facility] Lfsjw1020-99-27 19:53:00* Test Item Value Reference Range Interpretation Comments Urine Blood (test code = 88416-3) 1+ NEGATIVE [facility] Texas[facility] Mcokn2236-11-95 19:53:00* Test Item Value Reference Range Interpretation Comments Urine Color (test code = 5778-6) YELLOW YELLOW [facility] Texas[facility] Yfokqzx0933-33-91 19:53:00* Test Item Value Reference Range Interpretation Comments Urine Clarity (test code = 79426-0) CLEAR CLEAR [facility] TexasU[facility] Specific Drpewqy7485-70-99 19:53:00 * Test Item Value Reference Range Interpretation Comments Urine Specific [place] (test code = 5811-5) <=1.005 1.010-1.02 5 [facility] TexasU[facility] oR9106-02-66 19:53:00* Test Item Value Reference Range Interpretation Comments Urine pH (test code = 35952-8) 5.5 5-7 [facility] TexasU[facility] Leukocyte Pzzjhdrz4124-29-19 19:53:00* Test Item Value Reference Range Interpretation Comments Urine Leukocyte Esterase (test code = 26891-4) NEGATIVE NEGATIV E [facility] TexasU[facility] Wdyupcq0711-74-12 19:53:00* Test Item Value Reference Range Interpretation Comments Urine Nitrite (test code = 50846-9) POSITIVE NEGATIVE H [facility] TexasU[facility] Quhisct4663-95-40 19:53:00* Test Item Value Reference Range Interpretation Comments Urine Protein (test code = 35033-2) NEGATIVE NEGATIVE [facility] TexasU[facility] Glucose (UA)2019-01-18 19:53:00* Test Item Value Reference Range Interpretation Comments Urine Glucose (UA) (test code = 50920-6) 3+ NEGATIVE [facility] Texas[facility] Yjjvmqz7583-38-31 19:53:00* Test Item Value Reference Range Interpretation Comments Urine Ketones (test code = 30365-1) NEGATIVE NEGATIVE [facility] Texas[facility] Gkzhffhrgdbu5434-90-12 19:53:00* Test Item Value Reference Range Interpretation Comments Urine Urobilinogen (test code = 12435-6) 4 0.2-1 [facility] Texas[facility] Ckagvitlr1889-21-11 19:53:00* Test Item Value Reference Range Interpretation Comments Urine Bilirubin (test code = 1977-8) NEGATIVE NEGATIVE [facility] TexasU[facility] Dbezo4005-86-02 19:53:00* Test Item Value Reference Range Interpretation Comments Urine Blood (test code = 81282-7) 1+ NEGATIVE [facility] TexasFOOT LEFT JFMOLXYZ2570-86-77 15:07:00 [facility] [address] [place] [address] Patient Name: DELORES KATE MR #: [id number] : 1955 Age/Sex: 63/F Req #: [id number] Adm Physician: Ordered by: SIM MCGILL COMMUNITY REPRESENTATIVE Report #: [id number] Location: ER Room/Bed: Procedure: [id number] DX/FOOT LEFT COMPLETE Exam Date: 12/03/18 Exam [...] OPY TO: SIM MCGILL NP CHEST 2 OXAGI8934-45-18 17:13:00 [place] [address] Patient Name: DELORES KATE MR #: [id number] : 1955 Age/Sex: 62/F Req #: [id number] Adm Physician: Ordered by: COY ENNIS MD Report #: [id number] Location: ER Room/Bed: Procedure: [id number] DX/CHEST [...] BECKMAN MD SCR MAMM BILATERAL MARTELL CAD GKHBYYS7767-38-06 11:28:40 - SCR MAMM BILATERAL MARTELL CAD DIGITALBILATERAL DIGITAL SCREENING MAMMOGRAM 3D/2D WITH CAD: 07/09/2018CLINICAL: Asymptomatic. Digital breast tomosynthesis was pe rformed in addition to routine CC and MLO views. Current mammographic images we re evaluated by either a Mophie M-Vu or a [employer] ImageChecker CAD (computer aid ed detection system). Comparison is made to exams dated 11/26/2012 mammogram, mammogram, and 06/29/2010 mammogram - [facility]. There are scattered fibroglandular tissues in both breasts. No suspicious mass, archi tectural distortion, malignant type calcification, or lymph node abnormality det ected. Breast architecture is stable compared to prior exams.IMPRESSION: NEGATI VEThere is no mammographic evidence of malignancy. Resume annual screening mammo graphy in one year. Ganga Benavides M.D. ss/penrad:07/09/2018 11:28:4 0 Instructional Services Specialist: Jennifer Beard , [facility] sent: BIRADS 1-2 Normal Mammogram BI-RADS: 1 NegativeBedside Tolujur6911-47-30 08:17:00* Test Item Value Reference Range Interpretation Comments Bedside Glucose (test code = 39454-2) 113 70-120 Meter ID: [id number] Regional Hospitalodium Level 2017-09-13 07:40:00* Test Item Value Reference Range Interpretation Comments Sodium Level (test code = 2951-2) 141 136-145 [facility] Vaktp7073-49-21 07:40:00* Test Item Value Reference Range Interpretation Comments Potassium Level (test code = 2823-3) 4.6 3.5-5.1 [facility] TexasChloride Lozuh3089-37-15 07:40:00* Test Item Value Reference Range Interpretation Comments Chloride Level (test code = 2075-0) 106 98-107 [facility] TexasCarbon Dioxide Avmgz3001-91-57 07:40:00* Test Item Value Reference Range Interpretation Comments Carbon Dioxide Level (test code = 2028-9) 28 22-29 [facility] TexasAnion Jel5353-07-26 07:40:00* Test Item Value Reference Range Interpretation Comments Anion Gap (test code = 29699-9) 11.6 8-16 [facility] TexasBlood Urea Najklsat9508-77-75 07:40:00* Test Item Value Reference Range Interpretation Comments Blood Urea Nitrogen (test code = 3094-0) 16 7-26 [facility] TexasCreatinine2018-05-10 07:40:00* Test Item Value Reference Range Interpretation Comments Creatinine (test code = 2160-0) 0.82 0.57-1.11 [facility] TexasBUN/Creatinine Xlsma4972-96-83 07:40:00* Test Item Value Reference Range Interpretation Comments BUN/Creatinine Ratio (test code = 3097-3) 20 6-25 [facility] TexasEstimat Glomerular Filtration Rate 2017-09-13 07:40:00* Test Item Value Reference Range Interpretation Comments Estimat Glomerular Filtration Rate (test code = 32707-2) 60- >60 Ranges were taken from the National Kidney Disease Education Program and the [facility] Kid[facility] Foundation literature.Reference ranges:60 or greater: Pcjvaz12-61 ( for 3 consecutive months): Chronic kidney disease 15 or less: Kidney failureDell [facility] Center at The University of TexasGlucose Urdno3444-19-62 07:40:00* Test Item Value Reference Range Interpretation Comments Glucose Level (test code = TEQ3430) 114 74-118 [facility] TexasCalcium Raqbk5097-93-14 07:40:00* Test Item Value Reference Range Interpretation Comments Calcium Level (test code = 65858-4) 8.8 8.4-10.2 [facility] TexasPhosphorus Pbdox3845-59-33 07:40:00* Test Item Value Reference Range Interpretation Comments Phosphorus Level (test code = HMY5125) 3.6 2.3-4.7 [facility] TexasMagnesium Afoii5466-06-73 07:40:00* Test Item Value Reference Range Interpretation Comments Magnesium Level (test code = 48056-6) 1.7 1.3-2.1 [facility] TexasTotal Ccyylfjpr5313-93-02 07:40:00* Test Item Value Reference Range Interpretation Comments Total Bilirubin (test code = 1975-2) 2.4 0.2-1.2 H [facility] TexasAspartate Amino Transf (AST/SGOT) 2017-09-13 07:40:00* Test Item Value Reference Range Interpretation Comments Aspartate Amino Transf (AST/SGOT) (test code = Aspartate Amino Transf (AST/SGOT)) 60 5-34 H [facility] TexasAlanine Aminotransferase (ALT/SGPT) 2017-09-13 07:40:00* Test Item Value Reference Range Interpretation Comments Alanine Aminotransferase (ALT/SGPT) (test code = 1742-6) 34 0-55 [facility] Lrlnudl7286-43-46 07:40:00* Test Item Value Reference Range Interpretation Comments Total Protein (test code = 2885-2) 5.6 6.5-8.1 L [facility] TexasAlbumin2018-05-10 07:40:00* Test Item Value Reference Range Interpretation Comments Albumin (test code = 1751-7) 2.4 3.5-5.0 L [facility] TexasGlobulin2018-05-10 07:40:00* Test Item Value Reference Range Interpretation Comments Globulin (test code = 25461-8) 3.2 2.3-3.5 [facility] TexasAlbumin/Globulin Mahka5014-01-95 07:40:00 * Test Item Value Reference Range Interpretation Comments Albumin/Globulin Ratio (test code = 1759-0) 0.8 0.8-2.0 [facility] TexasAlkaline Firgzebyxgr0465-66-95 07:40:00* Test Item Value Reference Range Interpretation Comments Alkaline Phosphatase (test code = 6768-6) 119 40-150 [facility] TexasHemoglobin A1c Btpyhxd3361-63-62 07:24:00 * Test Item Value Reference Range Interpretation Comments Hemoglobin A1c Percent (test code = Hemoglobin A1c Percent) 7.2 4.0-7.0 H [facility] TexasUrine DZE9862-59-09 18:40:00* Test Item Value Reference Range Interpretation Comments Urine WBC (test code = 5821-4) 0-5 0-5 [facility] TexasUrine EED9473-93-16 18:40:00* Test Item Value Reference Range Interpretation Comments Urine RBC (test code = 43162-1) 0-5 0-5 [facility] TexasUrine Edzhfmye8044-97-60 18:40:00* Test Item Value Reference Range Interpretation Comments Urine Bacteria (test code = 89362-4) NONE NONE [facility] TexasUrine Epithelial Szwro8013-11-07 18:40:00 * Test Item Value Reference Range Interpretation Comments Urine Epithelial Cells (test code = 79947-9) MANY NONE [facility] TexasUrine Hyaline Foldx3777-87-95 18:40:00* Test Item Value Reference Range Interpretation Comments Urine Hyaline Casts (test code = 19046-3) 2-5 0-1 H [facility] TexasUrine Kqzjf8497-78-95 18:23:00* Test Item Value Reference Range Interpretation Comments Urine Color (test code = 5778-6) ALEC YELLOW H [facility] TexasUrine Xjfrsbp5565-22-50 18:23:00* Test Item Value Reference Range Interpretation Comments Urine Clarity (test code = 55443-2) CLEAR CLEAR [facility] TexasUrine Specific Wneyacx3331-17-80 18:23:00 * Test Item Value Reference Range Interpretation Comments Urine Specific [place] (test code = 5811-5) 1.020 1.010-1.02 5 [facility] TexasUrine qP7199-16-18 18:23:00* Test Item Value Reference Range Interpretation Comments Urine pH (test code = 93273-5) 6 5-7 [facility] TexasUrine Leukocyte Ibwwzsqw6482-73-02 18:23:00* Test Item Value Reference Range Interpretation Comments Urine Leukocyte Esterase (test code = 5799-2) NEGATIVE NEGATIVE [facility] TexasUrine Slsctws9909-95-87 18:23:00* Test Item Value Reference Range Interpretation Comments Urine Nitrite (test code = 88276-1) NEGATIVE NEGATIVE [facility] TexasUrine Xtglnzj5031-28-50 18:23:00* Test Item Value Reference Range Interpretation Comments Urine Protein (test code = 5804-0) NEGATIVE NEGATIVE [facility] TexasUrine Glucose (UA)2017-09-12 18:23:00* Test Item Value Reference Range Interpretation Comments Urine Glucose (UA) (test code = 2349-9) NEGATIVE NEGATIVE [facility] TexasUrine Tsdxtlg0355-27-83 18:23:00* Test Item Value Reference Range Interpretation Comments Urine Ketones (test code = 26999-6) NEGATIVE NEGATIVE [facility] TexasUrine Ttasrzcmvmkl7076-59-52 18:23:00* Test Item Value Reference Range Interpretation Comments Urine Urobilinogen (test code = 75115-6) 0.2 0.2-1 [facility] TexasUrine Lggtuovkz9971-04-02 18:23:00* Test Item Value Reference Range Interpretation Comments Urine Bilirubin (test code = 1978-6) NEGATIVE NEGATIVE [facility] TexasUrine Eqzqh9432-11-26 18:23:00* Test Item Value Reference Range Interpretation Comments Urine Blood (test code = 38663-3) NEGATIVE NEGATIVE [facility] of TexasLipase2018-05-09 09:38:00* Test Item Value Reference Range Interpretation Comments Lipase (test code = 3040-3) 72 8-78 [facility] of TexasAmmonia2018-05-09 09:13:00* Test Item Value Reference Range Interpretation Comments Ammonia (test code = 93619-4) 86 31-123 [facility] TexasDifferential Total Cells Counted 2017-09-10 09:34:00* Test Item Value Reference Range Interpretation Comments Differential Total Cells Counted (test code = Differen tial Total Cells Counted) 100 [facility] TexasNeutrophils % (Manual)2017-09-10 09:34:00 * Test Item Value Reference Range Interpretation Comments Neutrophils % (Manual) (test code = 50337-3) 79 40-74 H [facility] TexasLymphocytes % (Manual)2017-09-10 09:34:00 * Test Item Value Reference Range Interpretation Comments Lymphocytes % (Manual) (test code = 737-7) 15 19-48 L [facility] TexasMonocytes % (Manual)2017-09-10 09:34:00* Test Item Value Reference Range Interpretation Comments Monocytes % (Manual) (test code = 744-3) 4 3.4-9.0 [facility] TexasEosinophils % (Manual)2017-09-10 09:34:00 * Test Item Value Reference Range Interpretation Comments Eosinophils % (Manual) (test code = 714-6) 1 0-7 [facility] TexasBlast Cells %2017-09-10 09:34:00* Test Item Value Reference Range Interpretation Comments Blast Cells % (test code = 41738-5) 1 [facility] TexasPlatelet Mtohignq9100-54-52 09:34:00* Test Item Value Reference Range Interpretation Comments Platelet Estimate (test code = 82733-2) MODERATELY DECREASED [facility] TexasPlatelet Morphology Elmwldl0487-47-97 09:34:00* Test Item Value Reference Range Interpretation Comments Platelet Morphology Comment (test code = 87103-1) FEW GIANT [facility] TexasAnisocytosis2018-05-07 09:34:00* Test Item Value Reference Range Interpretation Comments Anisocytosis (test code = 702-1) SLIGHT [facility] TexasTear Drop Fvnev3718-36-55 09:34:00* Test Item Value Reference Range Interpretation Comments Tear Drop Cells (test code = 7791-7) FEW [facility] TexasRed Cell Morphology Nhxjhpz1890-23-06 09:34:00* Test Item Value Reference Range Interpretation Comments Red Cell Morphology Comment (test code = 6742-1) NORMAL [facility] TexasVitamin B12 Emfgj9362-63-61 08:09:00* Test Item Value Reference Range Interpretation Comments Vitamin B12 Level (test code = 15557-9) 648 218-634 [facility] of TexasThyroid Stimulating Hormone (TSH) 2017-09-10 07:47:00* Test Item Value Reference Range Interpretation Comments Thyroid Stimulating Hormone (TSH) (test code = 58109-8) 0.778 0.350-4.940 [facility] TexasWhite Blood Viuws9061-56-40 07:10:00* Test Item Value Reference Range Interpretation Comments White Blood Count (test code = 6690-2) 4.45 4.8-10.8 L [facility] TexasRed Blood Fmfup5601-56-21 07:10:00* Test Item Value Reference Range Interpretation Comments Red Blood Count (test code = 789-8) 4.27 3.6-5.1 [facility] TexasHemoglobin2018-05-07 07:10:00* Test Item Value Reference Range Interpretation Comments Hemoglobin (test code = 09763-0) 12.2 12.0-16.0 [facility] TexasHematocrit2018-05-07 07:10:00* Test Item Value Reference Range Interpretation Comments Hematocrit (test code = 4544-3) 36.4 34.2-44.1 [facility] TexasMean Corpuscular Vwghvz1265-29-64 07:10:00* Test Item Value Reference Range Interpretation Comments Mean Corpuscular Volume (test code = 787-2) 85.2 81-99 [facility] TexasMean Corpuscular Lztxndjovq8703-18-53 07:10:00* Test Item Value Reference Range Interpretation Comments Mean Corpuscular Hemoglobin (test code = 785-6) 28.6 28-32 [facility] Corp[facility] Hemoglobin Concent 2017-09-10 07:10:00* Test Item Value Reference Range Interpretation Comments Mean Corpuscular Hemoglobin Concent (test code = 786-4) 33.5 31-35 [facility] TexasRed Cell Distribution Qnxxz7798-70-58 07:10:00* Test Item Value Reference Range Interpretation Comments Red Cell Distribution Width (test code = 83640-1) 14.9 11.7 -14.4 H [facility] TexasPlatelet Jynhu4519-93-67 07:10:00* Test Item Value Reference Range Interpretation Comments Platelet Count (test code = 777-3) 38 140-360 LL Results called to ALEXIS ACEVEDO RN at 0709 on 09/10/17 by Mario Ling. RB [place]. [facility] TexasNeutrophils (%) (Auto)2017-09-10 07:10:00 * Test Item Value Reference Range Interpretation Comments Neutrophils (%) (Auto) (test code = 81451-6) 74.0 38.7-80.0 [facility] TexasLymphocytes (%) (Auto)2017-09-10 07:10:00 * Test Item Value Reference Range Interpretation Comments Lymphocytes (%) (Auto) (test code = 736-9) 11.0 18.0-39.1 L [facility] TexasMonocytes (%) (Auto)2017-09-10 07:10:00* Test Item Value Reference Range Interpretation Comments Monocytes (%) (Auto) (test code = 5905-5) 11.9 4.4-11.3 H [facility] TexasEosinophils (%) (Auto)2017-09-10 07:10:00 * Test Item Value Reference Range Interpretation Comments Eosinophils (%) (Auto) (test code = 713-8) 2.0 0.0-6.0 [facility] TexasBasophils (%) (Auto)2017-09-10 07:10:00* Test Item Value Reference Range Interpretation Comments Basophils (%) (Auto) (test code = 706-2) 0.7 0.0-1.0 [facility] TexasIM GRANULOCYTES %2017-09-10 07:10:00* Test Item Value Reference Range Interpretation Comments IM GRANULOCYTES % (test code = IM GRANULOCYTES %) 0.4 0.0- 1.0 [facility] TexasNeutrophils # (Auto)2017-09-10 07:10:00* Test Item Value Reference Range Interpretation Comments Neutrophils # (Auto) (test code = 751-8) 3.3 2.1-6.9 [facility] TexasLymphocytes # (Auto)2017-09-10 07:10:00* Test Item Value Reference Range Interpretation Comments Lymphocytes # (Auto) (test code = 32978-8) 0.5 1.0-3.2 L [facility] TexasMonocytes # (Auto)2017-09-10 07:10:00* Test Item Value Reference Range Interpretation Comments Monocytes # (Auto) (test code = 742-7) 0.5 0.2-0.8 [facility] TexasEosinophils # (Auto)2017-09-10 07:10:00* Test Item Value Reference Range Interpretation Comments Eosinophils # (Auto) (test code = 711-2) 0.1 0.0-0.4 [facility] TexasBasophils # (Auto)2017-09-10 07:10:00* Test Item Value Reference Range Interpretation Comments Basophils # (Auto) (test code = 704-7) 0.0 0.0-0.1 [facility] TexasAbsolute Immature Granulocyte (auto 2017-09-10 07:10:00* Test Item Value Reference Range Interpretation Comments Absolute Immature Granulocyte (auto (ga t code = Absolute Immature Granulocyte (auto) 0.02 0-0.1 [facility] TexasAmylase Oygkp2274-79-06 09:44:00* Test Item Value Reference Range Interpretation Comments Amylase Level (test code = 1798-8) 99 25-125 [facility] TexasCreatine Ikltdz7795-24-09 20:46:00* Test Item Value Reference Range Interpretation Comments Creatine Kinase (test code = 2157-6) 386 29-168 H [facility] TexasCreatine Kinase RE6590-21-21 20:46:00* Test Item Value Reference Range Interpretation Comments Creatine Kinase MB (test code = 63849-6) 20.40 0-5.0 H [facility] TexasTroponin [id number] 20:46:00* Test Item Value Reference Range Interpretation Comments Troponin I (test code = FAI3707) 0.001 0-0.300 [facility] TexasBlood Wlukeit2010-33-27 22:13:00* Test Item Value Reference Range Interpretation Comments Blood Culture (test code = 69187114) NO GROWTH AFTER 5 DAYS, FINAL REPORT [facility] TexasUrine Geizmxy2776-56-97 08:42:00* Test Item Value Reference Range Interpretation Comments Urine Culture (test code = 630-4) Organism: ESCHERICHIA COLI-ESBL [facility] TexasBand Neutrophils %2016-11-21 07:39:00* Test Item Value Reference Range Interpretation Comments Band Neutrophils % (test code = 764-1) 1 [facility] TexasBasophils % (Manual)2016-11-21 07:39:00* Test Item Value Reference Range Interpretation Comments Basophils % (Manual) (test code = 09379-0) 1 0-1.5 [facility] TexasHypochromasia2017-07-18 07:39:00* Test Item Value Reference Range Interpretation Comments Hypochromasia (test code = 728-6) SLIGHT [facility] TexasElliptocytes2017-07-18 07:39:00* Test Item Value Reference Range Interpretation Comments Elliptocytes (test code = 85081-3) SLIGHT [facility] TexasBacterial urine azjsehc5080-11-35 07:38:00* Test Item Value Reference Range Interpretation Comments Urine Culture (test code = 630-4) Organism: STREPTOCOCCUS VIRIDANS [facility] TexasEthyl Alcohol Xggsr3329-08-74 22:47:00* Test Item Value Reference Range Interpretation Comments Ethyl Alcohol Level (test code = 5643-2) -10.0 0.0-10.0 --- 11/18/162246 ---ETHANOL previously reported as: < 10.0 mg/dL [facility] Wvkgb5037-60-00 22:47:00* Test Item Value Reference Range Interpretation Comments Salicylates Level (test code = 4024-6) -5.0 0-30 [facility] TexasAcetaminophen Xolwb1015-41-79 22:46:00* Test Item Value Reference Range Interpretation Comments Acetaminophen Level (test code = 77665-2) -3 10-30 L [facility] TexasUrine Opiates Zqixne2905-38-41 22:36:00* Test Item Value Reference Range Interpretation Comments Urine Opiates Screen (test code = 93760-3) NEGATIVE NEGATIVE ALL TESTS PERFORMED MANUALLY ON SIGNIFY ER TESTD[facility] TexasUrine Barbiturates Rumddp0918-07-61 22:36:00* Test Item Value Reference Range Interpretation Comments Urine Barbiturates Screen (test code = 271326256) NEGATIVE NEGA TIVE [facility] TexasUrine Phencyclidine Ydphwf2187-65-00 22:36:00* Test Item Value Reference Range Interpretation Comments Urine Phencyclidine Screen (test code = 15376-8) NEGATIVE NEGAT JANIS [facility] TexasUrine Amphetamines Qfvgup7450-21-61 22:36:00* Test Item Value Reference Range Interpretation Comments Urine Amphetamines Screen (test code = 52283-2) NEGATIVE NEGATI VE [facility] TexasUrine Benzodiazepines Zpxopb8176-62-35 22:36:00* Test Item Value Reference Range Interpretation Comments Urine Benzodiazepines Screen (test code = 01338-6) NEGATIVE NEG ATIVE [facility] TexasUrine Cocaine Oybvrt1633-94-43 22:36:00* Test Item Value Reference Range Interpretation Comments Urine Cocaine Screen (test code = Urine Cocaine Screen) NEGATIVE NEGATIVE [facility] TexasUrine Cannabinoids Gvmcrh0409-53-88 22:36:00* Test Item Value Reference Range Interpretation Comments Urine Cannabinoids Screen (test code = 91650-8) NEGATIVE NEGATI VE THESE RESULTS ARE FOR MEDICAL TREATMENT ONLYTHIS REPORT CONTAINS UNCONFIR MED SCREENING RESULTS*POSITIVE RESULTS WILL BE CONFIRMED BY REFERENCE LAB UPON R EQUEST CUT-OFFDRUG CLASS CONCENTRATION ng/mLAmphetamines 1000Methamphetamines 1000Cocaine 300Opiate 300Phencyc lidine 25Cannabinoid 50Barbiturates 300Benzodiazepine 300Methadone 300[facility] HospitalLactic Acid Bwsgu8324-91-86 22:31:00* Test Item Value Reference Range Interpretation Comments Lactic Acid Level (test code = Lactic Acid Level) 14.0 4.5- 19.8 [facility] TexasActivated Partial Thromboplast Time 2016-11-18 22:23:00* Test Item Value Reference Range Interpretation Comments Activated Partial Thromboplast Time (test code = 23196-7) 29.1 23.8-35.5 [facility] TexasProthrombin Zjkb3863-64-84 22:22:00* Test Item Value Reference Range Interpretation Comments Prothrombin Time (test code = 5902-2) 14.7 11.9-14.5 H [facility] TexasProthromb Time International Ratio 2016-11-18 22:22:00* Test Item Value Reference Range Interpretation Comments Prothromb Time International Ratio (test code = 6301-6) 1.09 Oral Anticoagulant Therapy INR Values:1. Low Intensity Therapy 1.5 - 2.02 . Moderate Intensity Therapy 2.0 - 3.03. High Intensity Therapy(1) 2.5 - 3. 54. High Intensity Therapy(2) 3.0 - 4.05. Panic Value INR > 5.0 [facility] TexasTISSUE [id number] 10:03:00Surgical Pathology Report Case: [id number] Authorizing Provider: Neena Fuentes MD Ordering Provider: Neena Fuentes MD MPH MPH Ordering Location: [facility] Endoscopy Collected: 08/21/2016 1421 Services Pathologist: Varinder Rodgers MD Re ceived: 08/22/2016 0725 Specimen: Sto mach, Antrum, bx STOMACH, ANTRUM, BIOPSY: - CHRONIC INACTIVE GASTRITIS - NEGATIVE FOR H. PYLO RI BY WARTHIN-STARRY STAIN Signing Pathologist Direct Phone Line: [phone] of liver without ascitesStomach antrum biopsyReceived in for yoanna labeled "stomach, antrum" are two fragments measuring 0.3 and 0.5 cm in gr eatest dimension. Entirely submitted A1. DB/plPerformed.The following special st udies were performed on this case and the interpretation is incorporated in the diagnostic report above:TERESATHIN-PELONPLATELET [id number] 11:12:00* Test Item Value Reference Range Interpretation Comments PLATELET COUNT (BEAKER) (test code = 756) 38 K/CU MM 150-430 L POTASSIUM-STAT [id number] 10:42:00* Test Item Value Reference Range Interpretation Comments POTASSIUM (BEAKER) (test code = 379) 3.3 meq/L 3.6-5.5 L POCT-GLUCOSE [id number] 10:37:00* Test Item Value Reference Range Interpretation Comments POC-GLUCOSE METER (BEAKER) (test code = 1538) 126 mg/dL 70-110 H TESTED AT [facility] [address] [facility] [address] [id number] 17:06:00* Test Item Value Reference Range Interpretation Comments THYROID STIMULATING HORMONE (BEAKER) (test code = 772) 1.15 uIU/mL 0.35-4.94 HEMOGLOBIN [id number] 16:43:00* Test Item Value Reference Range Interpretation Comments HEMOGLOBIN A1C (BEAKER) (test code = 368) 7.9 % 4.3-6.1 H ALPHA FETOPROTEIN (AFP), TUMOR [id number] 15:18:00* Test Item Value Reference Range Interpretation Comments ALPHA-FETOPROTEIN (BEAKER) (test code = 1094) 3.6 ng/mL <10.0 Effective 03/24/2014: Reference Range ChangeNew: <10.0 Previous: 0.0-8.0BASIC METABOLIC [id number] 14:57:00* Test Item Value Reference Range Interpretation [...] APPLICABLE FOR DIALYSIS PATIENTS. Specimen slightly ictericLIPID [id number] 14:57:00* Test Item Value Reference Range Interpretation [...] Very High >=190 Specimen slightly ictericHEPATIC FUNCTION [id number] 14:57:00* Test Item Value Reference Range Interpretation [...] Specimen slightly ictericCBC W/PLT COUNT & AUTO [id number] 14:54:00 * Test Item Value Reference Range [...] 417) 0.04 K/ L 0. 00-0.20 0.00PROTHROMBIN TIME/[id number] 14:45:00* Test Item Value Reference Range Interpretation [...] pat ients with mechanical heart valves.ABDOMEN-1VIEW (TYRELL) [place] [address] Patient Name: DELORES KATE MR #: [id number] : 1955 Age/Sex: 61/F Req #: [id number] Adm Physician: JUNI DEAL MD Ordered by: RAUL SIMON MD Report #: [id number] Location: MED/SURG2 Room/Bed: [facility] Procedure: [id number] DX/ABD OMEN-1VIEW (KUB) Exam Date: 09/11/17 Exam [...] COPY TO: RAUL SIMON MD ABDOMEN-1VIEW (KU) [place] [address] Patient Name: DELORES KATE MR #: [id number] : 1955 Age/Sex: 61/F Req #: [id number] Adm Physician: JUNI DEAL MD Ordered by: RAUL SIMON MD Report #: [id number] Location: MED/SURG2 Room/Bed: [facility] Procedure: [id number] DX/ABD OMEN-1VIEW (KUB) Exam Date: Exam Time: [...] RAUL SIMON MD CHEST SINGLE (NOT PORTABLE) [place] [address] Patient Name: DELORES KATE MR #: [id number] : 1955 Age/Sex: 61/F Req #: [id number] Adm Physician: Ordered by: LM PINTO MD Report #: [id number] Location: ER Room/Bed: Procedure: [id number] DX/CHEST SINGLE (NOT P ORTABLE) Exam Date: [...] TO: LM PINTO MD CT ABDOMEN/PELVIS W [place] [address] Patient Name: DELORES KATE MR #: [id number] : 1955 Age/Sex: 61/F Req #: [id number] Adm Physician: Ordered by: LM PINTO MD Report #: [id number] Location: Room/Bed: Procedure: [id number] CT/CT ABDOMEN/PELVIS W Exam Date: Exam Time: [...]
--- OUTSIDE RECORDS SUMMARY | 2020-02-01 16:11 | XMS REPORT | Clinical Summary ---
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
--- NOTE | 2020-02-01 16:42 | NUR ---
NOTED PT'S ELEVATED BLOOD SUGAR LEVELS. DR. DEAL NOTIFIED.
--- NOTE | 2020-02-01 18:29 | Progress Note ---
DATE: SUBJECTIVE: The patient is COVID-19 positive. So far breathing has been stable, known to our Pulmonary Service. The patient has history of BALDERAS and asthma. Denies any complaints of chest pain. Breathing has improved. Chest CT was done on 01/29, which is showing large right and trace left pleural effusion and the patient also has cirrhotic liver. REVIEW OF SYSTEMS: GENERAL: Denies any fever or chills. Cough has improved. ASSESSMENT/PLAN: Ms. Nguyen is a 64-year-old female came in with shortness of breath, diagnosed with COVID-19 pneumonia. The patient has large pleural effusion on CT scan. Platelet counts are 20. The patient is thrombocytopenic. Will need thoracentesis, likely will need a platelet transfusion before thoracentesis. We will defer that to Radiology. I will request thoracentesis. The patient is on remdesivir which shall be continued. Continue the patient on diuretics as well. MD KACIE Sanchez/JAMES /[id number]
[2020-02-01 20:10] VITALS: BP 115/58
[2020-02-01] MEDS: METHOCARBAMOL 500 MG TAB PO PRN (21:32)
[2020-02-01] MEDS: TRAMADOL HCL 50 MG TAB PO PRN (21:32)
[2020-02-01] MEDS: BENZONATATE 100 MG CAP PO PRN (21:32)
[2020-02-02] VITALS (8 sets, daily range): BP systolic 108–127; BP diastolic 58–67
[2020-02-02] MEDS: ALBUTEROL/IPRATROPIUM 3 ML NEB NEB SCH ×4 (01:00→19:00)
[2020-02-02 07:17] LABS: BASOPHILS % 0.5 % (0.0-1.0); EOSINOPHILS % 0.5 % (0.0-6.0); HEMATOCRIT 34.8 % (34.2-44.1); HEMOGLOBIN 11.8 g/dL (12.0-16.0); LYMPHOCYTES # (AUTO) 0.5 (1.0-3.2); LYMPHOCYTES % 24.5 % (18.0-39.1); MEAN CORPUSCULAR HEMOGLOBIN 27.3 pg (28-32); MEAN CORPUSCULAR HGB CONC 33.9 g/dL (31-35); MEAN CORPUSCULAR VOLUME 80.6 fL (81-99); MONOCYTES # (AUTO) 0.3 (0.2-0.8); MONOCYTES % 15.1 % (4.4-11.3); NEUTROPHILS # (AUTO) 1.3 (2.1-6.9); NEUTROPHILS % 58.9 % (38.7-80.0); RED BLOOD COUNT 4.32 x10e6/uL (3.6-5.1); RED CELL DISTRIBUTION WIDTH 14.7 % (11.7-14.4)
[2020-02-02 07:28] LABS: PLATELET COUNT 33 x10e3/uL (140-360)
[2020-02-02 07:33] LABS: MAGNESIUM 1.5 MG/DL (1.3-2.1); PHOSPHORUS 2.5 MG/DL (2.3-4.7)
[2020-02-02 07:39] LABS: ANION GAP 7.7 mmol/L (8-16); BLOOD UREA NITROGEN 9 mg/dL (7-26); BUN/CREATININE RATIO 12 (6-25); CALCIUM 7.5 mg/dL (8.4-10.2); CARBON DIOXIDE 27 mmol/L (22-29); CHLORIDE 103 mmol/L (98-107); CREATININE, SERUM 0.73 mg/dL (0.57-1.11); EST GLOMERULAR FILTRATION RATE > 60 ML/MIN (60-); GLUCOSE 205 mg/dL (74-118); POTASSIUM 3.7 mmol/L (3.5-5.1); SODIUM 134 mmol/L (136-145)
--- NOTE | 2020-02-02 08:05 | NUR ---
PATIENT IS AWAKE, ALERT, AND IS IN STABLE CONDITION WITH NO S/S OF RESPIRATORY DISTRESS. NO PAIN VOICED. TELEMETRY APPLIED. RIGGS INTACT AND DRAINING. CALL LIGHT IS WITHIN REACH, PATIENT INSTRUCTED TO CALL FOR ASSISTANCE NEEDED.
[2020-02-02] MEDS: INSULIN GLARGINE 100 UNITS/ML VIAL SQ SCH ×2 (08:32→22:01)
[2020-02-02] MEDS: AZITHROMYCIN 500MG/NS 250 ML 250 ML IV SCH (08:32)
[2020-02-02] MEDS: FUROSEMIDE INJ 10 MG/ML 4 ML VIAL IV SCH ×2 (08:32→11:44)
[2020-02-02] MEDS: URSODIOL 300 MG CAP PO SCH ×3 (09:00→21:30)
[2020-02-02] MEDS: POTASSIUM CHLORIDE 10MEQ EA PO SCH ×2 (09:00→16:44)
[2020-02-02] MEDS: SPIRONOLACTONE 25 MG TAB PO SCH ×2 (09:00→16:44)
--- NOTE | 2020-02-02 09:50 | NUR ---
CALLED AND LEFT DR. DEAL A VOICE MESSAGE REGARDING CRITICAL PLATELET LEVEL OF 33 AND THAT THE RADIOLOGIST IS WANTING THE PATIENT TO BE TRANSFUSED PRIOR TO THE SCHEDULE IR PROCEDURE TODAY. AWAITING CALLBACK.
[2020-02-02] MEDS: CEFTRIAXONE SOD 1 GM/NS 50 ML 50 ML IV SCH (11:44)
[2020-02-02] MEDS: REMDESIVIR 100MG/NS 100ML 100 MG in SODIUM CHLORIDE 0.9% 100 ML 100 ML IV SCH (13:11)
--- NOTE | 2020-02-02 15:35 | NUR ---
INFECTIOUS DISEASE PROGRESS NOTE VADIM BRYAN M.D HISTORY OF PRESENT ILLNESS: The patient is seen and evaluated. Available labs and notes reviewed. This is a pleasant 64-year-old female with complicated past medical history including nonalcoholic hepatic cirrhosis with history of asthma and asthma attacks. Started having some cough and shortness of breath, which she thought it was her asthma, being exacerbated. The patient reported to the hospital and now the patient tested positive for COVID-19 through the PCR. PAST MEDICAL HISTORY: Includes: 1. Nonalcoholic hepatic cirrhosis. 2. Obesity. 3. Diabetes type 2. 4. History of pancreatitis in the past. 5. COPD. 6. Irritable bowel syndrome. 7. Obstructive sleep apnea. 8. Esophagitis in the past. ALLERGIES: THE PATIENT HAS MULTIPLE ALLERGIES INCLUDING MEPERIDINE, METFORMIN, NAPROXEN, ACETAMINOPHEN, HYDROCODONE, CODEINE, MORPHINE, GLIPIZIDE, AND NSAIDS. PHYSICAL EXAMINATION: VITAL SIGNS: Temperature is 97.8, pulse 86, respirations 18, and blood pressure 138/63. Recheck vital signs includes temperature 98.9, pulse 98, respirations 16, blood pressure 132/64. GENERAL: Awake and alert, pleasant, no acute distress. CV: S1-S2. CHEST: Equal expansion, rales bilateral. ABDOMEN: Soft. Positive bowel sounds. HEENT: Moist. No pallor. No JVD. EXTREMITIES: 1+ edema. MEDICATIONS: Medication list reviewed. From Infectious Disease point of view, the patient is on Zithromax, Rocephin, and dexamethasone. LABORATORY STUDIES: White count a 1.55, platelets 29, hemoglobin 13.4. Sodium 138, potassium 3.7, creatinine level of 0.76, AST 74, and ALT 34. MICROBIOLOGY: Blood culture and urine culture 01/29, negative so far. IMAGING: REVIEWED ASSESSMENT AND PLAN: COVID-19 infection -the patient is currently on Zithromax, Rocephin, and dexamethasone. FARHAN on CKD Liver disease secondary to ETOH use -cleared for RMSV, pending further Liver function tests RMSV statement: I have discussed with the patient in regard to remdesivir and reviewed investigational antiviral medication for COVID-19 remdesivir with the patient. Remdesivir is an unauthorized drug that is authorized by FDA for emergency use, authorization EUA. Medication fact sheet was provided to the patient. Alternative therapies and questions were addressed. The patient understands that she may decide not receive this medication or stop therapy at any time today. The patient agreed to receive this therapy, if it is available.
--- NOTE | 2020-02-02 15:59 | Progress Note ---
DATE: SUBJECTIVE: The patient is breathing better. No distress. Bilateral pleural effusion. The patient is on remdesivir for COVID-19 pneumonia. PHYSICAL EXAMINATION: VITAL SIGNS: Temperature 97.5, pulse of 66, blood pressure 118/60, respiratory rate of 18, and O2 saturation 97%. CHEST: Decreased air entry on the bases. HEART: S1 and S2 audible. ABDOMEN: Soft. EXTREMITIES: Pedal edema. NEUROLOGIC: Awake and alert. LABORATORY DATA: Reviewed. Chemistry reviewed. Platelets are 33. Chest CT was done, 01/29. ASSESSMENT/PLAN: Ms. Nguyen is a 64-year-old female. She has bilateral pleural effusion, history of chronic liver disease, and cirrhosis. Currently has COVID-19 pneumonia. PLAN: The patient will get thoracentesis today. Continue the patient on remdesivir. Wean oxygen as tolerated. Continue antibiotics and Decadron. MD KACIE Sanchez/JAMES /[id number]
--- NOTE | 2020-02-02 16:22 | NUR ---
CALL PLACED OUT TO DR. LAZAR REGARDING IR CONSULT BEING MOVED TO TOMORROW, 02/03/20. PATIENT IS IN STABLE CONDITION WITH NO S/S OF RESPIRATORY DISTRESS. NO PAIN VOICED. TELEMETRY APPLIED.
[2020-02-02] MEDS: DEXAMETHASONE 4 MG TAB PO SCH (16:44)
[2020-02-02] MEDS ORDERED: SODIUM CHLORIDE 0.9% 250ML 250 ML ONE (17:22)
--- NOTE | 2020-02-02 19:15 | NUR ---
PATIENT IS IN STABLE CONDITION WITH NO S/S OF RESPIRATORY DISTRESS. NO PAIN VOICED. TELEMETRY APPLIED. 02 APPLIED AT 3L NC. BED ALARM APPLIED. CALL LIGHT IS WITHIN REACH, PATIENT INSTRUCTED TO CALL FOR ASSISTANCE NEEDED. PATIENT IS AWARE SHE WILL BE NPO AFTER MIDNIGHT. BEDSIDE REPORT GIVEN TO ONCOMING NURSE.
--- NOTE | 2020-02-02 19:26 | NUR ---
RN to call sariah to change nebs to MDI - Pt is COVID + Addendum: 02/02/20 at 1927 by Lesia Yanes RT Amended: Links added.
[2020-02-02] MEDS: METHOCARBAMOL 500 MG TAB PO PRN (23:15)
[2020-02-02] MEDS: ONDANSETRON HCL INJ 2MG/ML 2ML 2 MG/ML VIAL IV PRN (23:15)
[2020-02-02] MEDS: BENZONATATE 100 MG CAP PO PRN (23:15)
[2020-02-02] MEDS: TRAMADOL HCL 50 MG TAB PO PRN (23:15)
[2020-02-03] VITALS (8 sets, daily range): BP systolic 105–125; BP diastolic 52–76
[2020-02-03] MEDS: ALBUTEROL/IPRATROPIUM 3 ML NEB NEB SCH ×4 (01:12→19:00)
[2020-02-03 06:58] LABS: BASOPHILS % 0.4 % (0.0-1.0); HEMATOCRIT 37.8 % (34.2-44.1); HEMOGLOBIN 12.8 g/dL (12.0-16.0); LYMPHOCYTES # (AUTO) 0.5 (1.0-3.2); LYMPHOCYTES % 16.9 % (18.0-39.1); MEAN CORPUSCULAR HEMOGLOBIN 27.7 pg (28-32); MEAN CORPUSCULAR HGB CONC 33.9 g/dL (31-35); MEAN CORPUSCULAR VOLUME 81.8 fL (81-99); MONOCYTES # (AUTO) 0.2 (0.2-0.8); MONOCYTES % 5.4 % (4.4-11.3); NEUTROPHILS # (AUTO) 2.1 (2.1-6.9); NEUTROPHILS % 76.2 % (38.7-80.0); RED BLOOD COUNT 4.62 x10e6/uL (3.6-5.1); RED CELL DISTRIBUTION WIDTH 14.6 % (11.7-14.4)
[2020-02-03] MEDS: SPIRONOLACTONE 25 MG TAB PO SCH ×2 (08:06→16:45)
[2020-02-03] MEDS: URSODIOL 300 MG CAP PO SCH ×3 (08:06→22:37)
[2020-02-03] MEDS: FUROSEMIDE INJ 10 MG/ML 4 ML VIAL IV SCH ×2 (08:06→13:29)
[2020-02-03] MEDS: DEXAMETHASONE 4 MG TAB PO SCH (08:07)
[2020-02-03] MEDS: POTASSIUM CHLORIDE 10MEQ EA PO SCH ×2 (08:08→16:46)
[2020-02-03] MEDS: TRAMADOL HCL 50 MG TAB PO PRN ×2 (08:09→22:38)
[2020-02-03] MEDS: BENZONATATE 100 MG CAP PO PRN ×2 (08:09→22:37)
[2020-02-03] MEDS: ONDANSETRON HCL INJ 2MG/ML 2ML 2 MG/ML VIAL IV PRN ×2 (08:10→22:37)
[2020-02-03] MEDS: AZITHROMYCIN 500MG/NS 250 ML 250 ML IV SCH (08:10)
[2020-02-03 08:32] LABS: LYMPHOCYTES % (MANUAL) 6 % (19-48); MONOCYTES % (MANUAL) 2 % (3.4-9.0); NEUTROPHILS % (MANUAL) 91 % (40-74)
[2020-02-03 08:33] LABS: ANISOCYTOSIS SLIGHT; ELLIPTOCYTE, RBC SLIGHT; OVALOCYTES FEW; TEAR DROP CELLS FEW
[2020-02-03 08:34] LABS: PLATELET ESTIMATE MARKEDLY DECREASED; PLATELET MORPHOLOGY COMMENT NORMAL; RBC MORPHOLOGY COMMENT NORMAL
[2020-02-03 08:36] LABS: PLATELET COUNT 47 x10e3/uL (140-360)
--- NOTE | 2020-02-03 08:54 | Diagnostic Imaging Report ---
EXAM: CHEST SINGLE (PORTABLE) DATE: 02/03/2020 6:15 AM INDICATION: COPD, pneumonia COMPARISON: CT chest from 01/30/2020 FINDINGS: There is a moderate-sized right pleural effusion which appears decreased in size in comparison to the prior CT examination from 01/30/2020. There is blunting of the left costophrenic angle and a trace left pleural effusion is suspected. Right lower lung zone opacities noted which may reflect atelectasis. An underlying airspace process cannot be entirely excluded. There is no evidence for pneumothorax. The cardiomediastinal silhouette is within normal limits. No acute osseous abnormality is identified. IMPRESSION: Moderate size right pleural effusion and associated right lower lung zone opacities suggestive of atelectasis. Trace left pleural effusion. Signed by: Dr. Paul Johnson MD on 02/03/2020 8:51 AM
[2020-02-03] MEDS: INSULIN GLARGINE 100 UNITS/ML VIAL SQ SCH ×3 (09:01→21:30)
[2020-02-03] MEDS: CEFTRIAXONE SOD 1 GM/NS 50 ML 50 ML IV SCH (10:33)
--- NOTE | 2020-02-03 12:53 | Progress Note ---
DATE: SUBJECTIVE: Ms. Nguyen is doing well. There is no new complaint. Her shortness of breath is better. REVIEW OF SYSTEMS: Otherwise unremarkable. LABORATORY DATA: Reviewed. Chart reviewed. PHYSICAL EXAMINATION: VITAL SIGNS: Temperature 97.9, heart rate 73, respirations 16. She is on 3 L nasal cannula. HEENT: She is not icteric. NECK: Supple. CHEST: Crackles. HEART: S1 and S2. ABDOMEN: Soft. Bowel sounds present. EXTREMITIES: No edema. SKIN: No rash. IMPRESSION: COVID-19, respiratory failure, pneumonia, to finish 5 days of remdesivir, 10 days of dexamethasone. Continue Lovenox, diabetic control as ordered. We will discontinue azithromycin. We will follow. MD CHERRIE Ramirez/MODL /[id number]
--- NOTE | 2020-02-03 14:56 | Diagnostic Imaging Report ---
EXAM: CHEST XRAY POST PROCEDURE DATE: 02/03/2020 2:33 PM INDICATION: Status post right thoracentesis COMPARISON: 02/03/2020 0615 FINDINGS: There has been near complete evacuation of right-sided pleural fluid and improved aeration of the right lung status post thoracentesis. There is no evidence for pneumothorax status post thoracentesis. Stable trace left pleural effusion suspected. There is no evidence for new large focal consolidation. The cardiomediastinal silhouette is stable in appearance. No acute osseous abnormalities identified. IMPRESSION: No evidence of pneumothorax status post right thoracentesis. Signed by: Dr. Paul Johnson MD on 02/03/2020 2:53 PM
[2020-02-03] MEDS: REMDESIVIR 100MG/NS 100ML 100 MG in SODIUM CHLORIDE 0.9% 100 ML 100 ML IV SCH (14:57)
--- NOTE | 2020-02-03 15:34 | Diagnostic Imaging Report ---
Ultrasound guided thoracentesis History: Right pleural effusion Technique: Written informed consent was obtained after discussing risks, benefits, and alternatives of the procedure with the patient. Patient was brought to the ultrasound suite and placed on the table in upright position. Pre-procedural ultrasound demonstrates a right pleural effusion. Suitable percutaneous access site was chosen in the posterior right chest. Overlying skin was prepared and draped in the usual sterile fashion. Planned needle tract was anesthetized with dilute Lidocaine for local anesthesia. Using sonographic guidance, an 5 [place] Island[place] Yueh needle was advanced into the right pleural effusion. Gas Dispatcher images saved in the patient's medical record. Needle was removed, and catheter was advanced. Subsequently, 1.2 L of cloudy fluid was evacuated completely evacuating the effusion. Catheter was removed. Hemostasis achieved at puncture site by direct compression. The patient tolerated the procedure well. There were no complications. Post procedure chest radiograph was ordered. Impression: Technically successful sonographic guided right thoracentesis with evacuation of 1.2 L of fluid. Signed by: Dr. Paul Johnson MD on 02/03/2020 3:30 PM
[2020-02-03 16:11] LABS: BODY FLUID APPEARANCE CLOUDY; BODY FLUID COLOR YELLOW; BODY FLUID TYPE PLEURAL
[2020-02-03 16:30] LABS: RBC,BODY FLUID 168 cells/uL; WBC,BODY FLUID 40 cells/uL
[2020-02-03] MEDS ORDERED: DEXTROSE 50% SYRINGE 50 ML IV PRN (17:30)
[2020-02-03] MEDS: INSULIN LISPRO 100 UNIT/1 ML 3ML VIAL SQ SCH ×2 (18:01→21:30)
[2020-02-03 19:36] LABS: LYMPHOCYTES,BODY FLUID 21 %; MONO/MACROPHG,BODY FLUID 64 %; NEUTROPHILS,BODY FLUID 15 %
--- NOTE | 2020-02-03 21:48 | NUR ---
Call placed to after hour/ off site pharmacy for missing profile of medications in [facility]. Left message at for return call. Pt currently resting in bed, no s/sx of acute distress noted. Bed in low and locked position with call light and personal items within reach. Will cont to mon.
[2020-02-03] MEDS ORDERED: ACETAMINOPHEN 325 MG TAB PO PRN (22:15)
[2020-02-03] MEDS ORDERED: URSODIOL 300 MG CAP ONE (22:25)
[2020-02-03] MEDS ORDERED: METHOCARBAMOL 500 MG TAB ONE (22:30)
[2020-02-03] MEDS ORDERED: TRAMADOL HCL 50 MG TAB ONE (22:31)
[2020-02-03] MEDS ORDERED: BENZONATATE 100 MG CAP ONE (22:31)
[2020-02-03] MEDS ORDERED: ONDANSETRON HCL INJ 2MG/ML 2ML 2 MG/ML VIAL ONE (22:31)
[2020-02-03] MEDS: METHOCARBAMOL 500 MG TAB PO PRN (22:37)
[2020-02-04] VITALS (7 sets, daily range): BP systolic 107–121; BP diastolic 55–72
[2020-02-04] MEDS: ALBUTEROL/IPRATROPIUM 3 ML NEB NEB SCH ×4 (01:00→19:00)
[2020-02-04] MEDS: INSULIN GLARGINE 100 UNITS/ML VIAL SQ SCH ×4 (07:17→16:32)
[2020-02-04] MEDS: INSULIN LISPRO 100 UNIT/1 ML 3ML VIAL SQ SCH ×4 (09:42→21:00)
[2020-02-04] MEDS: URSODIOL 300 MG CAP PO SCH ×3 (09:57→21:00)
[2020-02-04] MEDS: FUROSEMIDE INJ 10 MG/ML 4 ML VIAL IV SCH ×2 (09:57→12:00)
[2020-02-04] MEDS: SPIRONOLACTONE 25 MG TAB PO SCH ×2 (09:57→16:20)
[2020-02-04] MEDS: DEXAMETHASONE 4 MG TAB PO SCH (09:57)
[2020-02-04] MEDS: POTASSIUM CHLORIDE 10MEQ EA PO SCH ×2 (09:57→16:20)
[2020-02-04] MEDS: TRAMADOL HCL 50 MG TAB PO PRN ×2 (10:17→23:00)
[2020-02-04] MEDS: CEFTRIAXONE SOD 1 GM/NS 50 ML 50 ML IV SCH (12:05)
--- NOTE | 2020-02-04 15:51 | NUR ---
INFECTIOUS DISEASE PROGRESS NOTE VADIM BRYAN M.D HISTORY OF PRESENT ILLNESS: The patient is seen and evaluated. Available labs and notes reviewed. This is a pleasant 64-year-old female with complicated past medical history including nonalcoholic hepatic cirrhosis with history of asthma and asthma attacks. Started having some cough and shortness of breath, which she thought it was her asthma, being exacerbated. The patient reported to the hospital and now the patient tested positive for COVID-19 through the PCR. PAST MEDICAL HISTORY: Includes: 1. Nonalcoholic hepatic cirrhosis. 2. Obesity. 3. Diabetes type 2. 4. History of pancreatitis in the past. 5. COPD. 6. Irritable bowel syndrome. 7. Obstructive sleep apnea. 8. Esophagitis in the past. ALLERGIES: THE PATIENT HAS MULTIPLE ALLERGIES INCLUDING MEPERIDINE, METFORMIN, NAPROXEN, ACETAMINOPHEN, HYDROCODONE, CODEINE, MORPHINE, GLIPIZIDE, AND NSAIDS. PHYSICAL EXAMINATION: VITAL SIGNS: Temperature is 97.8, pulse 86, respirations 18, and blood pressure 138/63. Recheck vital signs includes temperature 98.9, pulse 98, respirations 16, blood pressure 132/64. GENERAL: Awake and alert, pleasant, no acute distress. CV: S1-S2. CHEST: Equal expansion, rales bilateral. ABDOMEN: Soft. Positive bowel sounds. HEENT: Moist. No pallor. No JVD. EXTREMITIES: 1+ edema. MEDICATIONS: Medication list reviewed. From Infectious Disease point of view, the patient is on Zithromax, Rocephin, and dexamethasone. LABORATORY STUDIES: White count a 1.55, platelets 29, hemoglobin 13.4. Sodium 138, potassium 3.7, creatinine level of 0.76, AST 74, and ALT 34. MICROBIOLOGY: Blood culture and urine culture 01/29, negative so far. IMAGING: REVIEWED ASSESSMENT AND PLAN: COVID-19 infection -the patient is currently on Zithromax, Rocephin, and dexamethasone. FARHAN on CKD Liver disease secondary to ETOH use -cleared for RMSV, pending further Liver function tests Evaluate for home 02. Once RMSV is finished, the pt can go with home 02 if able to walk on 4LPM or less and maintain SATS >91% RMSV statement: I have discussed with the patient in regard to remdesivir and reviewed investigational antiviral medication for COVID-19 remdesivir with the patient. Remdesivir is an unauthorized drug that is authorized by FDA for emergency use, authorization EUA. Medication fact sheet was provided to the patient. Alternative therapies and questions were addressed. The patient understands that she may decide not receive this medication or stop therapy at any time today. The patient agreed to receive this therapy, if it is available. Morena Hammer MSN, ADMINISTRATION ASSISTANT, AGACNP-BC Vadim Bryan M.D.
--- NOTE | 2020-02-04 19:10 | NUR ---
Report received from morning nurse, Pt no acute distress.
[2020-02-04] MEDS: METHOCARBAMOL 500 MG TAB PO PRN (23:00)
[2020-02-04] MEDS: ONDANSETRON HCL INJ 2MG/ML 2ML 2 MG/ML VIAL IV PRN (23:00)
[2020-02-05] MEDS: ALBUTEROL/IPRATROPIUM 3 ML NEB NEB SCH ×2 (01:00→07:00)
[2020-02-05] MEDS: BENZONATATE 100 MG CAP PO PRN (01:12)
[2020-02-05 05:28] VITALS: BP 125/55
[2020-02-05 06:15] LABS: BASOPHILS % 0.3 % (0.0-1.0); EOSINOPHILS % 0.1 % (0.0-6.0); HEMOGLOBIN 13.3 g/dL (12.0-16.0); LYMPHOCYTES # (AUTO) 0.7 (1.0-3.2); LYMPHOCYTES % 9.1 % (18.0-39.1); MEAN CORPUSCULAR HEMOGLOBIN 28.4 pg (28-32); MEAN CORPUSCULAR VOLUME 81.2 fL (81-99); MONOCYTES # (AUTO) 0.5 (0.2-0.8); MONOCYTES % 6.8 % (4.4-11.3); NEUTROPHILS # (AUTO) 6.3 (2.1-6.9); NEUTROPHILS % 82.5 % (38.7-80.0); PLATELET COUNT 72 x10e3/uL (140-360); RED BLOOD COUNT 4.68 x10e6/uL (3.6-5.1); RED CELL DISTRIBUTION WIDTH 14.8 % (11.7-14.4)
[2020-02-05 06:18] LABS: ANION GAP 12.5 mmol/L (8-16); CALCIUM 8.3 mg/dL (8.4-10.2); CREATININE, SERUM 0.94 mg/dL (0.57-1.11); POTASSIUM 4.5 mmol/L (3.5-5.1)
[2020-02-05 08:00] VITALS: BP 129/55
[2020-02-05] MEDS: INSULIN LISPRO 100 UNIT/1 ML 3ML VIAL SQ SCH ×2 (08:29→12:40)
[2020-02-05] MEDS: DEXAMETHASONE 4 MG TAB PO SCH (08:30)
[2020-02-05] MEDS: URSODIOL 300 MG CAP PO SCH ×2 (08:30→15:00)
[2020-02-05] MEDS: CEFTRIAXONE SOD 1 GM/NS 50 ML 50 ML IV SCH (08:30)
[2020-02-05] MEDS: SPIRONOLACTONE 25 MG TAB PO SCH (08:30)
[2020-02-05] MEDS: INSULIN GLARGINE 100 UNITS/ML VIAL SQ SCH (08:30)
[2020-02-05] MEDS: FUROSEMIDE INJ 10 MG/ML 4 ML VIAL IV SCH ×2 (08:30→12:33)
[2020-02-05] MEDS: POTASSIUM CHLORIDE 10MEQ EA PO SCH (08:31)
--- NOTE | 2020-02-05 12:11 | NUR ---
ORDERS FOR HOME HEALTH CARE AND HOME 02 CM SPOKE WITH PT OVER PHONE AND PT GAVE CONSENT FOR CHOICE LETTER [facility] 02 AND [facility] BOTH IN NETWORK WITH PT'S INS [facility] PH [phone] FAX: [phone] CALLED AND SPOKE WITH COURTNEY AT [facility]; CLINICALS FAXED AND CONFIRMATION REC'D [facility] PH: [phone] FAX: [phone] CALLED AND SPOKE WITH ARELY AT [facility], [facility] FAXED, CONFIRMATION REC'D DELIVERED PORTABLE TANK TO GENA JORGENSEN TO GIVE PT AND INSTRUCTED PT TO CALL [facility] WHEN PT GETS HOME SO PORTABLE CAN BE DELIVER CONCENTRATOR GAVE PT COPY OF CHOICE LETTER WITH MY CARD ATTATCHED FOR QUESTIONS/CONCERNS
--- NOTE | 2020-02-05 12:27 | Progress Note ---
DATE: SUBJECTIVE: Ms. Nguyen is doing well. There is no new complaint. REVIEW OF SYSTEMS: Otherwise, HEENT: Negative. PULMONARY: Negative. PHYSICAL EXAMINATION: GENERAL: Alert and oriented. VITAL SIGNS: Stable, currently afebrile. HEENT: She is not icteric. NECK: Supple. CHEST: Clear. HEART: S1 and S2. ABDOMEN: Soft. Bowel sounds present. EXTREMITIES: No edema. SKIN: No rash. LABORATORY DATA: Reviewed. IMPRESSION: Leukopenia resolved, thrombocytopenia getting better, COVID-19 on admission, upper respiratory infection does not seem to play a major role at the present time in terms of pneumonia. We will discontinue antibiotic. The patient is stable from Infectious Disease point of view. Discharge planning per Internal Medicine. MD CHERRIE Ramirez/JAMES /[id number]
[2020-02-05 12:34] VITALS: BP 119/56
--- NOTE | 2020-02-05 16:10 | NUR ---
Patient received a discharge order from Dr. Key once Dr. Salazar and Dr. Matos cleared patient for discharge. Patient was given discharge instructions, education, and follow up information. Patient verbalized understanding. No prescriptions were given. Patient IV removed at 1545 and covered with a C/D/I dressing. Patient wheeled to car in ER at 1600 and had no other issues or complaints.
--- NOTE | 2020-02-05 16:37 | NUR ---
Nutrition Screen Note RD Recommendation for Physician: -Recommend low sodium/ADA diet Plan of Care: RD following, monitoring for tolerance and adequacy Nutrition reason for involvement: length of stay Primary Diagnose(s): cirrhosis, COPD, leukopenia, pleural effusion, pneumonia, and thrombocytopenia PMH: BALDERAS with advanced liver cirrhosis, associated with leukopenia and thrombocytopenia, Morbid obesity, Type 2 diabetes on insulin therapy, History of pancreatitis in the past, COPD with chronic asthma, Chronic obstructive sleep apnea, History of GERD, Osteoarthritis, Abdominal ascites. Ht:65 in Wt: 179 lb BMI: 29.8 kg/m2 IBW:[address] Assessment: (02/05/20) Chart reviewed. Labs and meds reviewed. Pt is a 64 year old female admitted with cirrhosis, COPD, leukopenia, pleural effusion, pneumonia, and thrombocytopenia. Pt is on droplet isolation for COVID-19+; therefore, unable to enter room. Attempted to speak to pt over the phone, but she did not answer. There are no reports of loss of appetite or recent unintentional weight loss upon admission. It is recorded that pt consumed 75-100% of meals on 02/02. Will continue to monitor Current Diet: renal/2000 diabetic diet Malnutrition Evaluation (02/05/20) The patient does not meet criteria for a specified degree of malnutrition at this time. Will re-evaluate at follow-up as appropriate. Diet Education Needs Assessment: RD is available for diet education as needed Nutrition Care Level: low Signed: Roseline Stapleton RD, LD
[2020-02-05] MEDS ORDERED: INSULIN GLARGINE 100 UNITS/ML VIAL SQ SCH (17:00)
--- NOTE | 2020-02-05 21:03 | Discharge Summary ---
PRIMARY CARE PHYSICIAN: Dr. Cj Waters. CONSULTANTS: Dr. Noni Salazar and Dr. Jason Matos. FINAL DIAGNOSES: 1. Coronavirus disease 2019 infection associated with pneumonia. 2. Bilateral pleural effusion, greater on the right compared to the left, status post 1.2 L right thoracentesis. 3. Baseline liver cirrhosis and abdominal ascites. 4. Status post urinary tract infection. 5. Status post acute hypoxia secondary to viral infection. 6. Oxygen required on going home. SUMMARY: The patient is a 64-year-old female. She would like to go home today and the patient has been cleared by Dr. Jason Matos and Dr. Noni Salazar. The patient on the day of her presentation went to Urgent Care with increasing shortness of breath. The patient had a chest x-ray and subsequent CT scan showed basilar infiltrate and also she had a large right pleural effusion. The patient placed on antibiotics. At that time, her WBC was 1500, platelet was 29,000. The patient's hemoglobin and hematocrit were 13.4 and 39.3. She has baseline BALDERAS with advanced liver cirrhosis. The patient was stable. She was given antibiotics. Consultation with [employer] aircre[employer]man, Infectious Disease, and also given a diuretic. The patient did better and breathing better. For her right pleural effusion subsequently, she underwent right thoracentesis with 1.2 L of fluid taken out and after that the patient felt much better. She did receive 1 Jumbo platelets during preparation for her thoracentesis. Repeated chest x-ray, no pneumothorax and has significant improvement in pleural effusion. The patient's lab work today; WBC 7.6, hemoglobin 13.3, hematocrit 38, and platelets 72,000. Chemistry panel; sodium is 132, potassium 4.4, chloride 98, bicarb 26, BUN 26, creatinine 0.9, glucose is 275. The patient is on insulin at home. Her blood sugar was elevated because of Decadron given for her COVID-19 infection. The patient's vital signs stable. She is eager to go home and I agree as specialists has cleared the patient. She will go home today and she will follow up with her family physician for close monitoring. The patient will resume all home medications. She is off all antibiotics per Infectious Disease. She already has inhaler. She would not need anticoagulant therapy due to her low platelets. The patient is stable. Follow up as instructed. Activity as tolerated. Resume home medication. Resume home ADA diet. Oxygen arrangement has been done. Home health arrangement has been done. The patient is stable and ready to go home today. MD RACHEL Vieira/JAMES /[id number]
== END 2020-02-05 15:50 | disposition home or self-care (01) | DRG 177 ==
LOC: ER 08:05 → ERHOLD 09:41 → MED/SURG2 15:00 → MED/SURG3 01-31 18:40 → IMCU 02-02 11:17 → UNDODISIN 02-03 17:27
PROVIDERS: ADMIT Internal Medicine; ATTEND Internal Medicine
PROC: XW033E5 Introduction of Remdesivir Anti-infective into Peripheral Vein, Percutaneous Approach, New Technology Group 5 (ICD-10-PCS; principal; 2020-01-31)
PROC: XW0DXF5 Introduction of Other New Technology Therapeutic Substance into Mouth and Pharynx, External Approach, New Technology Group 5 (ICD-10-PCS; 2020-02-01)
PROC: 30233R1 Transfusion of Nonautologous Platelets into Peripheral Vein, Percutaneous Approach (ICD-10-PCS; 2020-02-02)
PROC: 0W993ZZ Drainage of Right Pleural Cavity, Percutaneous Approach (ICD-10-PCS; 2020-02-03)
DX: U07.1 COVID-19 (principal); J12.89 Other viral pneumonia; J96.00 Acute respiratory failure, unspecified whether with hypoxia or hypercapnia; D61.818 Other pancytopenia; D64.9 Anemia, unspecified; K21.9 Gastro-esophageal reflux disease without esophagitis; K74.60 Unspecified cirrhosis of liver; E11.42 Type 2 diabetes mellitus with diabetic polyneuropathy; Z87.891 Personal history of nicotine dependence; Z88.6 Allergy status to analgesic agent; Z88.5 Allergy status to narcotic agent; Z88.8 Allergy status to other drugs, medicaments and biological substances; J44.9 Chronic obstructive pulmonary disease, unspecified; D72.819 Decreased white blood cell count, unspecified; K75.81 Nonalcoholic steatohepatitis (NASH); Z90.49 Acquired absence of other specified parts of digestive tract; R09.02 Hypoxemia; G47.33 Obstructive sleep apnea (adult) (pediatric); Z68.29 Body mass index [BMI] 29.0-29.9, adult; E66.9 Obesity, unspecified; E87.6 Hypokalemia; Z79.4 Long term (current) use of insulin
CPT/HCPCS: 32555; 36415; 71045; 71260; 74470; 80048; 80053; 80076; 81001; 82150; 82550; 82553; 82945; 82948; 83605; 83615; 83735; 83880; 84100; 84157; 84443; 84484; 85025; 85610; 85730; 86900; 87040; 87070; 87071; 87075; 87086; 87102; 87116; 87205; 87206; 88112; 88305; 89051; 93005; 94640; 96372; 99251; 99284; J0456; J0696; J1815; J1940; J2405; J2543; J7030; J7050; P9034; Q9967

== ENCOUNTER 2020-04-02 01:25 | Inpatient (IN) | payer OTHER ==
[~2020-04-02] VITALS: Ht 165.1 cm; Wt 81.2 kg
[2020-04-02 01:57] LABS: BASOPHILS % 0.5 % (0.0-1.0); EOSINOPHILS # (AUTO) 0.2 (0.0-0.4); EOSINOPHILS % 4.7 % (0.0-6.0); HEMATOCRIT 37.2 % (34.2-44.1); HEMOGLOBIN 12.6 g/dL (12.0-16.0); LYMPHOCYTES # (AUTO) 0.7 (1.0-3.2); LYMPHOCYTES % 18.1 % (18.0-39.1); MEAN CORPUSCULAR HEMOGLOBIN 28.4 pg (28-32); MEAN CORPUSCULAR HGB CONC 33.9 g/dL (31-35); MONOCYTES # (AUTO) 0.5 (0.2-0.8); MONOCYTES % 11.3 % (4.4-11.3); NEUTROPHILS # (AUTO) 2.7 (2.1-6.9); NEUTROPHILS % 64.9 % (38.7-80.0); RED BLOOD COUNT 4.43 x10e6/uL (3.6-5.1); RED CELL DISTRIBUTION WIDTH 15.4 % (11.7-14.4)
[2020-04-02 01:58] LABS: PLATELET COUNT 49 x10e3/uL (140-360)
[2020-04-02 02:12] LABS: ALANINE AMINOTRANSFERASE 28 IU/L (0-55); ALBUMIN 2.4 g/dL (3.5-5.0); ALBUMIN/GLOBULIN RATIO 0.7 (0.8-2.0); ALKALINE PHOSPHATASE 143 IU/L (40-150); ANION GAP 13.4 mmol/L (8-16); BLOOD UREA NITROGEN 12 mg/dL (7-26); BUN/CREATININE RATIO 15 (6-25); CARBON DIOXIDE 24 mmol/L (22-29); CHLORIDE 104 mmol/L (98-107); CREATINE KINASE 219 IU/L (29-168); CREATININE, SERUM 0.82 mg/dL (0.57-1.11); EST GLOMERULAR FILTRATION RATE > 60 ML/MIN (60-); GLUCOSE 281 mg/dL (74-118); POTASSIUM 3.4 mmol/L (3.5-5.1); SODIUM 138 mmol/L (136-145)
[2020-04-02 02:19] LABS: B-TYPE NATRIURETIC PEPTIDE2 64.2 pg/mL (0-100)
[2020-04-02 02:54] LABS: INR 1.38; PROTHROMBIN TIME 17.7 seconds (11.9-14.5)
[2020-04-02 02:55] LABS: PARTIAL THROMBOPLASTIN TIME 32.6 seconds (23.8-35.5)
[2020-04-02] MEDS ORDERED: DEXTROSE 50% SYRINGE 50 ML IV PRN ×2 (03:00→07:45)
[2020-04-02] MEDS: ALBUTEROL/IPRATROPIUM 3 ML NEB NEB SCH ×2 (03:00→07:00)
[2020-04-02] MEDS ORDERED: ONDANSETRON HCL INJ 2MG/ML 2ML 2 MG/ML VIAL IV PRN (03:00)
[2020-04-02] MEDS ORDERED: SODIUM CHLORIDE FLUSH 10 ML SYR INJ PRN (03:00)
[2020-04-02 04:00] VITALS: BP 140/67
[2020-04-02] MEDS ORDERED: SIMETHICONE 80 MG CHEW PO PRN (07:45)
[2020-04-02] MEDS ORDERED: HYDRALAZINE HCL 20 MG/ML VIAL IV PRN (07:45)
[2020-04-02] MEDS ORDERED: POTASSIUM CHLORIDE 20 MEQ TAB CR PO PRN (07:45)
[2020-04-02] MEDS ORDERED: CHLORASEPTIC SPRAY 177 ML BTL MM PRN (07:45)
[2020-04-02] MEDS ORDERED: DOCUSATE SODIUM 100 MG CAP PO PRN (07:45)
[2020-04-02] MEDS ORDERED: POLYETHYLENE GLYCOL 3350 17 GM PACK PO PRN (07:45)
[2020-04-02 08:24] VITALS: BP 133/62
[2020-04-02 08:30] VITALS: BP 133/62
[2020-04-02] MEDS ORDERED: FUROSEMIDE INJ 10 MG/ML 4 ML VIAL IV SCH (09:00)
[2020-04-02] MEDS ORDERED: SODIUM CHLORIDE 0.9% 50ML 50 ML ONE (09:47)
[2020-04-02] MEDS: FUROSEMIDE INJ 10 MG/ML 4 ML VIAL IV SCH ×3 (09:55→20:57)
[2020-04-02] MEDS: CEFEPIME 1GM/NS 0.9% 50 ML 50 ML IV SCH ×2 (09:55→20:57)
[2020-04-02] MEDS: INSULIN REGULAR, HUMAN 100 UNIT/1 ML 3ML VIAL SQ SCH ×4 (10:04→22:54)
[2020-04-02 10:10] LABS: CREATINE KINASE 212 IU/L (29-168)
[2020-04-02] MEDS: ALBUTEROL/IPRATROPIUM 3 ML NEB NEB PRN ×2 (10:42→20:46)
[2020-04-02] MEDS: SPIRONOLACTONE 25 MG TAB PO SCH (10:53)
[2020-04-02 15:30] VITALS: BP 136/67
[2020-04-02 16:32] LABS: BODY FLUID TYPE PLEURAL
[2020-04-02 16:33] LABS: BODY FLUID APPEARANCE SL.CLOUDY; BODY FLUID COLOR YELLOW; RBC,BODY FLUID 117 cells/uL; WBC,BODY FLUID 47 cells/uL
[2020-04-02 16:42] LABS: LYMPHOCYTES,BODY FLUID 61 %; MONO/MACROPHG,BODY FLUID 37 %; NEUTROPHILS,BODY FLUID 2 %
[2020-04-02 16:57] LABS: CREATINE KINASE MB 2.6 ng/mL (0-5.0)
[2020-04-02 20:00] VITALS: BP 145/67
[2020-04-02 20:58] VITALS: BP 145/67
[2020-04-03] VITALS (8 sets, daily range): BP systolic 108–151; BP diastolic 54–69
[2020-04-03] MEDS: FUROSEMIDE INJ 10 MG/ML 4 ML VIAL IV SCH (03:18)
[2020-04-03 05:41] LABS: BASOPHILS % 0.9 % (0.0-1.0); EOSINOPHILS # (AUTO) 0.2 (0.0-0.4); EOSINOPHILS % 3.6 % (0.0-6.0); HEMATOCRIT 30.2 % (34.2-44.1); HEMOGLOBIN 10.4 g/dL (12.0-16.0); LYMPHOCYTES # (AUTO) 0.8 (1.0-3.2); LYMPHOCYTES % 18.7 % (18.0-39.1); MEAN CORPUSCULAR HEMOGLOBIN 29.2 pg (28-32); MEAN CORPUSCULAR HGB CONC 34.4 g/dL (31-35); MEAN CORPUSCULAR VOLUME 84.8 fL (81-99); MONOCYTES # (AUTO) 0.6 (0.2-0.8); MONOCYTES % 12.4 % (4.4-11.3); NEUTROPHILS # (AUTO) 2.8 (2.1-6.9); NEUTROPHILS % 63.9 % (38.7-80.0); RED BLOOD COUNT 3.56 x10e6/uL (3.6-5.1); RED CELL DISTRIBUTION WIDTH 15.3 % (11.7-14.4)
[2020-04-03 05:49] LABS: PLATELET COUNT 45 x10e3/uL (140-360)
[2020-04-03 05:59] LABS: ALANINE AMINOTRANSFERASE 21 IU/L (0-55); ALKALINE PHOSPHATASE 107 IU/L (40-150); ANION GAP 10.7 mmol/L (8-16); BLOOD UREA NITROGEN 13 mg/dL (7-26); BUN/CREATININE RATIO 15 (6-25); CALCIUM 7.5 mg/dL (8.4-10.2); CARBON DIOXIDE 27 mmol/L (22-29); CHLORIDE 104 mmol/L (98-107); CREATININE, SERUM 0.84 mg/dL (0.57-1.11); EST GLOMERULAR FILTRATION RATE > 60 ML/MIN (60-); GLUCOSE 205 mg/dL (74-118); POTASSIUM 3.7 mmol/L (3.5-5.1); SODIUM 138 mmol/L (136-145)
[2020-04-03 06:02] LABS: ALBUMIN < 0.4 g/dL (3.5-5.0); ALBUMIN/GLOBULIN RATIO 0.1 (0.8-2.0)
[2020-04-03] MEDS: PANTOPRAZOLE SOD 40 MG TABEC PO SCH (08:31)
[2020-04-03] MEDS: BENZONATATE 100 MG CAP PO PRN (08:32)
[2020-04-03] MEDS: CEFEPIME 1GM/NS 0.9% 50 ML 50 ML IV SCH ×2 (08:32→21:00)
[2020-04-03] MEDS: SPIRONOLACTONE 25 MG TAB PO SCH (08:32)
[2020-04-03] MEDS: INSULIN REGULAR, HUMAN 100 UNIT/1 ML 3ML VIAL SQ SCH ×4 (09:12→21:00)
[2020-04-03] MEDS ORDERED: AMPICILLIN SOD/SULBACTAM 3GM 100 ML IV SCH (12:00)
[2020-04-03] MEDS: AZITHROMYCIN 250 MG TAB PO SCH (12:43)
[2020-04-03] MEDS: ALBUTEROL/IPRATROPIUM 3 ML NEB NEB SCH ×2 (13:00→20:15)
[2020-04-03] MEDS: ONDANSETRON HCL INJ 2MG/ML 2ML 2 MG/ML VIAL IV PRN (17:01)
[2020-04-03] MEDS: BUDESONIDE/FORMOTEROL 160/4.5MCG INHALER INH SCH (20:15)
[2020-04-04] VITALS (9 sets, daily range): BP systolic 116–146; BP diastolic 61–72
[2020-04-04] MEDS: ALBUTEROL/IPRATROPIUM 3 ML NEB NEB SCH ×4 (02:25→20:20)
[2020-04-04] MEDS: BENZONATATE 100 MG CAP PO PRN ×3 (05:16→21:04)
[2020-04-04 05:40] LABS: BASOPHILS % 0.6 % (0.0-1.0); EOSINOPHILS # (AUTO) 0.2 (0.0-0.4); EOSINOPHILS % 3.5 % (0.0-6.0); HEMOGLOBIN 10.7 g/dL (12.0-16.0); LYMPHOCYTES # (AUTO) 0.6 (1.0-3.2); LYMPHOCYTES % 11.7 % (18.0-39.1); MEAN CORPUSCULAR HEMOGLOBIN 28.2 pg (28-32); MEAN CORPUSCULAR HGB CONC 33.4 g/dL (31-35); MEAN CORPUSCULAR VOLUME 84.4 fL (81-99); MONOCYTES # (AUTO) 0.7 (0.2-0.8); MONOCYTES % 12.8 % (4.4-11.3); NEUTROPHILS # (AUTO) 3.8 (2.1-6.9); NEUTROPHILS % 70.8 % (38.7-80.0); RED BLOOD COUNT 3.79 x10e6/uL (3.6-5.1); RED CELL DISTRIBUTION WIDTH 15.6 % (11.7-14.4)
[2020-04-04 05:50] LABS: PLATELET COUNT 47 x10e3/uL (140-360)
[2020-04-04 05:59] LABS: % IRON SATURATION 40 % (15-50); IRON 62 ug/dL (50-170); TOTAL IRON BINDING CAPACITY 154 ug/dL (261-478); TRANSFERRIN 110 mg/dL (180-382)
[2020-04-04 06:19] LABS: ANION GAP 11.7 mmol/L (8-16); BLOOD UREA NITROGEN 14 mg/dL (7-26); BUN/CREATININE RATIO 17 (6-25); CALCIUM 7.8 mg/dL (8.4-10.2); CARBON DIOXIDE 26 mmol/L (22-29); CHLORIDE 103 mmol/L (98-107); CREATININE, SERUM 0.83 mg/dL (0.57-1.11); EST GLOMERULAR FILTRATION RATE > 60 ML/MIN (60-); GLUCOSE 184 mg/dL (74-118); POTASSIUM 3.7 mmol/L (3.5-5.1); SODIUM 137 mmol/L (136-145)
[2020-04-04] MEDS: BUDESONIDE/FORMOTEROL 160/4.5MCG INHALER INH SCH ×2 (07:05→20:20)
[2020-04-04] MEDS: SPIRONOLACTONE 25 MG TAB PO SCH (08:39)
[2020-04-04] MEDS: AZITHROMYCIN 250 MG TAB PO SCH (08:39)
[2020-04-04] MEDS: CEFEPIME 1GM/NS 0.9% 50 ML 50 ML IV SCH ×2 (08:39→21:03)
[2020-04-04] MEDS: PANTOPRAZOLE SOD 40 MG TABEC PO SCH (08:39)
[2020-04-04] MEDS: INSULIN REGULAR, HUMAN 100 UNIT/1 ML 3ML VIAL SQ SCH ×4 (08:40→21:00)
[2020-04-04] MEDS: ONDANSETRON HCL INJ 2MG/ML 2ML 2 MG/ML VIAL IV PRN ×2 (12:24→21:03)
[2020-04-04] MEDS: TRAMADOL HCL 50 MG TAB PO PRN ×2 (12:24→21:21)
[2020-04-05] VITALS (8 sets, daily range): BP systolic 110–133; BP diastolic 57–74
[2020-04-05] MEDS: ALBUTEROL/IPRATROPIUM 3 ML NEB NEB SCH ×5 (01:20→19:58)
[2020-04-05 06:07] LABS: BASOPHILS # (AUTO) 0.1 (0.0-0.1); BASOPHILS % 0.8 % (0.0-1.0); EOSINOPHILS # (AUTO) 0.4 (0.0-0.4); EOSINOPHILS % 5.3 % (0.0-6.0); HEMATOCRIT 35.5 % (34.2-44.1); LYMPHOCYTES # (AUTO) 0.9 (1.0-3.2); LYMPHOCYTES % 12.2 % (18.0-39.1); MEAN CORPUSCULAR HEMOGLOBIN 28.5 pg (28-32); MEAN CORPUSCULAR HGB CONC 33.8 g/dL (31-35); MEAN CORPUSCULAR VOLUME 84.3 fL (81-99); MONOCYTES # (AUTO) 0.8 (0.2-0.8); MONOCYTES % 10.7 % (4.4-11.3); NEUTROPHILS # (AUTO) 5.1 (2.1-6.9); PLATELET COUNT 50 x10e3/uL (140-360); RED BLOOD COUNT 4.21 x10e6/uL (3.6-5.1); RED CELL DISTRIBUTION WIDTH 15.8 % (11.7-14.4)
[2020-04-05 06:38] LABS: ANION GAP 11.5 mmol/L (8-16); BLOOD UREA NITROGEN 16 mg/dL (7-26); BUN/CREATININE RATIO 24 (6-25); CALCIUM 7.6 mg/dL (8.4-10.2); CARBON DIOXIDE 23 mmol/L (22-29); CHLORIDE 103 mmol/L (98-107); CREATININE, SERUM 0.68 mg/dL (0.57-1.11); EST GLOMERULAR FILTRATION RATE > 60 ML/MIN (60-); GLUCOSE 192 mg/dL (74-118); POTASSIUM 3.5 mmol/L (3.5-5.1); SODIUM 134 mmol/L (136-145)
[2020-04-05] MEDS: PANTOPRAZOLE SOD 40 MG TABEC PO SCH (07:30)
[2020-04-05] MEDS: INSULIN REGULAR, HUMAN 100 UNIT/1 ML 3ML VIAL SQ SCH ×4 (07:30→22:50)
[2020-04-05] MEDS: BUDESONIDE/FORMOTEROL 160/4.5MCG INHALER INH SCH ×2 (08:52→19:58)
[2020-04-05] MEDS: CEFEPIME 1GM/NS 0.9% 50 ML 50 ML IV SCH ×2 (09:50→22:49)
[2020-04-05] MEDS ORDERED: MIDAZOLAM HCL 2 MG/2 ML VIAL ONE (11:45)
[2020-04-05] MEDS: METOPROLOL TARTRATE 25 MG TAB PO SCH ×2 (15:16→18:24)
[2020-04-05] MEDS: SPIRONOLACTONE 25 MG TAB PO SCH (15:16)
[2020-04-05] MEDS: AZITHROMYCIN 250 MG TAB PO SCH (15:16)
[2020-04-05] MEDS: TRAMADOL HCL 50 MG TAB PO PRN (18:24)
[2020-04-05] MEDS: HYDROMORPHONE 1MG/1ML INJ IV PRN (22:45)
[2020-04-05] MEDS: ONDANSETRON HCL INJ 2MG/ML 2ML 2 MG/ML VIAL IV PRN (22:45)
[2020-04-06] VITALS (10 sets, daily range): BP systolic 92–111; BP diastolic 49–60
[2020-04-06] MEDS: ALBUTEROL/IPRATROPIUM 3 ML NEB NEB SCH ×4 (01:25→20:35)
[2020-04-06] MEDS: HYDROMORPHONE 1MG/1ML INJ IV PRN ×2 (03:20→09:02)
[2020-04-06 05:03] LABS: BASOPHILS # (AUTO) 0.1 (0.0-0.1); BASOPHILS % 0.8 % (0.0-1.0); EOSINOPHILS # (AUTO) 0.5 (0.0-0.4); EOSINOPHILS % 6.6 % (0.0-6.0); HEMATOCRIT 34.7 % (34.2-44.1); HEMOGLOBIN 11.5 g/dL (12.0-16.0); LYMPHOCYTES # (AUTO) 1.1 (1.0-3.2); LYMPHOCYTES % 14.9 % (18.0-39.1); MEAN CORPUSCULAR HGB CONC 33.1 g/dL (31-35); MEAN CORPUSCULAR VOLUME 84.4 fL (81-99); MONOCYTES # (AUTO) 0.9 (0.2-0.8); MONOCYTES % 12.3 % (4.4-11.3); NEUTROPHILS # (AUTO) 4.9 (2.1-6.9); NEUTROPHILS % 64.5 % (38.7-80.0); PLATELET COUNT 75 x10e3/uL (140-360); RED BLOOD COUNT 4.11 x10e6/uL (3.6-5.1); RED CELL DISTRIBUTION WIDTH 15.9 % (11.7-14.4)
[2020-04-06 05:23] LABS: ANION GAP 12.8 mmol/L (8-16); BLOOD UREA NITROGEN 18 mg/dL (7-26); BUN/CREATININE RATIO 22 (6-25); CALCIUM 7.8 mg/dL (8.4-10.2); CARBON DIOXIDE 26 mmol/L (22-29); CHLORIDE 101 mmol/L (98-107); CREATININE, SERUM 0.81 mg/dL (0.57-1.11); EST GLOMERULAR FILTRATION RATE > 60 ML/MIN (60-); GLUCOSE 118 mg/dL (74-118); POTASSIUM 3.8 mmol/L (3.5-5.1); SODIUM 136 mmol/L (136-145)
[2020-04-06] MEDS: BUDESONIDE/FORMOTEROL 160/4.5MCG INHALER INH SCH ×2 (07:00→22:00)
[2020-04-06] MEDS: INSULIN REGULAR, HUMAN 100 UNIT/1 ML 3ML VIAL SQ SCH ×4 (07:30→21:21)
[2020-04-06] MEDS: ONDANSETRON HCL INJ 2MG/ML 2ML 2 MG/ML VIAL IV PRN (09:02)
[2020-04-06] MEDS: PANTOPRAZOLE SOD 40 MG TABEC PO SCH (09:03)
[2020-04-06] MEDS: CEFEPIME 1GM/NS 0.9% 50 ML 50 ML IV SCH ×2 (09:04→21:21)
[2020-04-06] MEDS: SPIRONOLACTONE 25 MG TAB PO SCH (09:07)
[2020-04-06] MEDS: METOPROLOL TARTRATE 25 MG TAB PO SCH ×2 (09:08→17:00)
[2020-04-06] MEDS: AZITHROMYCIN 250 MG TAB PO SCH (09:08)
[2020-04-06] MEDS ORDERED: TRAMADOL HCL 50 MG TAB PO PRN (13:30)
[2020-04-07] VITALS (8 sets, daily range): BP systolic 94–109; BP diastolic 46–57
[2020-04-07] MEDS: HYDROMORPHONE 1MG/1ML INJ IV PRN ×3 (00:35→19:22)
[2020-04-07] MEDS: ALBUTEROL/IPRATROPIUM 3 ML NEB NEB SCH ×4 (00:55→18:30)
[2020-04-07 07:44] LABS: ALANINE AMINOTRANSFERASE 21 IU/L (0-55); ALBUMIN 1.8 g/dL (3.5-5.0); ALBUMIN/GLOBULIN RATIO 0.6 (0.8-2.0); ALKALINE PHOSPHATASE 105 IU/L (40-150); ANION GAP 10.4 mmol/L (8-16); BLOOD UREA NITROGEN 24 mg/dL (7-26); BUN/CREATININE RATIO 26 (6-25); CALCIUM 7.6 mg/dL (8.4-10.2); CARBON DIOXIDE 24 mmol/L (22-29); CHLORIDE 101 mmol/L (98-107); CREATININE, SERUM 0.93 mg/dL (0.57-1.11); EST GLOMERULAR FILTRATION RATE > 60 ML/MIN (60-); GLUCOSE 214 mg/dL (74-118); POTASSIUM 4.4 mmol/L (3.5-5.1); SODIUM 131 mmol/L (136-145)
[2020-04-07] MEDS: BUDESONIDE/FORMOTEROL 160/4.5MCG INHALER INH SCH ×2 (08:10→18:30)
[2020-04-07] MEDS: AZITHROMYCIN 250 MG TAB PO SCH (08:13)
[2020-04-07] MEDS: CEFEPIME 1GM/NS 0.9% 50 ML 50 ML IV SCH ×2 (08:13→21:00)
[2020-04-07] MEDS: PANTOPRAZOLE SOD 40 MG TABEC PO SCH (08:13)
[2020-04-07] MEDS: SPIRONOLACTONE 25 MG TAB PO SCH (08:13)
[2020-04-07] MEDS: INSULIN REGULAR, HUMAN 100 UNIT/1 ML 3ML VIAL SQ SCH ×4 (08:14→21:00)
[2020-04-07] MEDS: METOPROLOL TARTRATE 25 MG TAB PO SCH (08:15)
[2020-04-07] MEDS ORDERED: FUROSEMIDE 40 MG TAB PO SCH (10:45)
[2020-04-07] MEDS: MIDODRINE HCL 5 MG TABLET PO SCH (15:48)
[2020-04-08] VITALS (9 sets, daily range): BP systolic 104–123; BP diastolic 52–59
[2020-04-08] MEDS: ALBUTEROL/IPRATROPIUM 3 ML NEB NEB SCH ×4 (00:10→18:25)
[2020-04-08] MEDS: BUDESONIDE/FORMOTEROL 160/4.5MCG INHALER INH SCH ×2 (07:00→18:25)
[2020-04-08] MEDS: MIDODRINE HCL 5 MG TABLET PO SCH ×3 (07:37→16:19)
[2020-04-08] MEDS: PANTOPRAZOLE SOD 40 MG TABEC PO SCH (07:37)
[2020-04-08] MEDS: AZITHROMYCIN 250 MG TAB PO SCH (08:05)
[2020-04-08] MEDS: CEFEPIME 1GM/NS 0.9% 50 ML 50 ML IV SCH ×2 (08:21→21:20)
[2020-04-08] MEDS: HYDROMORPHONE 1MG/1ML INJ IV PRN ×3 (08:26→21:20)
[2020-04-08] MEDS: INSULIN REGULAR, HUMAN 100 UNIT/1 ML 3ML VIAL SQ SCH ×4 (09:21→21:00)
[2020-04-08] MEDS: MELATONIN 5 MG TABLET PO PRN (21:20)
[2020-04-08] MEDS: ONDANSETRON HCL 4 MG ORAL DISINTEGRATING TAB PO PRN (21:21)
[2020-04-09] VITALS (9 sets, daily range): BP systolic 118–136; BP diastolic 51–83
[2020-04-09] MEDS: ALBUTEROL/IPRATROPIUM 3 ML NEB NEB SCH ×4 (00:30→19:35)
[2020-04-09 05:05] LABS: BASOPHILS # (AUTO) 0.1 (0.0-0.1); BASOPHILS % 0.6 % (0.0-1.0); EOSINOPHILS # (AUTO) 0.6 (0.0-0.4); EOSINOPHILS % 6.3 % (0.0-6.0); HEMATOCRIT 35.8 % (34.2-44.1); HEMOGLOBIN 12.2 g/dL (12.0-16.0); LYMPHOCYTES # (AUTO) 0.8 (1.0-3.2); LYMPHOCYTES % 8.1 % (18.0-39.1); MEAN CORPUSCULAR HEMOGLOBIN 28.3 pg (28-32); MEAN CORPUSCULAR HGB CONC 34.1 g/dL (31-35); MEAN CORPUSCULAR VOLUME 83.1 fL (81-99); MONOCYTES # (AUTO) 0.8 (0.2-0.8); MONOCYTES % 8.5 % (4.4-11.3); NEUTROPHILS % 75.1 % (38.7-80.0); PLATELET COUNT 90 x10e3/uL (140-360); RED BLOOD COUNT 4.31 x10e6/uL (3.6-5.1); RED CELL DISTRIBUTION WIDTH 16.1 % (11.7-14.4)
[2020-04-09 05:26] LABS: ALBUMIN/GLOBULIN RATIO 0.6 (0.8-2.0); ANION GAP 11.5 mmol/L (8-16); CALCIUM 8.1 mg/dL (8.4-10.2); CREATININE, SERUM 1.03 mg/dL (0.57-1.11); POTASSIUM 4.5 mmol/L (3.5-5.1)
[2020-04-09] MEDS: BUDESONIDE/FORMOTEROL 160/4.5MCG INHALER INH SCH ×2 (07:26→19:35)
[2020-04-09] MEDS: PANTOPRAZOLE SOD 40 MG TABEC PO SCH (09:09)
[2020-04-09] MEDS: AZITHROMYCIN 250 MG TAB PO SCH (09:09)
[2020-04-09] MEDS: CEFEPIME 1GM/NS 0.9% 50 ML 50 ML IV SCH ×2 (09:09→21:25)
[2020-04-09] MEDS: MIDODRINE HCL 5 MG TABLET PO SCH ×3 (09:09→16:26)
[2020-04-09] MEDS: HYDROMORPHONE 1MG/1ML INJ IV PRN ×2 (09:11→16:27)
[2020-04-09] MEDS: INSULIN REGULAR, HUMAN 100 UNIT/1 ML 3ML VIAL SQ SCH ×4 (11:05→21:43)
[2020-04-10] VITALS (8 sets, daily range): BP systolic 112–153; BP diastolic 54–70
[2020-04-10] MEDS: ALBUTEROL/IPRATROPIUM 3 ML NEB NEB SCH ×4 (00:10→19:45)
[2020-04-10 05:41] LABS: BASOPHILS # (AUTO) 0.1 (0.0-0.1); BASOPHILS % 0.7 % (0.0-1.0); EOSINOPHILS # (AUTO) 0.6 (0.0-0.4); HEMATOCRIT 33.6 % (34.2-44.1); HEMOGLOBIN 11.5 g/dL (12.0-16.0); LYMPHOCYTES % 13.6 % (18.0-39.1); MEAN CORPUSCULAR HEMOGLOBIN 29.2 pg (28-32); MEAN CORPUSCULAR HGB CONC 34.2 g/dL (31-35); MEAN CORPUSCULAR VOLUME 85.3 fL (81-99); MONOCYTES # (AUTO) 0.8 (0.2-0.8); NEUTROPHILS % 66.5 % (38.7-80.0); PLATELET COUNT 82 x10e3/uL (140-360); RED BLOOD COUNT 3.94 x10e6/uL (3.6-5.1); RED CELL DISTRIBUTION WIDTH 16.2 % (11.7-14.4)
[2020-04-10 06:00] LABS: ANION GAP 12.4 mmol/L (8-16); CALCIUM 8.2 mg/dL (8.4-10.2); CREATININE, SERUM 1.1 mg/dL (0.57-1.11); POTASSIUM 4.4 mmol/L (3.5-5.1)
[2020-04-10] MEDS: BUDESONIDE/FORMOTEROL 160/4.5MCG INHALER INH SCH ×2 (07:00→19:45)
[2020-04-10] MEDS: HYDROMORPHONE 1MG/1ML INJ IV PRN ×3 (07:20→20:55)
[2020-04-10] MEDS: PANTOPRAZOLE SOD 40 MG TABEC PO SCH (08:55)
[2020-04-10] MEDS: MIDODRINE HCL 5 MG TABLET PO SCH ×3 (08:56→17:28)
[2020-04-10] MEDS: CEFEPIME 1GM/NS 0.9% 50 ML 50 ML IV SCH ×2 (08:57→21:02)
[2020-04-10] MEDS: AZITHROMYCIN 250 MG TAB PO SCH ×2 (08:57→09:09)
[2020-04-10] MEDS: INSULIN REGULAR, HUMAN 100 UNIT/1 ML 3ML VIAL SQ SCH ×4 (09:05→20:55)
[2020-04-10] MEDS ORDERED: SODIUM CHLORIDE 0.9% 1000ML 1,000 ML IV SCH (14:15)
[2020-04-10] MEDS: ONDANSETRON HCL 4 MG ORAL DISINTEGRATING TAB PO PRN ×2 (14:44→20:55)
[2020-04-11] VITALS (7 sets, daily range): BP systolic 130–142; BP diastolic 54–68
[2020-04-11] MEDS: ALBUTEROL/IPRATROPIUM 3 ML NEB NEB SCH ×4 (01:00→19:20)
[2020-04-11] MEDS: ONDANSETRON HCL 4 MG ORAL DISINTEGRATING TAB PO PRN ×3 (04:55→18:39)
[2020-04-11] MEDS: HYDROMORPHONE 1MG/1ML INJ IV PRN ×3 (04:55→18:38)
[2020-04-11] MEDS: INSULIN REGULAR, HUMAN 100 UNIT/1 ML 3ML VIAL SQ SCH ×4 (07:30→21:05)
[2020-04-11] MEDS: BUDESONIDE/FORMOTEROL 160/4.5MCG INHALER INH SCH ×2 (07:37→19:30)
[2020-04-11] MEDS: CEFEPIME 1GM/NS 0.9% 50 ML 50 ML IV SCH ×2 (09:19→21:04)
[2020-04-11] MEDS: MIDODRINE HCL 5 MG TABLET PO SCH ×2 (09:19→12:32)
[2020-04-11] MEDS: PANTOPRAZOLE SOD 40 MG TABEC PO SCH (09:19)
[2020-04-11] MEDS: AZITHROMYCIN 250 MG TAB PO SCH (09:19)
[2020-04-11] MEDS ORDERED: MIDODRINE HCL 5 MG TABLET PO SCH (16:00)
[2020-04-11] MEDS: FUROSEMIDE 40 MG TAB PO SCH (17:38)
[2020-04-12] VITALS (8 sets, daily range): BP systolic 117–139; BP diastolic 58–73
[2020-04-12] MEDS: ALBUTEROL/IPRATROPIUM 3 ML NEB NEB SCH ×4 (01:26→21:00)
[2020-04-12] MEDS: ONDANSETRON HCL 4 MG ORAL DISINTEGRATING TAB PO PRN ×3 (01:59→20:59)
[2020-04-12] MEDS: HYDROMORPHONE 1MG/1ML INJ IV PRN ×3 (01:59→21:04)
[2020-04-12] MEDS: FUROSEMIDE 40 MG TAB PO SCH ×2 (06:00→17:28)
[2020-04-12 06:42] LABS: BASOPHILS # (AUTO) 0.1 (0.0-0.1); BASOPHILS % 0.8 % (0.0-1.0); EOSINOPHILS # (AUTO) 0.8 (0.0-0.4); EOSINOPHILS % 10.3 % (0.0-6.0); HEMATOCRIT 36.8 % (34.2-44.1); LYMPHOCYTES # (AUTO) 0.9 (1.0-3.2); LYMPHOCYTES % 11.9 % (18.0-39.1); MEAN CORPUSCULAR HEMOGLOBIN 29.7 pg (28-32); MEAN CORPUSCULAR HGB CONC 35.3 g/dL (31-35); MONOCYTES # (AUTO) 0.7 (0.2-0.8); MONOCYTES % 9.7 % (4.4-11.3); NEUTROPHILS # (AUTO) 5.1 (2.1-6.9); NEUTROPHILS % 66.6 % (38.7-80.0); PLATELET COUNT 90 x10e3/uL (140-360); RED BLOOD COUNT 4.38 x10e6/uL (3.6-5.1); RED CELL DISTRIBUTION WIDTH 16.3 % (11.7-14.4)
[2020-04-12 07:11] LABS: ALBUMIN 2.1 g/dL (3.5-5.0); ALBUMIN/GLOBULIN RATIO 0.6 (0.8-2.0); ANION GAP 11.3 mmol/L (8-16); CALCIUM 8.4 mg/dL (8.4-10.2); CREATININE, SERUM 1.17 mg/dL (0.57-1.11); POTASSIUM 4.3 mmol/L (3.5-5.1)
[2020-04-12] MEDS: BUDESONIDE/FORMOTEROL 160/4.5MCG INHALER INH SCH ×2 (07:30→21:05)
[2020-04-12] MEDS: INSULIN REGULAR, HUMAN 100 UNIT/1 ML 3ML VIAL SQ SCH ×4 (07:30→21:00)
[2020-04-12] MEDS ORDERED: MIDODRINE 2.5 MG TAB PO SCH (08:00)
[2020-04-12] MEDS: SPIRONOLACTONE 25 MG TAB PO SCH (08:02)
[2020-04-12] MEDS: PANTOPRAZOLE SOD 40 MG TABEC PO SCH (08:02)
[2020-04-12] MEDS: MIDODRINE 2.5 MG TAB PO SCH ×4 (08:02→16:36)
[2020-04-12] MEDS: AZITHROMYCIN 250 MG TAB PO SCH (10:00)
[2020-04-12] MEDS: DIPHENHYDRAMINE HCL 25 MG CAP PO PRN (14:25)
[2020-04-12] MEDS: MELATONIN 5 MG TABLET PO PRN (21:05)
[2020-04-13] VITALS (9 sets, daily range): BP systolic 112–135; BP diastolic 51–67
[2020-04-13] MEDS: ALBUTEROL/IPRATROPIUM 3 ML NEB NEB SCH ×4 (02:20→20:05)
[2020-04-13] MEDS: HYDROMORPHONE 1MG/1ML INJ IV PRN (04:44)
[2020-04-13] MEDS: ONDANSETRON HCL 4 MG ORAL DISINTEGRATING TAB PO PRN (04:44)
[2020-04-13] MEDS: FUROSEMIDE 40 MG TAB PO SCH ×2 (04:54→17:39)
[2020-04-13 07:18] LABS: BASOPHILS # (AUTO) 0.1 (0.0-0.1); EOSINOPHILS # (AUTO) 0.7 (0.0-0.4); EOSINOPHILS % 9.1 % (0.0-6.0); HEMATOCRIT 36.4 % (34.2-44.1); HEMOGLOBIN 12.2 g/dL (12.0-16.0); LYMPHOCYTES # (AUTO) 0.9 (1.0-3.2); LYMPHOCYTES % 11.5 % (18.0-39.1); MEAN CORPUSCULAR HEMOGLOBIN 28.6 pg (28-32); MEAN CORPUSCULAR HGB CONC 33.5 g/dL (31-35); MEAN CORPUSCULAR VOLUME 85.2 fL (81-99); MONOCYTES % 12.6 % (4.4-11.3); NEUTROPHILS # (AUTO) 5.3 (2.1-6.9); NEUTROPHILS % 65.1 % (38.7-80.0); PLATELET COUNT 78 x10e3/uL (140-360); RED BLOOD COUNT 4.27 x10e6/uL (3.6-5.1); RED CELL DISTRIBUTION WIDTH 16.8 % (11.7-14.4)
[2020-04-13] MEDS: BUDESONIDE/FORMOTEROL 160/4.5MCG INHALER INH SCH ×2 (07:26→20:05)
[2020-04-13 07:30] LABS: ALBUMIN/GLOBULIN RATIO 0.6 (0.8-2.0); CALCIUM 8.5 mg/dL (8.4-10.2); CREATININE, SERUM 1.42 mg/dL (0.57-1.11)
[2020-04-13] MEDS: SPIRONOLACTONE 25 MG TAB PO SCH (08:31)
[2020-04-13] MEDS: AZITHROMYCIN 250 MG TAB PO SCH (08:32)
[2020-04-13] MEDS: BALSAM PERU/CASTOR OIL 60 GM OINT...G. TP SCH (08:32)
[2020-04-13] MEDS: MIDODRINE 2.5 MG TAB PO SCH ×2 (08:32→17:39)
[2020-04-13] MEDS: PANTOPRAZOLE SOD 40 MG TABEC PO SCH (08:32)
[2020-04-13] MEDS: INSULIN REGULAR, HUMAN 100 UNIT/1 ML 3ML VIAL SQ SCH ×4 (09:55→21:22)
[2020-04-13] MEDS: MELATONIN 5 MG TABLET PO PRN (21:17)
[2020-04-13] MEDS: DIPHENHYDRAMINE HCL 25 MG CAP PO PRN (21:18)
[2020-04-14 00:22] VITALS: BP 126/56
[2020-04-14] MEDS: ALBUTEROL/IPRATROPIUM 3 ML NEB NEB SCH ×3 (01:05→13:50)
[2020-04-14 04:34] VITALS: BP 131/53
[2020-04-14] MEDS: FUROSEMIDE 40 MG TAB PO SCH (07:03)
[2020-04-14 07:11] LABS: ALBUMIN 2.1 g/dL (3.5-5.0); ALBUMIN/GLOBULIN RATIO 0.6 (0.8-2.0); ANION GAP 10.4 mmol/L (8-16); CALCIUM 8.6 mg/dL (8.4-10.2); CREATININE, SERUM 1.47 mg/dL (0.57-1.11); POTASSIUM 4.4 mmol/L (3.5-5.1)
[2020-04-14 07:29] VITALS: BP 126/53
[2020-04-14] MEDS: INSULIN REGULAR, HUMAN 100 UNIT/1 ML 3ML VIAL SQ SCH ×2 (07:29→11:25)
[2020-04-14 07:32] VITALS: BP 126/53
[2020-04-14] MEDS: BUDESONIDE/FORMOTEROL 160/4.5MCG INHALER INH SCH (08:43)
[2020-04-14] MEDS: SPIRONOLACTONE 25 MG TAB PO SCH (09:21)
[2020-04-14] MEDS: PANTOPRAZOLE SOD 40 MG TABEC PO SCH (09:21)
[2020-04-14] MEDS: BALSAM PERU/CASTOR OIL 60 GM OINT...G. TP SCH (09:21)
[2020-04-14] MEDS: ONDANSETRON HCL 4 MG ORAL DISINTEGRATING TAB PO PRN (09:30)
[2020-04-14 11:27] VITALS: BP 125/49
[2020-04-14 15:26] VITALS: BP 131/54
== END 2020-04-14 16:12 | disposition home or self-care (01) | DRG 432 ==
LOC: ER 01:49 → ERHOLD 02:56 → MED/SURG 04:04
PROVIDERS: ADMIT Internal Medicine; ATTEND Internal Medicine
PROC: 0W993ZX Drainage of Right Pleural Cavity, Percutaneous Approach, Diagnostic (ICD-10-PCS; principal; 2020-04-02)
PROC: 0W9930Z Drainage of Right Pleural Cavity with Drainage Device, Percutaneous Approach (ICD-10-PCS; 2020-04-05)
PROC: 02PYX3Z Removal of Infusion Device from Great Vessel, External Approach (ICD-10-PCS; 2020-04-14)
PROC: 0JPT3XZ Removal of Tunneled Vascular Access Device from Trunk Subcutaneous Tissue and Fascia, Percutaneous Approach (ICD-10-PCS; 2020-04-14)
DX: K74.69 Other cirrhosis of liver (principal); J96.00 Acute respiratory failure, unspecified whether with hypoxia or hypercapnia; J96.01 Acute respiratory failure with hypoxia; K76.6 Portal hypertension; J91.8 Pleural effusion in other conditions classified elsewhere; J94.8 Other specified pleural conditions; Z86.19 Personal history of other infectious and parasitic diseases; Z99.81 Dependence on supplemental oxygen; D69.59 Other secondary thrombocytopenia; E11.9 Type 2 diabetes mellitus without complications; J44.9 Chronic obstructive pulmonary disease, unspecified
CPT/HCPCS: 32552; 32555; 32557; 36415; 71045; 71046; 71250; 74470; 76942; 80048; 80053; 82140; 82550; 82553; 82728; 83540; 83605; 83880; 84466; 84484; 85025; 85610; 85730; 87040; 87070; 87205; 88112; 88305; 89051; 93005; 93306; 94664; 96372; 97139; 99251; 99284; C1729; C1769; J0692; J1170; J1817; J1940; J2250; J2405; J7030; Q0162; U0002

== ENCOUNTER 2020-04-16 23:32 | Inpatient (IN) | payer OTHER ==
[~2020-04-16] VITALS: Ht 165.1 cm; Wt 81.2 kg
[2020-04-17] VITALS (8 sets, daily range): BP systolic 119–145; BP diastolic 52–76
[2020-04-17 00:06] LABS: BASOPHILS # (AUTO) 0.1 (0.0-0.1); EOSINOPHILS # (AUTO) 0.8 (0.0-0.4); EOSINOPHILS % 9.1 % (0.0-6.0); HEMOGLOBIN 14.7 g/dL (12.0-16.0); LYMPHOCYTES # (AUTO) 1.2 (1.0-3.2); LYMPHOCYTES % 12.9 % (18.0-39.1); MEAN CORPUSCULAR HEMOGLOBIN 28.5 pg (28-32); MEAN CORPUSCULAR HGB CONC 34.2 g/dL (31-35); MEAN CORPUSCULAR VOLUME 83.5 fL (81-99); MONOCYTES % 10.3 % (4.4-11.3); NEUTROPHILS # (AUTO) 6.1 (2.1-6.9); NEUTROPHILS % 65.7 % (38.7-80.0); PLATELET COUNT 82 x10e3/uL (140-360); RED BLOOD COUNT 5.15 x10e6/uL (3.6-5.1); RED CELL DISTRIBUTION WIDTH 16.2 % (11.7-14.4)
[2020-04-17 00:15] LABS: INR 1.35; PROTHROMBIN TIME 17.4 seconds (11.9-14.5)
[2020-04-17 00:24] LABS: ALBUMIN 2.4 g/dL (3.5-5.0); ALBUMIN/GLOBULIN RATIO 0.6 (0.8-2.0); ANION GAP 13.7 mmol/L (8-16); CALCIUM 8.7 mg/dL (8.4-10.2); CREATININE, SERUM 1.5 mg/dL (0.57-1.11); POTASSIUM 4.7 mmol/L (3.5-5.1)
[2020-04-17 01:48] LABS: AMPHETAMINES SCREEN,URINE NEGATIVE (NEGATIVE); BENZODIAZEPINES SCREEN,URINE NEGATIVE (NEGATIVE); CLARITY,URINE SL CLOUDY (CLEAR); COLOR,URINE AMBER (YELLOW); KETONES,URINE TRACE (NEGATIVE); LEUKOCYTE ESTERASE ,URINE NEGATIVE (NEGATIVE); NITRITE,URINE POSITIVE (NEGATIVE); PHENCYCLIDINE SCREEN,URINE NEGATIVE (NEGATIVE); PROTEIN,URINE DIPSTICK NEGATIVE (NEGATIVE); URINE UROBILINOGEN 1 mg/dL (0.2 - 1)
[2020-04-17 01:53] LABS: BACTERIA,URINE MODERATE /HPF; EPITHELIAL CELLS,URINE FEW /LPF; RBC,URINE 0-5 /HPF (0-5); WBC,URINE (MAN) 0-5 /HPF (0-5); YEAST,URINE MANY
[2020-04-17] MEDS ORDERED: LACTULOSE SYRUP 20 GM/30 ML UDC PO PRN (02:45)
[2020-04-17] MEDS: SODIUM CHLORIDE 0.9% 1000ML 1,000 ML IV SCH ×2 (04:02→14:53)
[2020-04-17] MEDS: CEFTRIAXONE SOD 1 GM/NS 50 ML 50 ML IV SCH (04:02)
[2020-04-17] MEDS ORDERED: FUROSEMIDE 40 MG TAB PO SCH (09:00)
[2020-04-17] MEDS ORDERED: RIFAXIMIN 550 MG TABLET PO SCH (09:00)
[2020-04-17] MEDS ORDERED: LACTULOSE SYRUP 20 GM/30 ML UDC NG PRN (09:45)
[2020-04-17 09:50] LABS: FREE T4 (FREE THYROXINE) 1.09 ng/dL (0.8-1.8); THYROID STIMULATING HORMONE 2.569 uIU/mL (0.350-4.940)
[2020-04-17] MEDS: FAMOTIDINE 20 MG/2 ML VIAL IV SCH (10:13)
[2020-04-17] MEDS: RIFAXIMIN 550 MG TABLET NG SCH ×2 (10:13→18:21)
[2020-04-17] MEDS: INSULIN GLARGINE 100 UNITS/ML VIAL SQ SCH ×2 (10:13→18:28)
[2020-04-17] MEDS: METHIMAZOLE 5 MG TAB PO SCH (10:13)
[2020-04-17 12:52] LABS: ANION GAP 13.3 mmol/L (8-16); CALCIUM 8.2 mg/dL (8.4-10.2); CREATININE, SERUM 1.28 mg/dL (0.57-1.11); POTASSIUM 4.3 mmol/L (3.5-5.1)
[2020-04-17] MEDS ORDERED: LACTULOSE SYRUP 20 GM/30 ML UDC PO SCH (14:00)
[2020-04-17] MEDS: LACTULOSE SYRUP 20 GM/30 ML UDC NG SCH ×2 (14:54→22:45)
[2020-04-17] MEDS ORDERED: CALCIUM GLUCONATE 10% INJ 9.3 MEQ in SODIUM CHLORIDE 0.9% 100 ML 100 ML IV ONE (15:15)
[2020-04-17] MEDS ORDERED: CALCIUM CARBONATE 500 MG CHEWABLE TABS PO SCH (21:00)
[2020-04-18] VITALS (7 sets, daily range): BP systolic 116–146; BP diastolic 50–97
[2020-04-18] MEDS: CEFTRIAXONE SOD 1 GM/NS 50 ML 50 ML IV SCH (04:00)
[2020-04-18] MEDS: SODIUM CHLORIDE 0.9% 1000ML 1,000 ML IV SCH (04:00)
[2020-04-18 06:02] LABS: BASOPHILS # (AUTO) 0.1 (0.0-0.1); BASOPHILS % 0.8 % (0.0-1.0); EOSINOPHILS # (AUTO) 0.8 (0.0-0.4); EOSINOPHILS % 7.1 % (0.0-6.0); HEMATOCRIT 40.3 % (34.2-44.1); HEMOGLOBIN 13.5 g/dL (12.0-16.0); LYMPHOCYTES % 9.4 % (18.0-39.1); MEAN CORPUSCULAR HEMOGLOBIN 28.8 pg (28-32); MEAN CORPUSCULAR HGB CONC 33.5 g/dL (31-35); MEAN CORPUSCULAR VOLUME 85.9 fL (81-99); MONOCYTES % 9.6 % (4.4-11.3); NEUTROPHILS # (AUTO) 7.8 (2.1-6.9); NEUTROPHILS % 72.5 % (38.7-80.0); PLATELET COUNT 87 x10e3/uL (140-360); RED BLOOD COUNT 4.69 x10e6/uL (3.6-5.1); RED CELL DISTRIBUTION WIDTH 16.3 % (11.7-14.4)
[2020-04-18 06:13] LABS: CALCIUM 8.2 mg/dL (8.4-10.2); CREATININE, SERUM 1.29 mg/dL (0.57-1.11)
[2020-04-18] MEDS: LACTULOSE SYRUP 20 GM/30 ML UDC NG SCH ×3 (06:17→22:00)
[2020-04-18] MEDS: METHIMAZOLE 5 MG TAB PO SCH (10:30)
[2020-04-18] MEDS: FAMOTIDINE 20 MG/2 ML VIAL IV SCH (10:30)
[2020-04-18] MEDS: RIFAXIMIN 550 MG TABLET NG SCH ×2 (10:30→16:10)
[2020-04-18] MEDS: INSULIN GLARGINE 100 UNITS/ML VIAL SQ SCH ×2 (10:45→16:26)
[2020-04-18] MEDS: URSODIOL 300 MG CAP PO SCH ×2 (14:28→21:50)
[2020-04-18] MEDS: HYDROMORPHONE 1MG/1ML INJ IV PRN ×2 (16:12→21:50)
[2020-04-18] MEDS: SPIRONOLACTONE 25 MG TAB PO SCH (16:15)
[2020-04-18] MEDS: ONDANSETRON HCL INJ 2MG/ML 2ML 2 MG/ML VIAL IV PRN ×2 (17:52→21:50)
[2020-04-19] VITALS (9 sets, daily range): BP systolic 96–147; BP diastolic 56–87
[2020-04-19] MEDS: CEFTRIAXONE SOD 1 GM/NS 50 ML 50 ML IV SCH (04:42)
[2020-04-19] MEDS: HYDROMORPHONE 1MG/1ML INJ IV PRN ×3 (04:59→22:01)
[2020-04-19] MEDS: ONDANSETRON HCL INJ 2MG/ML 2ML 2 MG/ML VIAL IV PRN ×3 (04:59→22:00)
[2020-04-19 05:45] LABS: BASOPHILS # (AUTO) 0.1 (0.0-0.1); BASOPHILS % 0.6 % (0.0-1.0); EOSINOPHILS # (AUTO) 0.3 (0.0-0.4); HEMATOCRIT 40.4 % (34.2-44.1); HEMOGLOBIN 13.6 g/dL (12.0-16.0); LYMPHOCYTES # (AUTO) 0.9 (1.0-3.2); LYMPHOCYTES % 8.8 % (18.0-39.1); MEAN CORPUSCULAR HGB CONC 33.7 g/dL (31-35); MEAN CORPUSCULAR VOLUME 86.1 fL (81-99); MONOCYTES # (AUTO) 0.7 (0.2-0.8); MONOCYTES % 6.9 % (4.4-11.3); NEUTROPHILS # (AUTO) 8.3 (2.1-6.9); NEUTROPHILS % 80.1 % (38.7-80.0); PLATELET COUNT 97 x10e3/uL (140-360); RED BLOOD COUNT 4.69 x10e6/uL (3.6-5.1); RED CELL DISTRIBUTION WIDTH 15.9 % (11.7-14.4)
[2020-04-19 05:53] LABS: INR 1.4; PROTHROMBIN TIME 17.9 seconds (11.9-14.5)
[2020-04-19] MEDS: LACTULOSE SYRUP 20 GM/30 ML UDC NG SCH ×3 (06:00→21:45)
[2020-04-19 06:01] LABS: ALBUMIN 2.3 g/dL (3.5-5.0); ALBUMIN/GLOBULIN RATIO 0.6 (0.8-2.0); ANION GAP 12.2 mmol/L (8-16); CALCIUM 8.5 mg/dL (8.4-10.2); CREATININE, SERUM 1.76 mg/dL (0.57-1.11); POTASSIUM 4.2 mmol/L (3.5-5.1)
[2020-04-19] MEDS ORDERED: PROMETHAZINE 12.5MG/ NACL 0.9% 12.5 MG/50 ML BAG IV PRN (07:15)
[2020-04-19] MEDS: INSULIN GLARGINE 100 UNITS/ML VIAL SQ SCH ×2 (07:47→17:30)
[2020-04-19] MEDS: FAMOTIDINE 20 MG/2 ML VIAL IV SCH (08:35)
[2020-04-19] MEDS: SPIRONOLACTONE 25 MG TAB PO SCH ×2 (08:37→16:06)
[2020-04-19] MEDS: RIFAXIMIN 550 MG TABLET NG SCH ×2 (08:37→16:06)
[2020-04-19] MEDS: URSODIOL 300 MG CAP PO SCH ×3 (08:37→21:46)
[2020-04-19] MEDS: METHIMAZOLE 5 MG TAB PO SCH (08:38)
[2020-04-19] MEDS: FUROSEMIDE 40 MG TAB PO SCH (08:38)
[2020-04-19 15:48] LABS: GLUCOSE,BODY FLUID 193 mg/dL
[2020-04-19 16:10] LABS: BODY FLUID APPEARANCE SL.CLOUDY; BODY FLUID COLOR YELLOW; BODY FLUID TYPE PLEURAL
[2020-04-19 16:26] LABS: RBC,BODY FLUID 59 cells/uL; WBC,BODY FLUID 41 cells/uL
[2020-04-19 17:00] LABS: EOSINOPHILS,BODY FLUID 1 %; LYMPHOCYTES,BODY FLUID 7 %; MONO/MACROPHG,BODY FLUID 72 %; NEUTROPHILS,BODY FLUID 18 %; OTHER CELLS,BODY FLUID 2 %
[2020-04-20] VITALS (7 sets, daily range): BP systolic 107–132; BP diastolic 51–59
[2020-04-20] MEDS: CEFTRIAXONE SOD 1 GM/NS 50 ML 50 ML IV SCH (04:04)
[2020-04-20] MEDS: LACTULOSE SYRUP 20 GM/30 ML UDC NG SCH ×3 (05:54→21:59)
[2020-04-20] MEDS: ONDANSETRON HCL INJ 2MG/ML 2ML 2 MG/ML VIAL IV PRN ×2 (05:56→19:56)
[2020-04-20] MEDS: HYDROMORPHONE 1MG/1ML INJ IV PRN ×2 (05:57→19:56)
[2020-04-20 07:44] LABS: BASOPHILS # (AUTO) 0.1 (0.0-0.1); EOSINOPHILS # (AUTO) 0.6 (0.0-0.4); EOSINOPHILS % 8.2 % (0.0-6.0); HEMATOCRIT 37.9 % (34.2-44.1); HEMOGLOBIN 12.9 g/dL (12.0-16.0); LYMPHOCYTES # (AUTO) 0.8 (1.0-3.2); LYMPHOCYTES % 11.2 % (18.0-39.1); MEAN CORPUSCULAR HEMOGLOBIN 28.7 pg (28-32); MEAN CORPUSCULAR VOLUME 84.2 fL (81-99); MONOCYTES # (AUTO) 0.9 (0.2-0.8); MONOCYTES % 12.3 % (4.4-11.3); NEUTROPHILS # (AUTO) 4.9 (2.1-6.9); NEUTROPHILS % 66.6 % (38.7-80.0); PLATELET COUNT 96 x10e3/uL (140-360); RED CELL DISTRIBUTION WIDTH 15.8 % (11.7-14.4)
[2020-04-20 08:05] LABS: ANION GAP 14.9 mmol/L (8-16); CALCIUM 8.3 mg/dL (8.4-10.2); CREATININE, SERUM 2.38 mg/dL (0.57-1.11); POTASSIUM 3.9 mmol/L (3.5-5.1)
[2020-04-20] MEDS: INSULIN GLARGINE 100 UNITS/ML VIAL SQ SCH ×2 (09:00→17:00)
[2020-04-20] MEDS: SPIRONOLACTONE 25 MG TAB PO SCH ×2 (09:00→16:49)
[2020-04-20] MEDS: METHIMAZOLE 5 MG TAB PO SCH (10:04)
[2020-04-20] MEDS: RIFAXIMIN 550 MG TABLET NG SCH ×2 (10:04→16:49)
[2020-04-20] MEDS: URSODIOL 300 MG CAP PO SCH ×3 (10:04→21:59)
[2020-04-20] MEDS: FUROSEMIDE 40 MG TAB PO SCH (10:04)
[2020-04-20] MEDS: BALSAM PERU/CASTOR OIL 60 GM OINT...G. TP SCH (10:05)
[2020-04-20] MEDS: FAMOTIDINE 20 MG/2 ML VIAL IV SCH (10:06)
[2020-04-20] MEDS ORDERED: SPIRONOLACTONE 25 MG TAB PO SCH (17:00)
[2020-04-21] VITALS (8 sets, daily range): BP systolic 109–134; BP diastolic 48–64
[2020-04-21] MEDS: CEFTRIAXONE SOD 1 GM/NS 50 ML 50 ML IV SCH (03:30)
[2020-04-21] MEDS: ONDANSETRON HCL INJ 2MG/ML 2ML 2 MG/ML VIAL IV PRN ×3 (04:12→21:56)
[2020-04-21] MEDS: HYDROMORPHONE 1MG/1ML INJ IV PRN ×3 (04:13→21:56)
[2020-04-21] MEDS: LACTULOSE SYRUP 20 GM/30 ML UDC NG SCH ×3 (05:39→21:37)
[2020-04-21 05:45] LABS: ANION GAP 12.6 mmol/L (8-16); CALCIUM 8.2 mg/dL (8.4-10.2); CREATININE, SERUM 1.98 mg/dL (0.57-1.11); POTASSIUM 3.6 mmol/L (3.5-5.1)
[2020-04-21] MEDS: INSULIN GLARGINE 100 UNITS/ML VIAL SQ SCH ×2 (08:00→17:00)
[2020-04-21] MEDS: FAMOTIDINE 20 MG/2 ML VIAL IV SCH (08:37)
[2020-04-21] MEDS: SPIRONOLACTONE 25 MG TAB PO SCH ×2 (08:37→17:31)
[2020-04-21] MEDS: URSODIOL 300 MG CAP PO SCH ×3 (08:37→21:37)
[2020-04-21] MEDS: METHIMAZOLE 5 MG TAB PO SCH (08:37)
[2020-04-21] MEDS: RIFAXIMIN 550 MG TABLET NG SCH ×2 (08:37→17:31)
[2020-04-21] MEDS: FUROSEMIDE 40 MG TAB PO SCH (08:37)
[2020-04-21] MEDS: BALSAM PERU/CASTOR OIL 60 GM OINT...G. TP SCH (08:38)
[2020-04-21] MEDS ORDERED: DEXTROSE 50% SYRINGE 50 ML IV PRN (17:30)
[2020-04-21] MEDS: INSULIN REGULAR, HUMAN 100 UNIT/1 ML 3ML VIAL SQ SCH ×2 (17:50→21:37)
[2020-04-22] VITALS (8 sets, daily range): BP systolic 118–126; BP diastolic 50–66
[2020-04-22] MEDS: CEFTRIAXONE SOD 1 GM/NS 50 ML 50 ML IV SCH (04:30)
[2020-04-22] MEDS: LACTULOSE SYRUP 20 GM/30 ML UDC NG SCH ×3 (05:50→22:00)
[2020-04-22] MEDS: HYDROMORPHONE 1MG/1ML INJ IV PRN ×3 (05:50→19:15)
[2020-04-22] MEDS: ONDANSETRON HCL INJ 2MG/ML 2ML 2 MG/ML VIAL IV PRN ×3 (05:50→19:15)
[2020-04-22 06:19] LABS: ANION GAP 11.4 mmol/L (8-16); CALCIUM 7.9 mg/dL (8.4-10.2); CREATININE, SERUM 1.53 mg/dL (0.57-1.11); POTASSIUM 3.4 mmol/L (3.5-5.1)
[2020-04-22] MEDS: INSULIN REGULAR, HUMAN 100 UNIT/1 ML 3ML VIAL SQ SCH ×4 (07:30→20:13)
[2020-04-22] MEDS: RIFAXIMIN 550 MG TABLET NG SCH ×2 (08:41→17:15)
[2020-04-22] MEDS: FAMOTIDINE 20 MG/2 ML VIAL IV SCH (08:41)
[2020-04-22] MEDS: URSODIOL 300 MG CAP PO SCH ×3 (08:41→20:13)
[2020-04-22] MEDS: METHIMAZOLE 5 MG TAB PO SCH (08:42)
[2020-04-22] MEDS: SPIRONOLACTONE 25 MG TAB PO SCH ×2 (08:42→17:15)
[2020-04-22] MEDS: FUROSEMIDE 40 MG TAB PO SCH (08:42)
[2020-04-22] MEDS: BALSAM PERU/CASTOR OIL 60 GM OINT...G. TP SCH (08:42)
[2020-04-22] MEDS: INSULIN GLARGINE 100 UNITS/ML VIAL SQ SCH ×2 (08:49→17:39)
[2020-04-22] MEDS ORDERED: ALDACTONE25 MG PO (17:22)
[2020-04-22] MEDS ORDERED: PEPCID20 MG PO (17:22)
[2020-04-22] MEDS ORDERED: LACTULOSE20 GM/30 M NG (17:22)
[2020-04-22] MEDS ORDERED: XIFAXAN550 MG NG (17:22)
[2020-04-23 00:24] VITALS: BP 123/62
[2020-04-23] MEDS: HYDROMORPHONE 1MG/1ML INJ IV PRN (03:34)
[2020-04-23] MEDS: ONDANSETRON HCL INJ 2MG/ML 2ML 2 MG/ML VIAL IV PRN (03:34)
[2020-04-23] MEDS: CEFTRIAXONE SOD 1 GM/NS 50 ML 50 ML IV SCH (03:35)
[2020-04-23 05:06] VITALS: BP 132/53
[2020-04-23] MEDS: LACTULOSE SYRUP 20 GM/30 ML UDC NG SCH (05:49)
[2020-04-23] MEDS ORDERED: PROMETHAZINE 12.5MG/ NACL 0.9% 12.5 MG/50 ML BAG IV PRN (06:45)
[2020-04-23] MEDS: INSULIN REGULAR, HUMAN 100 UNIT/1 ML 3ML VIAL SQ SCH (07:30)
[2020-04-23] MEDS: SPIRONOLACTONE 25 MG TAB PO SCH (08:47)
[2020-04-23] MEDS: FUROSEMIDE 40 MG TAB PO SCH (08:47)
[2020-04-23] MEDS: RIFAXIMIN 550 MG TABLET NG SCH (08:47)
[2020-04-23] MEDS: FAMOTIDINE 20 MG/2 ML VIAL IV SCH (08:47)
[2020-04-23] MEDS: BALSAM PERU/CASTOR OIL 60 GM OINT...G. TP SCH (08:48)
[2020-04-23] MEDS: METHIMAZOLE 5 MG TAB PO SCH (08:48)
[2020-04-23] MEDS: INSULIN GLARGINE 100 UNITS/ML VIAL SQ SCH (08:57)
[2020-04-23 08:58] VITALS: BP 132/53
[2020-04-23 09:35] VITALS: BP 115/52
== END 2020-04-23 11:44 | disposition home or self-care (01) | DRG 442 ==
LOC: ER 23:43 → ERHOLD 04-17 01:46 → MED/SURG2 04-17 02:54
PROVIDERS: ADMIT Internal Medicine; ATTEND Internal Medicine
PROC: 0W990ZX Drainage of Right Pleural Cavity, Open Approach, Diagnostic (ICD-10-PCS; principal; 2020-04-17)
DX: K72.00 Acute and subacute hepatic failure without coma (principal); N17.9 Acute kidney failure, unspecified; N39.0 Urinary tract infection, site not specified; J94.8 Other specified pleural conditions; E72.20 Disorder of urea cycle metabolism, unspecified; K74.69 Other cirrhosis of liver; Z20.828 Contact with and (suspected) exposure to other viral communicable diseases; K75.81 Nonalcoholic steatohepatitis (NASH); G47.30 Sleep apnea, unspecified; J45.909 Unspecified asthma, uncomplicated; I12.9 Hypertensive chronic kidney disease with stage 1 through stage 4 chronic kidney disease, or unspecified chronic kidney disease; N18.30 Chronic kidney disease, stage 3 unspecified
CPT/HCPCS: 32555; 36415; 70450; 71045; 71250; 74018; 74470; 80048; 80053; 80307; 80320; 81001; 82140; 82945; 82948; 83615; 84157; 84439; 84443; 84484; 85025; 85610; 87205; 89051; 93005; 96372; 97139; 99251; 99284; J0696; J1170; J1815; J1817; J2405; J2550; J7030; U0002